=== PATIENT | male | born 1950 | race Caucasian/White ===

== ENCOUNTER 2018-05-01 14:30 | Outpatient (RCR) | payer OTHER, MEDICARE, SELFPAY | END 2018-05-22 23:59 | disposition home or self-care (01) | LOC: PRC 14:30 | PROVIDERS: Visit Provider Family Medicine | DX: J44.9 Chronic obstructive pulmonary disease, unspecified (principal); Z51.89 Encounter for other specified aftercare | CPT/HCPCS: G0424 ==

== ENCOUNTER 2018-05-03 15:55 | Observation (INO) | payer OTHER, MEDICARE, SELFPAY ==
[2018-05-03] VITALS (50 sets, daily range): BP systolic 82–133; BP diastolic 46–78; PULSE 77–97; RESP 14–18; TEMP 36.7–37.4; O2SAT 89–97
--- NOTE | 2018-05-03 16:08 | ED.GENADUL_ITS ---
Discharge Plan Disposition Patient Disposition: [facility] INPATIENT Condition: Fair Discharge Details Chief Complaint: Dizzy/Sync Clinical Impression: Hypotension, Hypoxia, Elevated d-dimer Primary Care Provider: Beena Lovett ED Provider: Morenita Rankin Home Meds and New Rx's Prescriptions: No Action atorvastatin 10 mg Tablet 10 mg PO HS RF: 0 carboxymethylcellulose sodium 0.5 % Dropperette 1 drp ophthalmic (eye) DIRECTED PRNRF: 0 tiotropium-olodaterol [Stiolto Respimat] 2.5-2.5 mcg/actuation Mist 1 puff Inhalation BID RF: 0 ergocalciferol (vitamin D2) 50,000 unit Capsule 1 cap PO DIRECTED RF: 0 hydrochlorothiazide 25 mg Tablet 25 mg PO QAM RF: 0 lisinopril 10 mg Tablet 10 mg PO QAM RF: 0 multivitamin with minerals Tablet 1 tab PO QAM RF: 0 Medical Decision Making 68-year-old male with a history of COPD who presents for hypotension and pulmonary rehab. Systolic blood pressure in the 60s at rehab. He admitted to feeling short of breath and dizzy after rehab which is now resolved. Denies chest pain. Has h/o prostate surgery 2 months ago at [facility]. Blood pressure in ED on arrival 84/51. Oxygen saturation 88-90% which pt's states is his baseline. EKG notes a rate of 90, sinus, low voltage, questionable <1mm ST elevation in I , II, V6. No ST depression. No old EKG to compare. Will repeat EKG. Diagnosis includes acs, pneumonia, PE, dissection, UTI, dehydration, electrolyte abnormality, medication causes. Pt states he has been taking his BP meds as prescribed. Will do an infectious and cardiac workup including d dimer, bnp, blood cultures, urinalysis. 1800 --labs reviewed and note white blood cell count of 10.82. BUN 36, creatinine 2.05, lactate 4.2, d-dimer 1380. Chest x-ray no acute findings. Labs concerning for PE, but unable to perform a CT chest due to altered kidney function. Would order a VQ scan here but the test takes hours to complete and pt may go to the [facility] so may d/w physician at [facility] and whether to give anticoagulation here and then possibility of VQ scan at the [facility]. 1820 -- d/w [facility] - pt can stay here based on insurance and he will likely have to pay for ambulance fee to [place]. D/w pt and he would rather stay here. WIll order VQ scan. UA notes 5-10 WBCs, rare bacteria, trace leukocyte esterace, negative nitrite, negative epithelial cells. Urine culture not done at reflex but will order. Patient has 0 out of 4 Sirs criteria. Suspect his elevated lactate may be due to dehydration. He also has no known history of altered kidney function. 1844 -- D/w Dr. Valencia - accepts pt for admission. 1855 --repeat EKG notes a rate of 84, sinus, improvement/near resolution of less than [address] elevation noted in 1, 2, V6. HPI General Mode of arrival: wheelchair . Date/Time Provider Initiated Documentation: 05/03/18 16:03 . Limitations to Documentation: no limitations . Information obtained by: patient . HPI Narrative: Patient is a 68-year-old male with a history of COPD who presents from pulmonary rehab for hypotension. Patient is followed at the [facility] but started pulmonary rehab here at the hospital this week. Plan is for 3 times weekly. Mele from pulmonary rehab states that patient pressure prior to onset of pulmonary rehab was 106/71 and systolic blood pressure after exercise was in the 60s. Patient states he has a history of hypertension but states since taking his lisinopril and hydrochlorothiazide, his blood pressure is generally within the normal range. Can states that patient's blood pressure was mildly low 2 days ago during pulmonary rehab. Patient states after exercise at pulmonary rehab today he felt short of breath and dizzy. He states his symptoms are now resolving. He currently denies any shortness of breath, dizziness or chest pain. He denies recent known fever, cough, abdominal pain, vomiting, diarrhea, urinary symptoms, recent hospital admission or recent antibiotics. Patient states he has been eating normally. Patient states his normal oxygen saturation is between 80 and 90% on room air. He denies being on home oxygen. Past medical history: COPD, hypertension, prostate cancer stage III, colon cancer - no h/o radiation or chemotherapy Surgical history: Prostate surgery 03/06/18 at [facility], colon surgery with polypectomy and for cancer resection Social history: Quit tobacco in 1999, smoked for 40 years, formal alcohol use, drinks 1-2 times monthly, denies drugs Medications: Stiolto inhaler 2 puffs daily, lisinopril, HCTZ Allergies: NKDA [facility] Home Medications Medication Instructions Recorded Confirmed atorvastatin 10 mg PO HS 05/03/18 05/03/18 carboxymethylcellulose sodium 1 drp OPHTHALMIC (EYE) DIRECTED 05/03/18 PRN ergocalciferol (vitamin D2) 1 cap PO DIRECTED 05/03/18 05/03/18 hydrochlorothiazide 25 mg PO QAM 05/03/18 05/03/18 lisinopril 10 mg PO QAM 05/03/18 05/03/18 multivitamin with minerals 1 tab PO QAM 05/03/18 05/03/18 tiotropium-olodaterol [Stiolto 1 puff INHALATION BID 05/03/18 05/03/18 Respimat] Allergies Allergy/AdvReac Type Severity Reaction Status Date / Time No Known Allergies Allergy Unverified 05/03/18 18:20 Review of Systems Review of Systems All systems reviewed & are unremarkable except as noted in HPI and below Constitutional Denies chills, Denies excessive sweating, Denies fatigue, Denies fever(s), Denies weakness and Denies weight loss Eyes Reports system reviewed and no additional complaints, except as docu and Denies blurry vision ENT Denies vertigo, Reports dizziness, Denies otalgia, Denies nasal congestion, Denies sore throat and Denies throat swelling Cardiovascular Denies chest pain, Denies syncope, Denies rapid heart rate and Reports dyspnea Respiratory Denies cough and Reports dyspnea Gastrointestinal Denies abdominal pain, Denies diarrhea and Denies vomiting Genitourinary Denies hematuria, Denies dysuria and Denies flank pain Musculoskeletal Denies back pain and Denies joint swelling Integumentary/Breasts Denies lesions and Denies rash Neurologic Denies behavioral changes, Denies confusion, Denies vertigo, Reports dizziness, Denies syncope and Denies weakness Psychiatric Denies behavioral changes, Denies confusion and Denies depression Endocrine Denies excessive sweating and Denies fatigue Hematologic/Lymphatic Denies easy bruising and Denies lymphadenopathy Allergic/Immunologic Denies throat swelling Exam Const General: cooperative and healthy appearing Orientation: alert and awake HENSC Head: normal to inspection Ears: hearing grossly normal bilaterally and external ears normal General nose exam: external nose normal Face and sinus: normal facial exam Mouth: oral mucosae normal Teeth and gingiva: dentition normal Throat: posterior oropharynx normal Eyes General: appearance normal, both eyes and all related structures Eyelids: eyelids normal EOM: EOM intact bilaterally Neck Neck: normal visual inspection Lymphatic: no lymphadenopathy noted Chest Chest: normal inspection of the chest Resp Effort & Inspection: normal respiratory effort and able to speak in complete sentences Auscultation: clear to auscultation bilaterally, bronchovesicular breath sounds bilaterally, no crackles, no rales, no rhonchi and wheezes right lower (minimal ) Cardio Rate: regular rate Rhythm: regular rhythm GI Inspection: normal to inspection Palpation: soft, not firm, no guarding, no hepatosplenomegaly, no masses and nontender Auscultation: normal bowel sounds Back/Spine/Pelvis Back: no CVA tenderness Skin General skin exam: no rashes or lesions noted Neuro General: alert and awake Cognition: normal cognition Speech: speech normal Gait: normal gait Motor: muscle tone normal throughout Sensory Exam: no sensory deficits noted Extrem General: normal to inspection, full ROM, normal capillary refill and no edema Psych Appearance: grossly normal Mental Status: mental status grossly normal Speech and Movement: speech and movement normal Affect: normal affect Thought Process: normal
[2018-05-03] MEDS: Normal Saline 250 ML IV (16:20)
--- NOTE | 2018-05-03 16:20 | DI.RAD_ITS ---
SYMPTOM/DIAGNOSIS: SOB, DIZZINESS PA AND LATERAL CHEST: The heart is not enlarged. The lungs appear hyperinflated but clear. No pleural effusion is seen. CONCLUSION: No evidence of acute disease.
[2018-05-03 16:21] LABS: Abs Immature Grans 0.03 k/cumm (0.0-0.09); Absolute Basophil Count 0.04 k/cumm (0.0-0.2); Absolute Eosinophil Count 0.12 k/cumm (0.0-0.7); Absolute Monocyte Count 0.91 k/cumm (0.11-0.7); Absolute Neutrophil Count 8.12 k/cumm (1.2-6.7); Basophils % 0.4; Eosinophils % 1.1; HCT 42.4 % (40.0-50.0); HGB 14.3 g/dL (13.5-17.5); Immature Grans % 0.3; Lactate-non-spesis 4.2 mmol/L (0.6-1.4); Lymphocytes % 14.8; Mean Corp. HGB Concentration 33.7 g/dL (32.0-36.0); Mean Corpuscular Hemoglobin 30.6 pg (27.0-33.0); Mean Corpuscular Volume 90.8 fL (80-95); Mean Platelet Volume 10.7 fL (8.0-11.0); Monocytes % 8.4; Platelet Count 279 x1000/uL (130-400); RBC 4.67 m/cumm (4.50-6.00); RBC Distribution Width 13.3 % (11.8-14.1); White Blood Cell Count 10.82 k/cumm (4.4-10.8)
[2018-05-03 16:39] LABS: ALT 39 U/L (12-78); AST 24 U/L (15-37); Albumin 3.8 g/dL (3.4-5.0); Alkaline Phosphatase 74 U/L (46-116); Anion Gap 12.3 mmol/L (3-11); BUN 36 mg/dL (7-18); Bilirubin, Direct 0.12 mg/dL (0.00-0.20); Bilirubin, Total 0.5 mg/dL (0.2-1.0); CO2 25.7 mmol/L (21.0-32.0); CREATININE 2.05 mg/dL (0.70-1.30); Calcium 9.4 mg/dL (8.5-10.1); Chloride 100 mmol/L (98-107); Estimated GFR 32.45 (mL/min/1.73m2); Glucose 129 mg/dL (70-100); Lipase 150 U/L (73-393); Magnesium 1.9 mg/dL (1.8-2.4); Potassium 3.9 mmol/L (3.5-5.1); Sodium 138 mmol/L (136-145); Total Protein 7.5 g/dL (6.4-8.2)
[2018-05-03 16:42] LABS: Troponin I < 0.02 ng/mL (0.00-0.06)
--- NOTE | 2018-05-03 17:06 | DI.VRAD_ITS ---
EXAM: XR Chest, 2 Views EXAM DATE/TIME: 05/03/2018 4:22 PM CLINICAL HISTORY: 68 years old, male; Signs and symptoms; Shortness of breath and other: Dizziness; Patient HX: SOB, dizziness; Additional info: R/O acute disease TECHNIQUE: Frontal and lateral views of the chest. COMPARISON: No relevant prior studies available. FINDINGS: Lungs: No evidence of acute cardiopulmonary disease. Suggesting mild chronic lung disease. No focal pulmonary consolidation. Pleural space: Within normal limits. No pneumothorax. Heart: Within normal limits. No cardiomegaly. Mediastinum: Within normal limits. Bones/joints: Bony structures unremarkable for age. Old right-sided rib fracture. IMPRESSION: No evidence of acute cardiopulmonary disease. Dictated and Authenticated by: Luis Alberto Hendricks MD. Ordering:PARKER BATRES MD
[2018-05-03 17:21] LABS: D-Dimer 1380 ng/mlFEU (<500)
[2018-05-03 17:52] LABS: NT-proBNP 146 pg/mL
[2018-05-03] MEDS: Normal Saline 1,000 ML 1000 ML IV (18:10)
[2018-05-03 18:18] LABS: Bilirubin Negative (Negative); Blood Negative (Negative); Clarity Clear; Glucose Negative (Negative); Ketones Negative (Negative); Leukocyte Esterase Trace (Negative); Nitrite Negative (Negative); Specific Gravity 1.015 (1.005-1.025); Urobilinogen 0.2 EU/dL (Up TO 0.2); pH 6.5 (5-8)
[2018-05-03 18:25] LABS: Bacteria Rare HPF (Negative); Casts Negative LPF (Negative); Crystals Negative HPF (Negative); Epithelial Cells Negative HPF (Negative); Mucus Negative (Negative); Other Cells Negative (Negative); RBC Negative (0-2)
--- NOTE | 2018-05-03 19:12 | W.PM.HP.N ---
Date of service: 05/03/18 Time of Service: 19:13 Assessment and Plan (1) Hypotension: Current visit: No Status: Acute Hypotension, etiology not clear. Some concern for coronary insufficiency given the onset immediately following exercise along with some subtle EKG changes. Will complete rule out protocol and if workup negative would advise a stress test otherwise a positive d-dimer is noted but I think this is like very likely a false positive. Certainly if patient had a pulmonary embolism sufficient to cause this degree of hypotension one would expect corresponding signs and symptoms. It is possible that dehydration has played some role. I do note the elevated lactate. Perhaps some of this was due to the brief period of hypotension but certainly there is no suggestion at all of infection and therefore septic shock. In short, will trend out the troponins, standby for VQ scan (and less troponins positive in which case we will cancel). Will hold patient's blood pressure medicines provisionally in case there is something evolving here. History of Present Illness Chief Complaint: Hypotension Narrative: Patient is a 68-year-old male with history of COPD and hypertension he was in pulmonary rehab today doing perfectly well however, after he had finished with his exercise he is was sitting down and felt weak and lightheaded. Blood pressure of 60 systolic was noted (unknown pulse). He was brought to the emergency room. In the emergency room initial blood pressure of 80 systolic with pulse of 90 was noted. Patient has been given 2 L of IV fluids and blood pressure now approximately 120 systolic. Patient's has had no chest pain or shortness of breath. No calf pain or swelling. He says he feels entirely well at present. Initial workup in the emergency room of note for EKG with some very subtle ST changes, less than 1 mm in scattered lead (no prior tracing available) with a negative troponin and a d-dimer of 1200. Troponin #2 is pending at this time. Due to creatinine elevation he is not a candidate for CT angiogram and a VQ scan has been ordered. Past medical history: COPD, hypertension Review of Systems Review of Systems All systems reviewed & are unremarkable except as noted in HPI and below PFSH Social History Smoking/Tobacco Use Status: Former Tobacco Use Meds Home Medications Medication Instructions Recorded Confirmed Type atorvastatin 10 mg PO HS 05/03/18 05/03/18 History carboxymethylcellulose sodium 1 drp OPHTHALMIC (EYE) DIRECTED 05/03/18 05/03/18 History PRN ergocalciferol (vitamin D2) 1 cap PO DIRECTED 05/03/18 05/03/18 History hydrochlorothiazide 25 mg PO QAM 05/03/18 05/03/18 History lisinopril 10 mg PO QAM 05/03/18 05/03/18 History multivitamin with minerals 1 tab PO QAM 05/03/18 05/03/18 History tiotropium-olodaterol [Stiolto 1 puff INHALATION BID 05/03/18 05/03/18 History Respimat] Allergies Allergy/AdvReac Type Severity Reaction Status Date / Time No Known Allergies Allergy Unverified 05/03/18 18:20 Exam Narrative Exam Narrative: Blood pressure 133/78 pulse 91 temp 37.1, respirations 16 O2 sat 95% on room. HEENT is unremarkable neck is supple lungs somewhat bronchial but clear. Heart PMI is within normal limits and there is no RV heave. Regular rate and rhythm without murmurs rubs or gallops. Abdomen is soft and nontender. and rectal exams are deferred extremities without cyanosis clubbing or edema, pulses are 2+ and equal, there is no calf tenderness and Homans sign is negative bilaterally Results Labs : 05/03/18 16:10 05/03/18 16:10 Laboratory Results - last 24 hr 05/03/18 05/03/18 05/03/18 16:10 16:10 16:10 WBC 10.82 H RBC 4.67 Hgb 14.3 Hct 42.4 MCV 90.8 MCH 30.6 MCHC 33.7 RDW 13.3 Plt Count 279 MPV 10.7 Immature Gran % 0.3 Neutrophils % 75.0 Lymphocytes % 14.8 Monocytes % 8.4 Eosinophils % 1.1 Basophils % 0.4 Absolute Neutrophils 8.12 H Absolute Lymphocytes 1.60 Absolute Monocytes 0.91 H Absolute Eosinophils 0.12 Absolute Basophils 0.04 D-Dimer Sodium 138 Potassium 3.9 Chloride 100 Carbon Dioxide 25.7 Anion Gap 12.3 H BUN 36 H Creatinine 2.05 H Estimated GFR/1.73 m2 32.45 Glucose 129 H Lactate 4.2 H Calcium 9.4 Magnesium 1.9 Total Bilirubin 0.5 Conjugated Bilirubin 0.12 AST 24 ALT 39 Alkaline Phosphatase 74 Troponin I < 0.02 NT-Pro-B Natriuret Pep Total Protein 7.5 Albumin 3.8 Lipase 150 Urine Color Urine Clarity Urine pH Ur Specific Dickens Urine Protein Urine Ketones Urine Blood Urine Nitrite Urine Bilirubin Urine Urobilinogen Ur Leukocyte Esterase Urine RBC Urine WBC Ur Epithelial Cells Urine Crystals Urine Bacteria Urine Casts Urine Mucus Urine Other Ur Culture Indicated? Urine Glucose 05/03/18 05/03/18 05/03/18 16:10 17:20 18:00 WBC RBC Hgb Hct MCV MCH MCHC RDW Plt Count MPV Immature Gran % Neutrophils % Lymphocytes % Monocytes % Eosinophils % Basophils % Absolute Neutrophils Absolute Lymphocytes Absolute Monocytes Absolute Eosinophils Absolute Basophils D-Dimer 1380 H Sodium Potassium Chloride Carbon Dioxide Anion Gap BUN Creatinine Estimated GFR/1.73 m2 Glucose Lactate Calcium Magnesium Total Bilirubin Conjugated Bilirubin AST ALT Alkaline Phosphatase Troponin I NT-Pro-B Natriuret Pep 146 Total Protein Albumin Lipase Urine Color Yellow Urine Clarity Clear Urine pH 6.5 Ur Specific Dickens 1.015 Urine Protein Negative Urine Ketones Negative Urine Blood Negative Urine Nitrite Negative Urine Bilirubin Negative Urine Urobilinogen 0.2 Ur Leukocyte Esterase Trace H Urine RBC Negative Urine WBC 5-10 Ur Epithelial Cells Negative Urine Crystals Negative Urine Bacteria Rare Urine Casts Negative Urine Mucus Negative Urine Other Negative Ur Culture Indicated? No Urine Glucose Negative Last Vital Signs Temp 37.2 C 05/03/18 18:11 Pulse 91 H 05/03/18 19:01 Resp 16 05/03/18 18:41 BP 133/78 05/03/18 19:01 Pulse Ox 95 05/03/18 19:01
[2018-05-03 20:05] LABS: Troponin I < 0.02 ng/mL (0.00-0.06)
[2018-05-03] MEDS: Atorvastatin 10 MG TAB PO (22:19)
[2018-05-04] VITALS (93 sets, daily range): BP systolic 102–153; BP diastolic 65–99; PULSE 66–106; RESP 8–33; TEMP 36.2–36.8; O2SAT 91–95
[2018-05-04 00:33] LABS: C & S Indicated? Yes
[2018-05-04 07:28] LABS: Troponin I < 0.02 ng/mL (0.00-0.06)
--- NOTE | 2018-05-04 07:57 | INITIAL_ITS ---
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 He has three grown children his daughter lives in [place], [place]. He receives all of his services through the [facility] and recently treated for prostate cancer with surgical intervention. He reports independence with ADL's and transportation. His cars are currently not running and he has been using the [facility] bus to and from places. CURRENT FUNCTIONAL STATUS:: Jose is sitting up in bed, his , daughter and grandson are present. His is asking appropiate questions. She states he has been in the hospital several times in the last few months which have been at the [facility]. He states he did not transfer to the [facility] this time because he did not want to take an ambulance ride. He reports a recent prostate surgery to remove the cancer he is not clear on the details. He does state that his oncologist through the [facility] and [facility] will continue to monitor his labs every three months. ADVANCE DIRECTIVES:: Patient states he completed in the ED CM will follow up Has patient been provided with information about the portal?: Yes Did the patient sign up for the portal?: No CODE STATUS:: Full Code INSURANCE COVERAGE / FINANCIAL ISSUES:: Medicare and [employer] CURRENT HOME/COMMUNITY SERVICES/EQUIPMENT:: [facility], and [facility] rehab PRIMARY CARE PHYSICIAN:: Beena Lovett, ANIL POTENTIAL DISCHARGE NEEDS:: Follow up appointment with primary care at the [facility], and continued services through pulmonary rehab PATIENT/FAMILY EDUCATION NEEDS:: Discharge planning, limitations and follow up plan of care. Ask me three discussion and self management. ANTICIPATED BARRIERS TO DISCHARGE:: None identified TRANSPORTATION:: RCT vs Family to transport home PLAN:: Jose will have a VQ scan today, he is being cared for in the ICU. Jose will be discharged home when medically ready per proivder. He will resume services through Pulmonary rehab and follow [facility] with [facility]. CM referred patient and his spouse to [facility] connections they have two cars that are not working and need assistance with transportation. Will also send a referral to [facility] for options to look at services he may qualify for. Jose agrees to referrals. CM provided RCT route scheudled to Jose and his spouse.
[2018-05-04 08:22] LABS: Lactate-non-spesis 0.8 mmol/L (0.6-1.4)
[2018-05-04 09:24] LABS: Anion Gap 9.3 mmol/L (3-11); BUN 29 mg/dL (7-18); CO2 25.7 mmol/L (21.0-32.0); CREATININE 1.24 mg/dL (0.70-1.30); Calcium 9.1 mg/dL (8.5-10.1); Chloride 106 mmol/L (98-107); Estimated GFR 57.97 (mL/min/1.73m2); Glucose 105 mg/dL (70-100); Potassium 3.8 mmol/L (3.5-5.1); Sodium 141 mmol/L (136-145)
--- NOTE | 2018-05-04 13:31 | DI.VRAD_ITS ---
EXAM: NM Lung Perfusion and Ventilation Scan CLINICAL HISTORY: 68 years old, male; Signs and symptoms; Dyspnea; Patient HX: Hypoxia, hypotension TECHNIQUE: Nuclear Medicine ventilation and perfusion images of the lungs were obtained in multiple projections following radiopharmaceutical inhalation followed by injection of Tc99m MAA. COMPARISON: CR XR CHEST 2V PA LATERAL 05/03/2018 4:34 PM FINDINGS: Moderate inhomogeneity to radiotracer activity on the perfusion scan however this appears to match her be less prominent than the ventilation inhomogeneity. This most likely is an indeterminate examination although it is more suggestive of chronic lung disease than of embolic disease. Minimal central activity on ventilation imaging which also is in keeping with chronic lung disease. IMPRESSION: Indeterminate examination. Dictated and Authenticated by: Luis Alberto Hendricks MD. Ordering:PARKER BATRES MD
[2018-05-04] MEDS: LEVOFLOXACIN 500 MG, LEVOFLOXACIN 250 MG 750 MG PO (13:55)
--- NOTE | 2018-05-04 13:56 | PHARADMIT ---
Addendum entered by Cinthya Aranda 05/05/18 12:30: Pharmacy Note Subjective Listed as observation, outpt stress test needed Objective BP 120/91, weight down 1.9kg overnight, lytes good Micro blood and urine: no growth Assessment BP's fluctuate Levaquin dc'd due to Micro urine Lovenox started HCTZ added today, Lisinopril still held intentionally Plan Original Note: Admission Pharmacy Clinical Review HYPOTENSION Code Status Full Code Current Weight 92.4 kg Renally Cleared and Narrow Therapeutic Index Meds CrCl~60ml/min QTc Value / Action Taken BP Control, Fever BP 102/70 Afebrile Electrolytes reviewed within range, but some Potassium and Magnesium given DVT Prophylaxis NONE Opiate Usage / Scheduled Bowel Regimen Ordered Plt/SCr for Heparin / Enoxaparin Plt 279 SCr 1.24 INR for Warfarin H/H stable, WBC/Bands H/H 14.3/42.4 WBC 10.82 Antibiotic appropriateness Levaquin 750mg oral Cultures and Sensitivities Micro urine: no growth x 24h.....treating anyway, maybe for respiratory status Micro blood: pending Surgical ABX d/c within 24 hr DM control / Insulin Dosing BG 105 Heart Failure (Check EF%) (JACKIE's, B-Block, Diuretics) IV to PO Switch Home Meds Reviewed Stiloto respimat (usually 2 puffs daily, per RT patient prefers one puff twice a day, gets better results) Home Meds Not Ordered Lisinopril/HCTZ-held intentionally, Vit D, MVI, Comments troponin negative x 3, one more level pending Lung VQ scan today
[2018-05-04] MEDS: Potassium Chloride 20 MEQ TABCR PO (14:17)
[2018-05-04 14:36] LABS: Troponin I < 0.02 ng/mL (0.00-0.06)
--- NOTE | 2018-05-04 14:36 | PGE_ITS ---
Assessment and Plan (1) Hypotension: Current visit: Yes Status: Acute Onset of post-exertional hypotension in patient undergoing pulmonary rehab. In discussion with patient it appears that he has had prior episodes, attributed to dehydration, and he is on diuretic therapy in the form of HCTZ and JACKIE-I. Current blood pressure appears improved - continue to hold antihypertensives and monitor closely. Due to elevated DDimer patient underwent V/Q scan - interpreted as intermediate , but notable for likely chronic lung disease as opposed to embolic disease. Hypotension was noted post exercise - has ruled out for ACS, but may benefit from stress testing either here or as an outpatient. Also noted to have trace LE and 5-10 WBCs on microscopy - initiate antibiotics for potential UTI and await urine culture results. Orthostatic blood pressures checked and normal. Elevated Lactate in setting of hypotension, along with KAY - both now improved/ resolved. (2) KAY (acute kidney injury): Current visit: Yes Status: Acute Improved with improving blood pressure. Continue to monitor. JACKIE-I on hold. (3) Hypertension: Current visit: Yes Status: Chronic HCTZ, JACKIE-I on hold. (4) COPD (chronic obstructive pulmonary disease): Current visit: Yes Status: Chronic Continue home regimen of long-acting inhaled anticholinergic. Duonebs prn. (5) DVT prophylaxis: Current visit: Yes Status: Acute Initiate SC Lovenox. Subjective Interval history since last seen: 68-year-old male man with a past medical history significant for COPD and hypertension, admitted from [facility] Emergency Department with hypotension of unclear etiology. Mr. Arevalo was in pulmonary rehab on the day of hisadmission, but following completion of his exercises he felt weak and lightheaded. Blood pressure of 60 systolic was noted (unknown pulse). He was brought to the emergency room where his initial systolic blood pressure was 80 systolic with pulse of 90. Patient was hydrated and referred for admission. The patient experienced no chest pain or shortness of breath, and reports feeling well. Initial workup in the emergency room was noteworthy for an EKG with some very subtle ST changes, less than 1 mm in scattered lead (no prior tracing available) , and the patient has since essentially ruled out with serial cardiac biomarkers , with last troponin pending at this time. Due to the elevation in his creatinine a VQ scan was performed which was interpreted as indeterminate, but more likely suggestive of chronic lung disease in patient with known COPD, than of embolic disease. Of note, the patient's creatinine has improved. There was also initial elevation in lactate, now normalized. No overnight events reported. Exam Narrative Exam Narrative: General: Patient appears comfortable, AAOX3, NAD Neck: Supple CV: Regular, nontachycardic, S1S2, No rubs, murmurs, or gallops. Distant Heart Sounds. Pulmonary: Clear to auscultation bilaterally, no crackles, wheezing, or rhonchi. Abdomen: + Bowel Sounds, soft, nontender, nondistended Vascular: No lower extremity edema Psych: Normal mood and affect. Objective Objective Clinical Data: Abnormal lab results 05/03/18 05/03/18 05/03/18 Range/Units 16:10 16:10 16:10 WBC 10.82 H (4.4-10.8) k/cumm Absolute Neutrophils 8.12 H (1.2-6.7) k/cumm Absolute Monocytes 0.91 H (0.11-0.7) k/cumm D-Dimer (<500) ng/mlFEU Anion Gap 12.3 H (3-11) mmol/L BUN 36 H (7-18) mg/dL Creatinine 2.05 H (0.70-1.30) mg/dL Glucose 129 H (70-100) mg/dL Lactate 4.2 H (0.6-1.4) mmol/L Ur Leukocyte Esterase (Negative) 05/03/18 05/03/18 05/04/18 Range/Units 16:10 18:00 08:05 WBC (4.4-10.8) k/cumm Absolute Neutrophils (1.2-6.7) k/cumm Absolute Monocytes (0.11-0.7) k/cumm D-Dimer 1380 H (<500) ng/mlFEU Anion Gap (3-11) mmol/L BUN 29 H (7-18) mg/dL Creatinine (0.70-1.30) mg/dL Glucose 105 H (70-100) mg/dL Lactate (0.6-1.4) mmol/L Ur Leukocyte Esterase Trace H (Negative) Vital Signs Temperature 36.2 C L 05/04/18 03:00 Temperature Source Temporal Artery Scan 05/04/18 03:00 Pulse 70 05/04/18 03:00 Pulse 89 05/03/18 20:20 Respiratory Rate 13 05/04/18 03:00 Respiratory Effort 05/04/18 03:00 Respiratory Depth Normal 05/04/18 03:00 Respiratory Pattern Normal 05/04/18 03:00 Blood Pressure 102/70 05/04/18 03:00 Blood Pressure Mean 80 05/04/18 03:00 Blood Pressure Position Supine 05/04/18 03:00 Pulse Oximetry 95 05/04/18 03:00 Oxygen Delivery Method Room Air 05/04/18 03:00 Oxygen Flow Rate 0 05/04/18 03:00 Pain Level 0 05/04/18 03:00 Comment 05/03/18 16:00 Intake & Output 05/03/18 05/04/18 05/04/18 23:59 11:59 23:59 Intake Total 2300 / 2300 1050 / 1050 Output Total 1400 / 1400 825 / 825 Balance 900 / 900 225 / 225 Weight 92.4 kg 92.4 kg Intake: IV 1999 / 1999 1000 / 1000 Oral 300 / 300 50 / 50 Output: Urine 1400 / 1400 825 / 825 Other: Urine Color Pale Yellow Urine Appearance Clear Clear Urine Odor None Comment Pt voids apx 100 to 250 cc clear yellow urine, just about every hour. He reports this to be normal for him. Pt voids apx 100 to 250 cc clear yellow urine, just about every hour. He reports this to be normal for him. Voiding Methods Urinal Urinal Laboratory Results WBC 10.82 k/cumm (4.4-10.8) H 05/03/18 16:10 RBC 4.67 m/cumm (4.50-6.00) 05/03/18 16:10 Hgb 14.3 g/dL (13.5-17.5) 05/03/18 16:10 Hct 42.4 % (40.0-50.0) 05/03/18 16:10 MCV 90.8 fL (80-95) 05/03/18 16:10 MCH 30.6 pg (27.0-33.0) 05/03/18 16:10 MCHC 33.7 g/dL (32.0-36.0) 05/03/18 16:10 RDW 13.3 % (11.8-14.1) 05/03/18 16:10 Plt Count 279 x1000/uL (130-400) 05/03/18 16:10 MPV 10.7 fL (8.0-11.0) 05/03/18 16:10 Immature Gran % 0.3 05/03/18 16:10 Neutrophils % 75.0 05/03/18 16:10 Lymphocytes % 14.8 05/03/18 16:10 Monocytes % 8.4 05/03/18 16:10 Eosinophils % 1.1 05/03/18 16:10 Basophils % 0.4 05/03/18 16:10 Absolute Neutrophils 8.12 k/cumm (1.2-6.7) H 05/03/18 16:10 Absolute Lymphocytes 1.60 k/cumm (1.2-3.4) 05/03/18 16:10 Absolute Monocytes 0.91 k/cumm (0.11-0.7) H 05/03/18 16:10 Absolute Eosinophils 0.12 k/cumm (0.0-0.7) 05/03/18 16:10 Absolute Basophils 0.04 k/cumm (0.0-0.2) 05/03/18 16:10 D-Dimer 1380 ng/mlFEU (<500) H 05/03/18 16:10 Sodium 141 mmol/L (136-145) 05/04/18 08:05 Potassium 3.8 mmol/L (3.5-5.1) 05/04/18 08:05 Chloride 106 mmol/L (98-107) 05/04/18 08:05 Carbon Dioxide 25.7 mmol/L (21.0-32.0) 05/04/18 08:05 Anion Gap 9.3 mmol/L (3-11) 05/04/18 08:05 BUN 29 mg/dL (7-18) H 05/04/18 08:05 Creatinine 1.24 mg/dL (0.70-1.30) D 05/04/18 08:05 Estimated GFR/1.73 m2 57.97 (mL/min/1.73m2) 05/04/18 08:05 Glucose 105 mg/dL (70-100) H 05/04/18 08:05 Lactate 0.8 mmol/L (0.6-1.4) 05/04/18 08:05 Calcium 9.1 mg/dL (8.5-10.1) 05/04/18 08:05 Magnesium 1.9 mg/dL (1.8-2.4) 05/03/18 16:10 Total Bilirubin 0.5 mg/dL (0.2-1.0) 05/03/18 16:10 Conjugated Bilirubin 0.12 mg/dL (0.00-0.20) 05/03/18 16:10 AST 24 U/L (15-37) 05/03/18 16:10 ALT 39 U/L (12-78) 05/03/18 16:10 Alkaline Phosphatase 74 U/L (46-116) 05/03/18 16:10 Troponin I < 0.02 ng/mL (0.00-0.06) 05/04/18 06:40 NT-Pro-B Natriuret Pep 146 pg/mL (-299) 05/03/18 17:20 Total Protein 7.5 g/dL (6.4-8.2) 05/03/18 16:10 Albumin 3.8 g/dL (3.4-5.0) 05/03/18 16:10 Lipase 150 U/L (73-393) 05/03/18 16:10 Urine Color Yellow (Yellow) 05/03/18 18:00 Urine Clarity Clear 05/03/18 18:00 Urine pH 6.5 (5-8) 05/03/18 18:00 Ur Specific Adel 1.015 (1.005-1.025) 05/03/18 18:00 Urine Protein Negative mg/dL (Negative) 05/03/18 18:00 Urine Ketones Negative mg/dL (Negative) 05/03/18 18:00 Urine Blood Negative (Negative) 05/03/18 18:00 Urine Nitrite Negative (Negative) 05/03/18 18:00 Urine Bilirubin Negative (Negative) 05/03/18 18:00 Urine Urobilinogen 0.2 EU/dL (Up TO 0.2) 05/03/18 18:00 Ur Leukocyte Esterase Trace (Negative) H 05/03/18 18:00 Urine RBC Negative (0-2) 05/03/18 18:00 Urine WBC 5-10 HPF (0-5) 05/03/18 18:00 Ur Epithelial Cells Negative HPF (Negative) 05/03/18 18:00 Urine Crystals Negative HPF (Negative) 05/03/18 18:00 Urine Bacteria Rare HPF (Negative) 05/03/18 18:00 Urine Casts Negative LPF (Negative) 05/03/18 18:00 Urine Mucus Negative (Negative) 05/03/18 18:00 Urine Other Negative (Negative) 05/03/18 18:00 Ur Culture Indicated? Yes 05/03/18 18:00 Urine Glucose Negative mg/dL (Negative) 05/03/18 18:00 Objective Narrative Objective Narrative: Exam(s) EXAM: NM Lung Perfusion and Ventilation Scan CLINICAL HISTORY: 68 years old, male; Signs and symptoms; Dyspnea; Patient HX: Hypoxia, hypotension TECHNIQUE: Nuclear Medicine ventilation and perfusion images of the lungs were obtained in multiple projections following radiopharmaceutical inhalation followed by injection of Tc99m MAA. COMPARISON: CR XR CHEST 2V PA LATERAL 05/03/2018 4:34 PM FINDINGS: Moderate inhomogeneity to radiotracer activity on the perfusion scan however this appears to match her be less prominent than the ventilation inhomogeneity. This most likely is an indeterminate examination although it is more suggestive of chronic lung disease than of embolic disease. Minimal central activity on ventilation imaging which also is in keeping with chronic lung disease. IMPRESSION: Indeterminate examination.
[2018-05-04] MEDS: Magnesium Oxide 400 MG TAB PO (16:58)
--- NOTE | 2018-05-04 18:29 | DI.NM_ITS ---
SYMPTOM/DIAGNOSIS: HYPOXIA, HYPOTENSION, DYSPNEA, ? PE VENTILATION PERFUSION LUNG SCAN: Ventilation perfusion lung scan was performed according to the usual protocol with intravenous infusion of 5.2 millicuries of Technetium 99 labeled Macro aggregated albumin. Ventilation scanning was performed with inhalation of 31.5 millicuries of Technetium 99 labeled DTPA. Thee is heterogeneity of uptake on both ventilation and perfusion images which is widespread. The ventilation perfusion scans appear fairly well matched and no gross lobar mismatch is seen. CONCLUSION: Indeterminate study. Findings likely due to severe COPD. Pulmonary embolic disease not excluded on the basis of this examination.
[2018-05-04] MEDS: Atorvastatin 10 MG TAB PO (20:52)
[2018-05-05] VITALS (13 sets, daily range): BP systolic 120–146; BP diastolic 91–96; PULSE 66–102; RESP 12–23; TEMP 36.2–36.6; O2SAT 91–96
[2018-05-05 08:26] LABS: Anion Gap 8.2 mmol/L (3-11); BUN 25 mg/dL (7-18); CO2 27.8 mmol/L (21.0-32.0); CREATININE 1.16 mg/dL (0.70-1.30); Calcium 9.2 mg/dL (8.5-10.1); Chloride 103 mmol/L (98-107); Glucose 108 mg/dL (70-100); Potassium 4.3 mmol/L (3.5-5.1); Sodium 139 mmol/L (136-145)
[2018-05-05] MEDS: Enoxaparin 40 MG/0.4 ML SYR SC (09:04)
[2018-05-05] MEDS: Hydrochlorothiazide 25 MG TAB PO (09:04)
--- NOTE | 2018-05-05 12:16 | DSE_ITS ---
Date of service: 05/05/18 Time of Service: 12:03 DS: Diagnosis Discharge Diagnosis (1) Hypotension: Status: Acute (2) KAY (acute kidney injury): Status: Acute Discharge Plan Disposition Patient Disposition: HOME Condition: Improving Discharge Details Reason For Visit: HYPOTENSION Admit Date/Time: 05/03/18 20:52 Admit Provider: Beka Valencia Attending Provider: Beka Valencia Primary Care Provider: Beena Lovett Hospital Course Hospital Course: CC: Hypotension HPI: 68-year-old male man with a past medical history significant for COPD and hypertension, admitted from [facility] Emergency Department with hypotension of unclear etiology. Mr. Arevalo was in pulmonary rehab on the day of hisadmission, but following completion of his exercises he felt weak and lightheaded. He reportedly had worked out vigorously, and following his workout became symptomatic and dizzy. Blood pressure of 60 systolic was noted (unknown pulse) by staff at Pulmonary rehab and he was referred to the emergency room where his initial systolic blood pressure was 80 systolic with pulse of 90. He was hydrated and referred for admission. The patient experienced no chest pain or shortness of breathl. Initial workup in the emergency room was noteworthy for an EKG with some very subtle and minimal ST changes, less than 1 mm in scattered lead (no prior tracing available), and the patient has since ruled out with serial cardiac biomarkers. Due to the elevation in his creatinine a VQ scan was performed which was interpreted as indeterminate, but more likely suggestive of chronic lung disease in patient with known COPD, than of embolic disease. Of note, the patient's creatinine also improved. There was also initial elevation in lactate , normalized the morning following admission. Blood pressure improved over the initial day after admission with both thiazide and home JACKIE-I held, and the patient eventually became normotensive and then hypertensive, with a systolic range of 130-150's since yesterday afternoon. No overnight events reported. Hospital Course: 1) Hypotension: Onset of post-exertional hypotension in patient undergoing virgorous exercise in pulmonary rehab. In discussion with patient it appears that he has had prior episodes, attributed to dehydration, and he is on diuretic therapy in the form of HCTZ and JACKIE-I. Current blood pressure appears improved and now slightly hypertensive. Due to elevated DDimer patient underwent V/Q scan - interpreted as intermediate , but notable for likely chronic lung disease as opposed to embolic disease. Hypotension was noted post exercise - has ruled out for ACS, but may benefit from stress testing either here or as an outpatient. Options were offered but patient refusing to stay until tomorrow when stress testing is available, and opting to undergo outpatient testing. Will ensure rapid testing with ETT with ECHO, and recommend that patient refrain from strenuous activity until then. Also noted to have trace LE and 5-10 WBCs on microscopy, but with urine culture showing no growth X48 hours. Orthostatic blood pressures checked and normal. Mr. Arevalo is being discharged with recommendations for reinitiation of his thiazide, but with continued holding of his JACKIE-I. Repeat BMP also ordered given recent KAY. Elevated Lactate in setting of hypotension, along with KAY - both now improved/ resolved. (2) KAY (acute kidney injury): Improved with improving blood pressure. Unsure of baseline, but original creatinine of 2.05 now normalized at 1.16. Will continue to hold JACKIE-I for now, especially given episode of hypotension, and recheck BMP in 2-3 days. (3) Hypertension: HCTZ restarted, JACKIE-I on hold as above. (4) COPD (chronic obstructive pulmonary disease): Appears Quiescent. Continue home regimen of long-acting inhaled anticholinergic. (5) Disposition Discharge today with recommendations for follow-up with PCP in one week, repeat labs in 3 days, and exercise treadmill stress ECHO soon. Home Meds and New Rx's Prescriptions: Continue atorvastatin 10 mg Tablet 10 mg PO HS RF: 0 carboxymethylcellulose sodium 0.5 % Dropperette 1 drp ophthalmic (eye) DIRECTED PRNRF: 0 tiotropium-olodaterol [Stiolto Respimat] 2.5-2.5 mcg/actuation Mist 1 puff Inhalation BID RF: 0 ergocalciferol (vitamin D2) 50,000 unit Capsule 1 cap PO DIRECTED RF: 0 hydrochlorothiazide 25 mg Tablet 25 mg PO QAM RF: 0 multivitamin with minerals Tablet 1 tab PO QAM RF: 0 Discontinued lisinopril 10 mg Tablet 10 mg PO QAM RF: 0 Discharge Instructions Instructions: Acute Kidney Injury (GEN), Hypotension (GEN) Additional Instructions: Please see your primary care doctor within one week. Repeat blood work in 3 days. Activity:: No Strenuous Activity Equipment/Supplies:: No Equipment Needed Diet:: Heart Healthy Discharge Orders Discharge Orders: Discharge Order (Routine); Ordered 05/05/18 Ordered By: Phi Terry Other Ambulatory Orders: ETT Stress Test (Outpt) (ONCE) (1) Location: Determined by Patient Ordered By: Phi Terry Basic Metabolic Panel (Routine) Timeframe: 3 Days Location: Determined by Patient Ordered By: Phi Terry US echocardiogram (Routine) Location: Determined by Patient Ordered By: Phi Terry Exam Narrative Exam Narrative: General: Patient appears comfortable, AAOX3, NAD Neck: Supple CV: Regular, nontachycardic, S1S2, No rubs, murmurs, or gallops. Distant Heart Sounds. Pulmonary: Clear to auscultation bilaterally, no crackles, wheezing, or rhonchi. Abdomen: + Bowel Sounds, soft, nontender, nondistended Vascular: No lower extremity edema Psych: Normal mood and affect. DS: Data Vitals/I&O Vitals and I&O: Vital Signs Vital Signs Temp Pulse Pulse Resp BP BP BP 05/05/18 08:48 96 H 23 120/91 H 05/05/18 08:40 36.4 C L 93 H 16 120/91 H 05/05/18 08:00 18 05/05/18 04:59 36.3 C L 18 146/96 H 05/05/18 04:00 18 05/05/18 02:00 19 05/05/18 01:50 20 05/05/18 00:42 36.6 C Pulse Ox 05/05/18 08:48 05/05/18 08:40 92 L 05/05/18 08:00 05/05/18 04:59 91 L 05/05/18 04:00 05/05/18 02:00 05/05/18 01:50 05/05/18 00:42 Temperature 36.4 C L 05/05/18 08:40 Temperature Source Temporal Artery Scan 05/05/18 08:40 Pulse 96 H 05/05/18 08:48 Pulse 96 H 05/05/18 08:48 Respiratory Rate 23 05/05/18 08:48 Respiratory Effort 05/05/18 08:40 Respiratory Depth Normal 05/05/18 08:40 Respiratory Pattern Normal 05/05/18 04:59 Blood Pressure 120/91 H 05/05/18 08:48 Blood Pressure Mean 98 05/05/18 08:48 Blood Pressure Position Sitting 05/05/18 08:40 Pulse Oximetry 92 L 05/05/18 08:40 Oxygen Delivery Method Room Air 05/05/18 08:40 Oxygen Flow Rate 0 05/05/18 08:40 Pain Level 0 05/05/18 08:40 Comment 05/03/18 16:00 Intake & Output 05/04/18 05/05/18 05/05/18 23:59 11:59 23:59 Intake Total 480 / 480 865 / 865 Output Total 1600 / 1600 1175 / 1175 Balance -1120 / -1120 -310 / -310 Weight 90.5 kg Intake: Oral 480 / 480 865 / 865 Output: Urine 1600 / 1600 1175 / 1175 Other: Urine Color Yellow Light Caitlyn Urine Appearance Clear Clear Urine Odor Normal Strong Comment unknown amount spilled on floor using urinal at bedside, urine dip unremarkable. Voiding Methods Urinal Urinal Completed studies during hospitalization [Text1]: EXAM: XR Chest, 2 Views EXAM DATE/TIME: 05/03/2018 4:22 PM CLINICAL HISTORY: 68 years old, male; Signs and symptoms; Shortness of breath and other: Dizziness; Patient HX: SOB, dizziness; Additional info: R/O acute disease TECHNIQUE: Frontal and lateral views of the chest. COMPARISON: No relevant prior studies available. FINDINGS: Lungs: No evidence of acute cardiopulmonary disease. Suggesting mild chronic lung disease. No focal pulmonary consolidation. Pleural space: Within normal limits. No pneumothorax. Heart: Within normal limits. No cardiomegaly. Mediastinum: Within normal limits. Bones/joints: Bony structures unremarkable for age. Old right-sided rib fracture. IMPRESSION: No evidence of acute cardiopulmonary disease. EXAM: NM Lung Perfusion and Ventilation Scan CLINICAL HISTORY: 68 years old, male; Signs and symptoms; Dyspnea; Patient HX: Hypoxia, hypotension TECHNIQUE: Nuclear Medicine ventilation and perfusion images of the lungs were obtained in multiple projections following radiopharmaceutical inhalation followed by injection of Tc99m MAA. COMPARISON: CR XR CHEST 2V PA LATERAL 05/03/2018 4:34 PM FINDINGS: Moderate inhomogeneity to radiotracer activity on the perfusion scan however this appears to match her be less prominent than the ventilation inhomogeneity. This most likely is an indeterminate examination although it is more suggestive of chronic lung disease than of embolic disease. Minimal central activity on ventilation imaging which also is in keeping with chronic lung disease. IMPRESSION: Indeterminate examination. Labs on day of discharge: Labs from last 24 hours 05/05/18 05/04/18 08:10 14:00 Sodium 139 Potassium 4.3 Chloride 103 Carbon Dioxide 27.8 Anion Gap 8.2 BUN 25 H Creatinine 1.16 Estimated GFR/1.73 m2 >= 60.00 Glucose 108 H Calcium 9.2 Troponin I < 0.02 Preliminary micro results at discharge 05/03/18 17:20 Blood Culture - Preliminary Blood NO GROWTH 24 HOURS 05/03/18 17:10 Blood Culture - Preliminary Blood NO GROWTH 24 HOURS
--- NOTE | 2018-05-06 10:47 | PDOC.CMDIS ---
- If Service Date Differs Date of service: 05/06/18 Time of Service: 10:48 LACE Index Scoring Tool - Questions: Length of Stay (in days): 3 Acuity (Admit via E.D.?): Yes Comorbidities: Chronic Pulmonary Disease E.D. Visits: 1 - Answers: Total Score: 9 Risk of Readmission: Low Risk Care Management Discharge Reason for Hospitalization: Hypotension post pulmonary rehab Discharge Plan: Jose will be discharged home today with a referral to [facility]. Transporation concerns and mulitple follow up appointments at [place]. Jose was provided the contact information for [facility] and the shuttle schedule. He will discharge home with no addtional services at this time and follow up with the stress lab for outpatient services. He understands he will need to follow up with his [facility] pro[facility] as directed. Patient spouse is present at the time of discharge and states she understands the instruction. Patient/Family Education Needs: Discharge education, limitaitons and follow up plan of care including ask me three discussion and self management.
--- NOTE | 2018-05-06 11:13 | CMDISCH_ITS ---
- If Service Date Differs Date of service: 05/06/18 Time of Service: 10:48 LACE Index Scoring Tool - Questions: Length of Stay (in days): 3 Acuity (Admit via E.D.?): Yes Comorbidities: Chronic Pulmonary Disease E.D. Visits: 1 - Answers: Total Score: 9 Risk of Readmission: Low Risk Care Management Discharge Reason for Hospitalization: Hypotension post pulmonary rehab Discharge Plan: Jose will be discharged home today with a referral to [facility]. Transporation concerns and mulitple follow up appointments at [place]. Jose was provided the contact information for [facility] and the shuttle schedule. He will discharge home with no addtional services at this time and follow up with the stress lab for outpatient services. He understands he will need to follow up with his [facility] pro[facility]der as directed. Patient spouse is present at the time of discharge and states she understands the instruction. Patient/Family Education Needs: Discharge education, limitaitons and follow up plan of care including ask me three discussion and self management.
== END 2018-05-05 13:35 | disposition home or self-care (01) ==
LOC: ER 19:44 → ICU 21:11
PROVIDERS: Admitting Provider General Practice; Emergency Provider Physician Assistant; Visit Provider Internal Medicine
DX: I95.9 Hypotension, unspecified (principal); N17.9 Acute kidney failure, unspecified; J44.9 Chronic obstructive pulmonary disease, unspecified; I10 Essential (primary) hypertension; R79.1 Abnormal coagulation profile; Z87.891 Personal history of nicotine dependence; Z23 Encounter for immunization
CPT/HCPCS: 36410; 36415; 78582; 80048; 80053; 80076; 83690; 87040; 93005; 94640; 96360; 96361; 99222; 99233; 99239; 99285; J1650; 71046; 81003; 81015; 83605; 83735; 83880; 84484; 85025; 85379; 87086; 93010; 99217; G0378

== ENCOUNTER 2018-05-06 01:24 | Outpatient (CLI) | payer OTHER, MEDICARE, SELFPAY ==
[2018-05-06 09:33] LABS: BUN 28 mg/dL (7-18); CREATININE 1.43 mg/dL (0.70-1.30); Calcium 9.2 mg/dL (8.5-10.1); Chloride 103 mmol/L (98-107); Estimated GFR 49.18 (mL/min/1.73m2); Glucose 113 mg/dL (70-100); Potassium 3.9 mmol/L (3.5-5.1); Sodium 139 mmol/L (136-145)
--- NOTE | 2018-05-06 10:30 | MERGE_ITS ---
*[facility]* *[facility]* [address] [place] [address] Date of study: 05/06/2018 Transthoracic Echocardiography M-mode, complete 2D, complete spectral Doppler, and color Doppler *STUDY CONCLUSIONS* Summary: 1. Left ventricle: Wall thickness was at the upper limits of normal. Systolic function was normal. The estimated ejection fraction was 55-60%. Diastolic parameters were normal for age. There was no evidence of elevated ventricular filling pressure by Doppler parameters. 2. Right ventricle: The cavity size was normal. Wall thickness was normal. Systolic function was normal. 3. Atrial septum: No defect or patent foramen ovale was identified. 4. Pulmonary arteries: Pulmonary systolic pressure was in the range of 35mm Hg to 45mm Hg. 5. Inferior vena cava: The vessel was patent and normal in size. The respirophasic diameter changes were in the normal range (greater than or equal to 50%), consistent with normal central venous pressure. *PATIENT PRESENTATION* Height: 180.3cm ((71in) ) S/D Pressure: 143 / 90 Weight: 92.5kg ((203.6lb) ) BSA: 2.17m^2 Test start time: 10:40 AM. Test stop time: 11:30 AM. PERFORMING Unknown ORDERING Phi Terry REFERRING Phi Terry PERFORMING [facility] CHAINMAN RT Sukhi (R)(CT), [facility] REFERRING Beena Lovett *PROCEDURE DATA* Procedure information: The patient was identified by two identifiers. This study was interpreted by [facility]. Pertinent images and digital data are archived for permanent storage and are available for subsequent review. No prior study was available for comparison. Study status: Routine. Transthoracic echocardiography. M-mode, complete 2D, complete spectral Doppler, and color Doppler. A Transthoracic Echocardiogram was performed. Scanning was performed from the parasternal, apical, subcostal, and suprasternal notch acoustic windows. Images were obtained using an [id number] cardiac ultrasound machine. Image quality was adequate. Study completion: The patient tolerated the procedure well. History: PMH: Hypotension. Essential HTN, weakness, lightheaded, dizziness. *CARDIAC ANATOMY* Left ventricle: Wall thickness was at the upper limits of normal. Systolic function was normal. The estimated ejection fraction was 55-60%. Diastolic parameters were normal for age. There was no evidence of elevated ventricular filling pressure by Doppler parameters. Aortic valve: Doppler: VTI ratio of LVOT to aortic valve: 0.72. Valve area (VTI): 2.5cm^2. Indexed valve area (VTI): 1.1cm^2/m^2. Peak velocity ratio of LVOT to aortic valve: 0.73. Valve area (Vmax): 2.5cm^2. Indexed valve area (Vmax): 1.2cm^2/m^2. Mean velocity ratio of LVOT to aortic valve: 0.75. Valve area (Vmean): 2.6cm^2. Indexed valve area (Vmean): 1.2cm^2/m^2. Mean gradient (S): 2.8mm Hg. Peak gradient (S): 4.8mm Hg. Mitral valve: Doppler: There was no evidence for stenosis. There was no significant regurgitation. Valve area by pressure half-time: 2.2cm^2. Indexed valve area by pressure half-time: 1cm^2/m^2. Left atrium: The atrium was normal in size. Atrial septum: No defect or patent foramen ovale was identified. Right ventricle: The cavity size was normal. Wall thickness was normal. Systolic function was normal. Pulmonic valve: Doppler: There was no evidence for stenosis. There was no significant regurgitation. Tricuspid valve: Doppler: There was mild regurgitation. Pulmonary artery: Poorly visualized. Pulmonary systolic pressure was in the range of 35mm Hg to 45mm Hg. Right atrium: The atrium was normal in size. Pericardium: There was no pericardial effusion. Systemic veins: Inferior vena cava: Well visualized. The vessel was patent and normal in size. The respirophasic diameter changes were in the normal range (greater than or equal to 50%), consistent with normal central venous pressure. Baseline ECG: Normal sinus rhythm. Measurements Left ventricle Value Reference LV ID, ED, PLAX 4.2 cm 3.5 - 6.0 LV ID, ES, PLAX 3.0 cm 2.1 - 4.0 LV PW thickness, ED, PLAX 1.0 cm LV end-diastolic volume, 1-p A2C 43 ml LV ejection fraction, 1-p A2C 58 % LV end-diastolic volume, 1-p A4C 44 ml LV ejection fraction, 1-p A4C 54 % LV e', lateral 0.076 m/sec LV E/e', lateral 5 LV e', medial 0.077 m/sec LV E/e', medial 5 LV e', average 0.076 m/sec LV E/e', average 5 Ventricular septum Value Reference IVS thickness, ED, PLAX 1.1 cm LVOT Value Reference LVOT ID, A-P 2.1 cm LVOT area 3.5 cm^2 LVOT peak velocity, S 0.8 m/sec LVOT mean velocity, S 0.6 m/sec LVOT VTI, S 15.2 cm LVOT peak gradient, S 2.6 mm Hg LVOT mean gradient, S 1.6 mm Hg Stroke volume (SV), LVOT DP 52 ml Stroke index (SV/bsa), LVOT DP 24 ml/m^2 Aortic valve Value Reference Aortic valve peak velocity, S 1.1 m/sec Aortic valve mean velocity, S 0.8 m/sec Aortic valve VTI, S 21.0 cm Aortic mean gradient, S 2.8 mm Hg Aortic peak gradient, S 4.8 mm Hg VTI ratio, LVOT/AV 0.72 Aortic valve area, VTI 2.5 cm^2 Velocity ratio, peak, LVOT/AV 0.73 Aortic valve area, peak velocity 2.5 cm^2 Velocity ratio, mean, LVOT/AV 0.75 Aortic valve area, mean velocity 2.6 cm^2 Aortic valve area/bsa, mean velocity 1.2 cm^2/m^2 Aorta Value Reference Aortic root ID, ED 3.5 cm Ascending aorta ID, A-P, S 3.5 cm RVOT Value Reference RVOT VTI, S 9.8 cm Left atrium Value Reference LA ID, A-P, ES 3.5 cm LA ID/bsa, A-P 1.6 cm/m^2 <=2.2 LA area, ES, A4C 12.4 cm^2 8.8 - 23.4 LA area, ES, A2C 10 cm^2 LA volume/bsa, ES, 1-p A4C 13 ml/m^2 LA volume, ES, 2-p 25 ml LA volume/bsa, ES, 2-p 12 ml/m^2 LA/aortic root ratio 1 Mitral valve Value Reference Mitral E-wave peak velocity 0.36 m/sec Mitral A-wave peak velocity 0.67 m/sec Mitral deceleration time (H) 341 ms 150 - 230 Mitral pressure half-time 99 ms Mitral E/A ratio, peak 0.54 Mitral valve area, PHT, DP 2.2 cm^2 Tricuspid valve Value Reference Tricuspid regurg peak velocity 3 m/sec Tricuspid peak RV-RA gradient 36.4 mm Hg Right atrium Value Reference RA area, ES, A4C 10.5 cm^2 8.3 - 19.5 Legend: (L) and (H) jasmeet values outside specified reference range. I have personally reviewed the images and have reviewed and edited the reported findings. Electronically signed by Tha Chen MD 05/06/2018 15:17
== END 2018-05-06 01:44 ==
PROVIDERS: Visit Provider Internal Medicine
DX: N17.9 Acute kidney failure, unspecified (principal); I10 Essential (primary) hypertension; R42 Dizziness and giddiness; R29.898 Other symptoms and signs involving the musculoskeletal system
CPT/HCPCS: 36415; 80048; 93306

== ENCOUNTER 2018-05-09 00:28 | Outpatient (CLI) | payer OTHER, MEDICARE, SELFPAY ==
--- NOTE | 2018-05-09 14:00 | ETT_ITS ---
*[facility]* *[facility]* [address] [place] [address] Stress Electrocardiography Rashel protocol Date of study: 05/09/2018 *PATIENT PRESENTATION* Height: 180.3cm (71in) Blood Pressure: Weight: 92.7kg (204lb) BSA: 2.17m^2 Ordering physician: Phi Terry Impressions: Abnormal study , ST depressions without angina. Summary: 1. Stress: The target heart rate was achieved. Recommendations: If high clinical suspicion for CAD suggest exercise perfusion study for further risk stratification. Indication: R94.32. History: Patient's presenting symptoms: asymptomatic. REASON FOR VISIT: PATIENT ADMITTED TO HOSPITAL 05/03/18 AFTER SYMPTOMATIC HYPOTENSIVE RESPONSE TO EXERCISE DURING PULMONARY REHABILITATION. BLOOD PRESSURE RESPONDED TO 2L FLUID BOLUS, NEGATIVE TROPONINS, AND SUBTLE ST CHANGES IN SCATTERED LEADS ON EKG. OUTPATIENT STRESS TEST ORDERED BY HOSPITALIST. 05/04/18 VENTILATION PERFUSION LUNG SCAN: INDETERMINATE STUDY. FINDINGS LIKELY DUE TO SEVERE COPD. 05/06/18 ECHOCARDIOGRAM: EJECTION FRACTION 55-60%. NORMAL STUDY. PAST MEDICAL HISTORY: COPD. HTN. HX PROSTATE AND COLON CANCER. FAMILY HISTORY: NONE. SMOKING STATUS: 40 YEAR SMOKING HISTORY, 1 07/24 PPD. QUIT IN 1999. EXERCISE ROUTINE: PULMONARY REHABILITATION 3X/WEEK. PMH: COPD. Risk factors: Current tobacco use. Hypertension. ALLERGIES: NO KNOWN ALLERGIES. MEDICATIONS: ATORVASTATIN 10MG, BEDTIME. ERGOCALCIFEROL 1 CAP, WEEKLY. HYDROCHLOROTHIAZIDE 25MG, DAILY. MULTIVITAMIN W/ MINERALS 1 TAB, DAILY. TIOTROPIUM-OLODATEROL 1 PUFF, BID. Protocol: Rashel protocol. Baseline ECG: SINUS RHYTHM. HEART RATE 69 BPM. Stress protocol: + +---+ + !Stage !HR !BP (mmHg) ! + +---+ + !Baseline supine !69 !146/82 (103)! + +---+ + !Baseline standing !77 !144/90 (108)! + +---+ + !Stage I; 1.7mph, 10degrees; 3 min !109!122/70 (87) ! + +---+ + !Stage II; 2.5mph, 12degrees; 3 min!120!128/70 (89) ! + +---+ + !Recovery; 1 min !121!110/58 (75) ! + +---+ + !Recovery; 3 min !102!132/82 (99) ! + +---+ + !Recovery; 6 min !98 !140/74 (96) ! + +---+ + !Recovery; 9 min !97 !128/76 (93) ! + +---+ + * Stress results: Maximal heart rate during stress was 133bpm (88% of maximal predicted heart rate). The maximal predicted heart rate was 152bpm. The target heart rate was achieved. The rate-pressure product for the peak heart rate and blood pressure was 03655gh Hg/min. Stress ECG: TREADMILL PORTION OF EXERCISE STRESS TEST ENDED IN 7MIN 27SEC DUE TO PATIENT FATIGUE AND DYSPNEA. APPROPRIATE HEART RATE RESPONSE TO EXERCISE. HYPOTENSIVE RESPONSE TO EXERCISE, ASYMPTOMATIC. MAX HEART RATE 133 BPM, 87% OF TARGET. APPROXIMATE METS ACHIEVED 9.26. NO ANGINA REPORTED. NO ECTOPY NOTED. UPWARD SLOPING ST SEGMENT DEPRESSION NOTED IN LEADS V3 AND V4 DURING STAGE [address] OF RASHEL [address]OL. HORIZONTAL [address] SEGMENT DEPRESSION NOTED IN LEADS V3, V4, AND V5 DURING IMMEDIATE RECOVERY PERIOD. CONTINUED HORIZONTAL ST SEGMENT DEPRESSION OF LEADS V3 AND V4 NOTED THROUGHOUT RECOVERY, RETURNING TO BASELINE IN MINUTE 9 OF RECOVERY PERIOD. AVERAGE FUNCTIONAL CAPCITY. Study data: Marta Rodriguez MD supervised and was readily available during the procedure. This study was interpreted by [facility]. Study status: Routine. Consent: The risks, benefits, and alternatives to the procedure were explained to the patient and informed consent was obtained. Procedure: Initial setup. A baseline ECG was recorded. Surface ECG leads and manual cuff blood pressure measurements were monitored. Heart sounds: Normal. Lung sounds: Normal. Supplemental oxygen. Oxygen, at an FIO2 of 92% was administered throughout the procedure. Treadmill exercise testing was performed using the Rashel protocol. Study completion: The patient tolerated the procedure well and was discharged from the lab. Discharge: The patient left the laboratory in stable condition. Birthdate: Patient birthdate: 1950. Sex: Gender: male. Study date: Study date: 05/09/2018. Study time: 02:00 PM. Signature Documentation: The Stress ECG portion of this study was interpreted by Marta Rodriguez MD. Electronically signed by Marta Rodriguez 05/09/2018 15:53
== END 2018-05-09 00:48 ==
PROVIDERS: Visit Provider Internal Medicine
DX: I95.89 Other hypotension (principal); R94.30 Abnormal result of cardiovascular function study, unspecified; R42 Dizziness and giddiness; I10 Essential (primary) hypertension; J44.9 Chronic obstructive pulmonary disease, unspecified; Z87.891 Personal history of nicotine dependence
CPT/HCPCS: 93017

== ENCOUNTER 2018-06-10 15:48 | Outpatient (RCR) | payer OTHER, MEDICARE, SELFPAY | END 2018-06-10 15:49 | disposition other institution (70) | LOC: PRC 15:48 | PROVIDERS: Visit Provider Family Medicine | DX: J44.9 Chronic obstructive pulmonary disease, unspecified (principal); Z51.89 Encounter for other specified aftercare | CPT/HCPCS: G0424 ==

== ENCOUNTER 2018-06-19 02:02 | Outpatient (RCR) | payer OTHER, MEDICARE, SELFPAY | END 2018-06-21 23:59 | disposition home or self-care (01) | LOC: PRC 02:02 | DX: J44.9 Chronic obstructive pulmonary disease, unspecified (principal); Z51.89 Encounter for other specified aftercare | CPT/HCPCS: G0424 ==

== ENCOUNTER 2018-06-22 04:30 | Outpatient (RCR) | payer OTHER, MEDICARE, SELFPAY | END 2018-07-22 23:59 | disposition home or self-care (01) | LOC: PRC 04:30 | DX: J44.9 Chronic obstructive pulmonary disease, unspecified (principal); Z51.89 Encounter for other specified aftercare | CPT/HCPCS: G0424 ==

== ENCOUNTER 2018-07-23 10:37 | Outpatient (RCR) | payer MEDICARE, OTHER, SELFPAY ==
--- NOTE | 2018-08-13 10:05 | PR3E_ITS ---
68 year old male who graduated Pulmonary Rehabilitation Phase 2 for COPD on 08/09/18 and decided to transition to the maintenance phase, 2 days per week. PMH: COPD, emphysema, colon cancer, migraines First day of exercise: 08/13/18: BP at rest 124/81, HR rest 76 bpm, O2 room air 90%. Patient completed 48 minutes of exercise: NuStep 12 minutes, UBE 12 minutes, treadmill 12 minutes, bike 12 minutes and free weights UBWT/LBWT 3lbs ea, 20 reps. O2 w/ exercise ranged 89-93%, HR w/ exercise ranged 103-121 bpm. ISMAEL RPB/RPE scores 11-12. BP with exercise ranged 136/78-139/78. Post exercise BP 131/80, O2 89%. Tolerated exercise regimen without any adverse signs or symptoms. No concerns at this time, will continue to progress as tolerated.
== END 2018-08-13 15:17 ==
LOC: PRC 10:37
DX: J44.9 Chronic obstructive pulmonary disease, unspecified (principal); Z51.89 Encounter for other specified aftercare
CPT/HCPCS: G0424

== ENCOUNTER 2018-08-22 09:00 | Outpatient (RCR) | payer SELFPAY | END 2018-08-22 23:59 | disposition home or self-care (01) | LOC: CR 09:00 | PROVIDERS: Visit Provider Family Medicine | DX: Z51.89 Encounter for other specified aftercare (principal) ==

== ENCOUNTER 2018-09-19 12:53 | Outpatient (RCR) | payer SELFPAY | END 2018-09-19 23:59 | disposition home or self-care (01) | LOC: CR 12:53 | PROVIDERS: Visit Provider Family Medicine | DX: Z51.89 Encounter for other specified aftercare (principal) ==

== ENCOUNTER 2018-10-17 09:00 | Outpatient (RCR) | payer SELFPAY | END 2018-10-20 23:59 | disposition home or self-care (01) | LOC: CR 09:00 | PROVIDERS: Visit Provider Family Medicine | DX: Z51.89 Encounter for other specified aftercare (principal) ==

== ENCOUNTER 2018-11-19 09:00 | Outpatient (RCR) | payer SELFPAY | END 2018-11-19 23:59 | disposition home or self-care (01) | LOC: CR 09:00 | PROVIDERS: Visit Provider Family Medicine | DX: Z51.89 Encounter for other specified aftercare (principal) ==

== ENCOUNTER 2018-12-19 13:36 | Outpatient (RCR) | payer SELFPAY | END 2018-12-20 23:59 | disposition home or self-care (01) | LOC: CR 13:36 | PROVIDERS: Visit Provider Family Medicine | DX: Z51.89 Encounter for other specified aftercare (principal) ==

== ENCOUNTER 2019-01-16 11:27 | Outpatient (RCR) | payer SELFPAY | END 2019-01-19 23:59 | disposition home or self-care (01) | LOC: CR 11:27 | PROVIDERS: Visit Provider Family Medicine | DX: Z51.89 Encounter for other specified aftercare (principal) ==

== ENCOUNTER 2019-02-18 13:29 | Outpatient (RCR) | payer SELFPAY | END 2019-02-19 23:59 | disposition home or self-care (01) | LOC: CR 13:29 | PROVIDERS: Visit Provider Family Medicine | DX: Z51.89 Encounter for other specified aftercare (principal) ==

== ENCOUNTER 2019-03-20 09:00 | Outpatient (RCR) | payer SELFPAY | END 2019-03-22 23:59 | disposition home or self-care (01) | LOC: CR 09:00 | PROVIDERS: Visit Provider Family Medicine | DX: Z51.89 Encounter for other specified aftercare (principal) ==

== ENCOUNTER 2019-04-03 09:00 | Outpatient (RCR) | payer SELFPAY | END 2019-04-21 23:59 | disposition home or self-care (01) | LOC: CR 09:00 | PROVIDERS: Visit Provider Family Medicine | DX: Z51.89 Encounter for other specified aftercare (principal) ==

== ENCOUNTER 2019-05-22 12:02 | Outpatient (RCR) | payer SELFPAY | END 2019-05-22 23:59 | disposition home or self-care (01) | LOC: CR 12:02 | PROVIDERS: Visit Provider Family Medicine | DX: Z51.89 Encounter for other specified aftercare (principal) ==

== ENCOUNTER 2019-06-17 15:16 | Outpatient (RCR) | payer SELFPAY | END 2019-06-21 23:59 | disposition home or self-care (01) | LOC: CR 15:16 | PROVIDERS: Visit Provider Family Medicine | DX: Z51.89 Encounter for other specified aftercare (principal) ==

== ENCOUNTER 2019-07-17 09:00 | Outpatient (RCR) | payer SELFPAY | END 2019-07-22 23:59 | disposition home or self-care (01) | LOC: CR 09:00 | PROVIDERS: Visit Provider Family Medicine | DX: Z51.89 Encounter for other specified aftercare (principal) ==

== ENCOUNTER 2019-08-14 09:00 | Outpatient (RCR) | payer SELFPAY | END 2019-08-22 23:59 | disposition home or self-care (01) | LOC: CR 09:00 | PROVIDERS: Visit Provider Family Medicine | DX: Z51.89 Encounter for other specified aftercare (principal) ==

== ENCOUNTER 2019-09-18 08:00 | Outpatient (RCR) | payer SELFPAY | END 2019-09-20 23:59 | disposition home or self-care (01) | LOC: CR 08:00 | PROVIDERS: Visit Provider Family Medicine | DX: Z51.89 Encounter for other specified aftercare (principal) ==

== ENCOUNTER 2019-09-30 08:00 | Outpatient (RCR) | payer SELFPAY | END 2019-10-21 23:59 | disposition home or self-care (01) | LOC: CR 08:00 | PROVIDERS: Visit Provider Family Medicine | DX: Z51.89 Encounter for other specified aftercare (principal) ==

== ENCOUNTER 2021-01-18 10:00 | Outpatient (RCR) | payer SELFPAY ==
[2020-12-21 11:02] VITALS: BP 168/74; PULSE 72
[2020-12-23 09:46] VITALS: BP 146/85; PULSE 75; O2SAT 92
[2020-12-28 09:45] VITALS: BP 146/89; PULSE 82
[2020-12-30 09:54] VITALS: BP 150/91; PULSE 74
[2021-01-04 09:44] VITALS: BP 127/79; PULSE 79
[2021-01-06 09:34] VITALS: BP 155/89; PULSE 69
[2021-01-11 09:35] VITALS: BP 165/64; PULSE 77
[2021-01-13 09:42] VITALS: BP 162/84; PULSE 72
[2021-01-18 09:57] VITALS: BP 151/81; PULSE 82
== END 2021-01-19 23:59 | disposition home or self-care (01) ==
LOC: CR 10:00
PROVIDERS: Visit Provider Family Medicine
DX: Z51.89 Encounter for other specified aftercare (principal)

== ENCOUNTER 2021-02-17 10:00 | Outpatient (RCR) | payer SELFPAY ==
[2021-01-20 00:26] VITALS: BP 151/81; PULSE 82
[2021-01-20 10:03] VITALS: BP 150/81; PULSE 75
[2021-01-27 10:12] VITALS: BP 160/89; PULSE 71
[2021-02-01 09:55] VITALS: BP 162/83; PULSE 78
[2021-02-03 10:02] VITALS: BP 153/78; PULSE 77
[2021-02-08 10:01] VITALS: BP 136/82; PULSE 72
[2021-02-10 09:58] VITALS: BP 144/85; PULSE 71
[2021-02-15 10:07] VITALS: BP 155/85; PULSE 70
[2021-02-17 09:55] VITALS: BP 136/79; PULSE 67; O2SAT 91
== END 2021-02-19 23:59 | disposition home or self-care (01) ==
LOC: CR 10:00
PROVIDERS: Visit Provider Family Medicine
DX: Z51.89 Encounter for other specified aftercare (principal)

== ENCOUNTER 2021-03-17 10:00 | Outpatient (RCR) | payer SELFPAY ==
[2021-02-20 00:12] VITALS: BP 136/79; PULSE 67
[2021-02-22 09:56] VITALS: BP 138/78; PULSE 74
[2021-03-01 10:34] VITALS: BP 143/78; PULSE 81
[2021-03-08 10:20] VITALS: BP 143/82; PULSE 68
[2021-03-10 10:07] VITALS: BP 130/79; PULSE 66
[2021-03-15 10:38] VITALS: BP 133/80; PULSE 78
[2021-03-17 10:01] VITALS: BP 120/75; PULSE 73
== END 2021-03-22 23:59 | disposition home or self-care (01) ==
LOC: CR 10:00
PROVIDERS: Visit Provider Family Medicine
DX: Z51.89 Encounter for other specified aftercare (principal); J44.9 Chronic obstructive pulmonary disease, unspecified

== ENCOUNTER 2021-04-21 10:00 | Outpatient (RCR) | payer SELFPAY ==
[2021-03-23 00:19] VITALS: BP 120/75; PULSE 73
[2021-03-24 10:21] VITALS: BP 138/79; PULSE 71
[2021-03-29 13:33] VITALS: BP 125/76; PULSE 69
[2021-03-31 09:40] VITALS: BP 131/78; PULSE 73
[2021-04-05 09:49] VITALS: BP 142/84; PULSE 66
[2021-04-07 10:00] VITALS: BP 137/82; PULSE 60
[2021-04-12 09:47] VITALS: BP 156/85; PULSE 70; O2SAT 90
[2021-04-14 10:49] VITALS: BP 153/78; PULSE 70
[2021-04-19 09:57] VITALS: BP 147/80; PULSE 64
[2021-04-21 09:44] VITALS: BP 145/77; PULSE 72; O2SAT 93
[2021-04-26 09:38] VITALS: BP 151/73; PULSE 72
== END 2021-04-21 23:59 | disposition home or self-care (01) ==
LOC: CR 10:00
PROVIDERS: Visit Provider Family Medicine
DX: Z51.89 Encounter for other specified aftercare (principal)

== ENCOUNTER 2021-05-19 10:00 | Outpatient (RCR) | payer SELFPAY ==
[2021-04-22 00:25] VITALS: BP 145/77; PULSE 72
[2021-04-28 09:47] VITALS: BP 143/80; PULSE 73
[2021-05-03 09:49] VITALS: BP 151/89; PULSE 67; O2SAT 90
[2021-05-05 10:42] VITALS: BP 166/82; PULSE 68
[2021-05-10 09:47] VITALS: BP 151/84; PULSE 66; O2SAT 92
[2021-05-12 09:43] VITALS: BP 138/78; PULSE 68; O2SAT 90
[2021-05-17 10:16] VITALS: BP 151/84; PULSE 73; O2SAT 90
[2021-05-19 09:46] VITALS: BP 131/82; PULSE 77
== END 2021-05-22 23:59 | disposition home or self-care (01) ==
LOC: CR 10:00
PROVIDERS: Visit Provider Family Medicine
DX: Z51.89 Encounter for other specified aftercare (principal); R69 Illness, unspecified

== ENCOUNTER 2021-06-21 10:00 | Outpatient (RCR) | payer SELFPAY ==
[2021-05-23 00:12] VITALS: BP 131/82; PULSE 77
[2021-05-24 10:02] VITALS: BP 144/86; PULSE 71; O2SAT 92
[2021-05-26 09:45] VITALS: BP 174/90; PULSE 79; O2SAT 90
[2021-06-02 11:09] VITALS: BP 163/94; PULSE 78; O2SAT 93
[2021-06-09 09:44] VITALS: BP 146/84; PULSE 76
[2021-06-21 09:37] VITALS: BP 152/83; PULSE 80
== END 2021-06-21 23:59 | disposition home or self-care (01) ==
LOC: CR 10:00
PROVIDERS: Visit Provider Family Medicine
DX: Z51.89 Encounter for other specified aftercare (principal); R69 Illness, unspecified

== ENCOUNTER 2021-07-19 10:00 | Outpatient (RCR) | payer SELFPAY ==
[2021-06-22 00:17] VITALS: BP 152/83; PULSE 80
[2021-06-23 10:16] VITALS: BP 144/87; PULSE 78; O2SAT 94
[2021-06-28 10:34] VITALS: BP 167/83; PULSE 75
[2021-06-30 09:39] VITALS: BP 136/81; PULSE 72; O2SAT 91
[2021-07-05 11:40] VITALS: BP 143/77; PULSE 72
[2021-07-12 09:44] VITALS: BP 129/81; PULSE 81; O2SAT 91
[2021-07-14 09:42] VITALS: BP 131/85; PULSE 79
[2021-07-19 10:43] VITALS: BP 144/80; PULSE 80
== END 2021-07-22 23:59 | disposition home or self-care (01) ==
LOC: CR 10:00
PROVIDERS: Visit Provider Family Medicine
DX: Z51.89 Encounter for other specified aftercare (principal); R69 Illness, unspecified

== ENCOUNTER 2021-07-25 15:13 | Outpatient (RCR) | payer SELFPAY ==
[2021-07-23 00:07] VITALS: BP 144/80; PULSE 80
[2021-07-26 09:46] VITALS: BP 142/86; PULSE 74; O2SAT 94
== END 2021-08-22 23:59 | disposition home or self-care (01) ==
LOC: CR 15:13
PROVIDERS: Visit Provider Family Medicine
DX: R69 Illness, unspecified (principal)

== ENCOUNTER 2021-10-13 10:00 | Outpatient (RCR) | payer SELFPAY ==
[2021-09-20 09:47] VITALS: BP 157/85; PULSE 84; O2SAT 91
[2021-09-22 09:47] VITALS: BP 139/78; PULSE 92; O2SAT 91
[2021-09-27 09:41] VITALS: BP 156/80; PULSE 79; O2SAT 90
[2021-09-29 10:06] VITALS: BP 145/85; PULSE 97
[2021-10-04 09:45] VITALS: BP 129/75; PULSE 93; O2SAT 91
[2021-10-06 09:48] VITALS: BP 125/81; PULSE 91; O2SAT 91
[2021-10-11 09:45] VITALS: BP 144/91; PULSE 84; O2SAT 92
[2021-10-13 10:06] VITALS: BP 132/78; PULSE 94; O2SAT 90
[2021-10-20 10:00] VITALS: BP 144/84; PULSE 90
== END 2021-10-20 23:59 | disposition home or self-care (01) ==
LOC: CR 10:00
PROVIDERS: Visit Provider Family Medicine
DX: R69 Illness, unspecified (principal)

== ENCOUNTER 2021-11-11 11:45 | Emergency (ER) | payer OTHER, SELFPAY ==
[2021-11-11] VITALS (13 sets, daily range): BP systolic 105–162; BP diastolic 58–89; PULSE 71–86; RESP 4–18; TEMP 36.4–36.8; O2SAT 95–99
--- NOTE | 2021-11-11 12:00 | DI.RAD_ITS ---
Exam(s) XR PORTABLE CHEST AP EXAM: XR PORTABLE CHEST AP CLINICAL HISTORY: shortness of breath, wheezing TECHNIQUE: 2D digital imaging was performed. COMPARISON: [facility] lung scan vent [facility] from 05/04/2018 FINDINGS: LUNGS: Clear. No pleural abnormality seen. HEART: Normal. MEDIASTINUM: Normal. BONES: Old right 5th rib fracture. IMPRESSION: No acute pulmonary findings. DATA REPOSITORY: RADIATION DOSE DELIVERED:
[2021-11-11] MEDS: predniSONE 20 MG TAB 40 MG PO (12:29)
[2021-11-11 12:36] LABS: Source Nasal/Nares
[2021-11-11 12:37] LABS: Abs Immature Grans 0.03 10^3/uL (0.0-0.06); Absolute Basophil Count 0.05 10^3/uL (0.0-0.2); Absolute Eosinophil Count 0.17 10^3/uL (0.0-0.7); Absolute Lymphocyte Count 1.91 10^3/uL (1.2-3.4); Absolute Monocyte Count 0.83 10^3/uL (0.1-0.8); Absolute Neutrophil Count 5.76 10^3/uL (1.2-6.7); Basophils % 0.6; Eosinophils % 1.9; HCT 43.5 % (40.0-50.0); HGB 14.2 g/dL (13.5-17.5); Immature Grans % 0.3; Lymphocytes % 21.8; MCH 30.4 pg (27.0-33.0); MCHC 32.6 % (32.0-36.0); MCV 93.1 fL (80-95); MPV 10.4 fL (8.0-11.0); Monocytes % 9.5; Neutrophils % 65.9; Platelet Count 283 10^3/uL (130-400); RBC 4.67 10^6/uL (4.36-5.78); RDW 13.2 % (11.8-14.1); RDW-SD 44.8 fL; WBC 8.75 10^3/uL (4.4-10.8)
[2021-11-11] MEDS: Albuterol/Ipratropium 3 ML UPD VIAL UPD (12:46)
[2021-11-11 12:57] LABS: ALT 42 U/L (16-63); AST 25 U/L (15-37); Albumin 3.8 g/dL (3.4-5.0); Alkaline Phosphatase 75 U/L (46-116); Anion Gap 6.1 mmol/L (3-11); BUN 30 mg/dL (7-18); Bilirubin, Total 0.5 mg/dL (0.2-1.0); CO2 29.9 mmol/L (21.0-32.0); CREATININE 1.5 mg/dL (0.70-1.30); Calcium 9.1 mg/dL (8.5-10.1); Chloride 102 mmol/L (98-107); Estimated GFR 46.13 (mL/min/1.73m2); Glucose 103 mg/dL (74-106); NT-proBNP 295 pg/mL (<300); Potassium 3.8 mmol/L (3.5-5.1); Sodium 138 mmol/L (136-145); Total Protein 7.3 g/dL (6.4-8.2); Troponin I < 50 ng/L (<or=60)
[2021-11-11 13:07] LABS: D-Dimer 990 ng/mlFEU (<500)
--- NOTE | 2021-11-11 13:20 | ED.GENADUL_ITS ---
Discharge Plan Disposition Patient Disposition: HOME Condition: Stable Discharge Details Clinical Impression: COPD (chronic obstructive pulmonary disease), Jaw pain Primary Care Provider: Beena Lovett ED Provider: Jeri Suarez Home Meds and New Rx's Prescriptions: New prednisone 20 mg tablet 40 mg PO DAILY Qty: 10 0RF prednisone 20 mg tablet 40 mg PO DAILY Qty: 8 0RF Continued atorvastatin 10 mg Tablet 10 mg PO HS 0RF Stiolto Respimat 2.5-2.5 mcg/actuation Mist 1 puff Inhalation BID 0RF ergocalciferol (vitamin D2) 50,000 unit Capsule 1 cap PO DIRECTED 0RF Rx Instructions: weekly multivitamin with minerals Tablet 1 tab PO QAM 0RF lisinopril 10 mg Tablet 10 mg PO DAILY 0RF albuterol sulfate 90 mcg/actuation Aerosol Powdr Breath Activated 2 inh INHALATION Q4H PRN0RF hydrochlorothiazide 25 mg Tablet 25 mg PO DAILY 0RF Discharge Instructions Instructions: COPD (Chronic Obstructive Pulmonary Disease) (ED) Additional Instructions: Take prednisone as prescribed Take albuterol 2 puffs every 4-6 hours Tylenol 500 mg every 4-6 hours as needed for pain Please follow-up with your PCP in 24 to 48 hours for reassessment and return earlier should you have new or worsening complaints soft foods And regular liquids while your jaw pain persist follow-up regarding your nodules seen on CT imaging with pcp next week Discharge Data Discharge Date/Time-TO BE ENTERED AT DEPARTURE: 11/11/21 14:44 Medical Decision Making I suspect patient has jaw pain from the endoscopy procedure, there is no evidence of intraoral trauma or abscess He is instructed to take Tylenol as needed for discomfort He is placed on prednisone and albuterol for likely COPD exacerbation, CTA does not show evidence of pulmonary embolism per radiology interpretation in my review No hypoxia, oxygen 96% on room air, hemodynamically stable He will need to follow-up regarding his pulmonary nodules with his primary care physician, this relates to patient He has a negative troponin with 4 days of constant symptoms and remainder of his labs are negative for acute abnormality Is discharged home in stable condition with stable vital feeling symptomatically improved after DuoNeb administration, declines any additional intervention at this time Recheck in 24 to 48 hours recommended Medical Records Medical records reviewed: Yes I reviewed the patient's medical records. Lab Data Lab results reviewed: Yes I reviewed the patient's lab results. HPI General Date/Time Provider Initiated Documentation: 11/11/21 12:01 . HPI Narrative: This 71-year-old gentleman with history of KAY, hypertension, COPD presents with shortness of breath and wheezing with left jaw pain after endoscopy which was performed at the [place] on 09 November. He denies any chest pain or abdominal pain. Denies any fever or chills. States he has a history of COPD but definitely. He states he is slightly dyspneic with exertion. He denies any hemoptysis. He is COVID vaccinated. He denies fever or chills. He states he has been coughing. He denies any known exacerbating or alleviating factors. He denies any calf pain or swelling or prior history of PE or DVT in the past. Related Data Home Medications Medication Instructions Recorded Confirmed atorvastatin 10 mg tablet 10 mg PO HS 05/03/18 11/11/21 ergocalciferol (vitamin D2) 1,250 1 cap PO DIRECTED 05/03/18 11/11/21 mcg (50,000 unit) capsule multivitamin with minerals 1 tab PO QAM 05/03/18 11/11/21 tiotropium 2.5 mcg-olodaterol 2.5 1 puff INHALATION BID 05/03/18 11/11/21 mcg/actuation mist for inhalation (Stiolto Respimat) albuterol sulfate 90 mcg/actuation 2 inh INHALATION Q4H PRN 12/30/20 11/11/21 breath activated powder inhaler lisinopril 10 mg tablet 10 mg PO DAILY 12/30/20 11/11/21 hydrochlorothiazide 25 mg tablet 25 mg PO DAILY 06/09/21 11/11/21 prednisone 20 mg tablet 40 mg PO DAILY #10 tab 11/11/21 prednisone 20 mg tablet 40 mg PO DAILY #8 tab 11/13/21 Previous Rx's Medication Instructions Recorded prednisone 20 mg tablet 40 mg PO DAILY #10 tab 11/11/21 prednisone 20 mg tablet 40 mg PO DAILY #8 tab 11/13/21 Allergies Allergy/AdvReac Type Severity Reaction Status Date / Time No Known Allergies Allergy Unverified 11/11/21 12:03 General Stated Complaint: [facility]Medical STEFFEN: 3 Review of Systems All systems reviewed & are unremarkable except as noted in HPI and below PFSH All Active Problems (Updated 11/11/21 @ 14:30 by RICK Stewart) Jaw pain (Acute) KAY (acute kidney injury) (Acute) DVT prophylaxis (Acute) Hypertension (Chronic) COPD (chronic obstructive pulmonary disease) (Chronic) Hypotension (Acute) Social History Smoking/Tobacco Use Status: Former Tobacco Use Smoking risk assessment performed?: Yes Alcohol Intake: never Drug use: Never Substance use type: does not use Do you feel safe in your relationship?: Yes Exam Const General: cooperative, comfortable and no acute distress [facility] Head images: 1. 2. Tenderness to palpation, no TMJ tenderness, no evidence of abscess Eyes Pupils: PERRL Neck Other: no lymphadenopathy, no carotid bruit Resp Other: Wheezing noted, no respiratory distress Cardio Rate: regular rate Rhythm: regular rhythm Other: No murmur GI Inspection: normal to inspection Other: Nontender abdominal exam Skin General skin exam: no rashes or lesions noted Neuro General: patient alert and patient oriented x3 Extrem Other: Distal pulses intact, no calf swelling or tenderness Course Vital Signs Vital signs: Vital Signs Temperature 36.4 C L 11/11/21 11:52 Pulse 86 11/11/21 11:52 Respiratory Rate 18 11/11/21 11:52 Blood Pressure 162/89 H 11/11/21 11:52 Pulse Oximetry 95 11/11/21 11:52 Temperature 36.4 C L 11/11/21 11:52 Temperature Source Temporal Artery Scan 11/11/21 11:52 Pulse 86 11/11/21 11:52 Respiratory Rate 18 11/11/21 11:56 Respiratory Effort Non-Labored 11/11/21 11:56 Respiratory Depth Normal 11/11/21 11:56 Respiratory Pattern Normal 11/11/21 11:56 Blood Pressure 162/89 H 11/11/21 11:52 Blood Pressure Position Sitting 11/11/21 11:52 Pulse Oximetry 95 11/11/21 11:52 Oxygen Delivery Method Room Air 11/11/21 11:52 Oxygen Flow Rate 0 11/11/21 11:52 Pain Level 0 11/11/21 11:52 Lab/Test Results Lab/Test Results: Laboratory Tests Range/Units 11/11/21 11/11/21 11/11/21 12:26 12:26 12:26 WBC (4.4-10.8) 10^3/uL 8.75 RBC (4.36-5.78) 10^6/uL 4.67 Hgb (13.5-17.5) g/dL 14.2 Hct (40.0-50.0) % 43.5 MCV (80-95) fL 93.1 MCH (27.0-33.0) pg 30.4 MCHC (32.0-36.0) % 32.6 RDW (11.8-14.1) % 13.2 Plt Count (130-400) 10^3/uL 283 MPV (8.0-11.0) fL 10.4 Immature Gran % 0.3 Neutrophils % 65.9 Lymphocytes % 21.8 Monocytes % 9.5 Eosinophils % 1.9 Basophils % 0.6 Nucleated RBC % (0.0-0.3) % 0.0 Absolute Neutrophils (1.2-6.7) 10^3/uL 5.76 Absolute Lymphocytes (1.2-3.4) 10^3/uL 1.91 Absolute Monocytes (0.1-0.8) 10^3/uL 0.83 H Absolute Eosinophils (0.0-0.7) 10^3/uL 0.17 Absolute Basophils (0.0-0.2) 10^3/uL 0.05 D-Dimer (<500) ng/mlFEU 990 H Sodium (136-145) mmol/L 138 Potassium (3.5-5.1) mmol/L 3.8 Chloride (98-107) mmol/L 102 Carbon Dioxide (21.0-32.0) mmol/L 29.9 Anion Gap (3-11) mmol/L 6.1 BUN (7-18) mg/dL 30 H Creatinine (0.70-1.30) mg/dL 1.5 H Estimated GFR/1.73 m2 (mL/min/1.73m2) 46.13 Glucose (74-106) mg/dL 103 Calcium (8.5-10.1) mg/dL 9.1 Total Bilirubin (0.2-1.0) mg/dL 0.5 AST (15-37) U/L 25 ALT (16-63) U/L 42 Alkaline Phosphatase (46-116) U/L 75 Troponin I (<or=60) ng/L < 50 NT-Pro-B Natriuret Pep (<300) pg/mL 295 Total Protein (6.4-8.2) g/dL 7.3 Albumin (3.4-5.0) g/dL 3.8 COVID-19 Source Range/Units 11/11/21 12:28 WBC (4.4-10.8) 10^3/uL RBC (4.36-5.78) 10^6/uL Hgb (13.5-17.5) g/dL Hct (40.0-50.0) % MCV (80-95) fL MCH (27.0-33.0) pg MCHC (32.0-36.0) % RDW (11.8-14.1) % Plt Count (130-400) 10^3/uL MPV (8.0-11.0) fL Immature Gran % Neutrophils % Lymphocytes % Monocytes % Eosinophils % Basophils % Nucleated RBC % (0.0-0.3) % Absolute Neutrophils (1.2-6.7) 10^3/uL Absolute Lymphocytes (1.2-3.4) 10^3/uL Absolute Monocytes (0.1-0.8) 10^3/uL Absolute Eosinophils (0.0-0.7) 10^3/uL Absolute Basophils (0.0-0.2) 10^3/uL D-Dimer (<500) ng/mlFEU Sodium (136-145) mmol/L Potassium (3.5-5.1) mmol/L Chloride (98-107) mmol/L Carbon Dioxide (21.0-32.0) mmol/L Anion Gap (3-11) mmol/L BUN (7-18) mg/dL Creatinine (0.70-1.30) mg/dL Estimated GFR/1.73 m2 (mL/min/1.73m2) Glucose (74-106) mg/dL Calcium (8.5-10.1) mg/dL Total Bilirubin (0.2-1.0) mg/dL AST (15-37) U/L ALT (16-63) U/L Alkaline Phosphatase (46-116) U/L Troponin I (<or=60) ng/L NT-Pro-B Natriuret Pep (<300) pg/mL Total Protein (6.4-8.2) g/dL Albumin (3.4-5.0) g/dL COVID-19 Source Nasal/Nares
[2021-11-11 13:49] LABS: COVID-19 PCR Negative (Negative)
[2021-11-11] MEDS: Omnipaque 350 MG/ML 100 ML BTL IJ (13:56)
--- NOTE | 2021-11-11 13:57 | DI.CT_ITS ---
Exam(s) CT CHEST PE CTA EXAM: CT CHEST PE CTA CLINICAL HISTORY: s/p endoscopy, shortness of breath, elevated dimer. TECHNIQUE: Imaging Protocol: Axial CT angiography was performed with multi-slice acquisition and mu lti-planar reconstructions as well as axial, coronal and sagittal MIP reconstructions. CONTRAST MATERIAL: Intravenous: Omnipaque 350 Contrast volume:100 ml COMPARISON: CR XR CHEST 2V PA LATERAL from 05/03/2018 NM NM lung scan vent perf grp from 05/04/2018 CR XR PORTABLE CHEST AP from 11/11/2021 FINDINGS: Pulmonary Arteries: No evidence of filling defect to suggest pulmonary emboli. Tracheobronchial tree: Patent where visualized. Mediastinum and Felicitas: No dominant adenopathy or fluid collection. Pulmonary parenchyma: No consolidation. Emphysematous changes, moderate to severe in the upper lobes . Moderate in the lower lobes. Circumscribed 8 millimeter nodule posterior left lower lobe, subpleu ral. 5 millimeter nodule right lower lobe. Few other tiny nodules are seen. Pleura: No effusion or pneumothorax. Heart: The heart is not dilated. coronary artery calcifications are seen. Aorta: Thoracic aorta non-dilated. No aneurysm. No dissection. Mild atherosclerotic changes. Upper abdomen: Liver cysts. Cyst upper pole right kidney. Bones: Old bilateral rib fractures. Mild compression fractures of T2 and T3 mild compression superio r endplate of T12. Degenerative changes greater in the lower thoracic spine. IMPRESSION: No evidence of pulmonary embolism. 8 millimeter left lower lobe nodule. For a high risk patient, stable follow-up CT is recommended in 3 months. For low risk patient, 6 months. RADIATION DOSE DELIVERED: 426.49mGy.cm Total DLP DATA REPOSITORY: All CT scans at this facility are submitted to the National Radiology Data Registry (NRDR) Dose Index Registry (DIR) with the [employer] (ACR). RADIATION OPTIMIZATION: All CT scans at this facility use at least one of these dose optimization te chniques: automated exposure control; mA and/or kV adjustment per patient size (includes targeted exa ms where dose is matched to clinical indication); or iterative reconstruction.
[2021-11-11] MEDS: Inhaler, Assist Device 1 EACH MC (14:26)
[2021-11-11] MEDS: Albuterol HFA 8 GM 60 PUFF INH IH (14:26)
== END 2021-11-11 14:44 | disposition home or self-care (01) ==
PROVIDERS: Emergency Provider Physician Assistant
DX: J44.9 Chronic obstructive pulmonary disease, unspecified (principal); R68.84 Jaw pain; R06.02 Shortness of breath; R06.2 Wheezing
CPT/HCPCS: 36415; 71275; 80053; 87635; 94640; 99284; 99285; 71045; 83880; 84484; 85025; 85379; J3490; J7512; J7620

== ENCOUNTER 2021-11-17 10:00 | Outpatient (RCR) | payer SELFPAY ==
[2021-10-21 00:07] VITALS: BP 144/84; PULSE 90
[2021-10-27 09:48] VITALS: BP 134/80; PULSE 86
[2021-10-27 09:52] VITALS: BP 134/80; PULSE 86; O2SAT 94
[2021-11-01 11:10] VITALS: BP 136/78; PULSE 72
[2021-11-03 10:28] VITALS: BP 141/88; PULSE 87; O2SAT 91
[2021-11-08 10:06] VITALS: BP 114/73; PULSE 93; O2SAT 94
[2021-11-10 10:16] VITALS: BP 135/80; PULSE 90; O2SAT 93
[2021-11-15 10:05] VITALS: BP 136/86; PULSE 86; O2SAT 93
[2021-11-17 09:54] VITALS: BP 135/83; PULSE 82; O2SAT 93
== END 2021-11-19 23:59 | disposition home or self-care (01) ==
LOC: CR 10:00
PROVIDERS: Visit Provider Internal Medicine Cardiovascular Disease
DX: R69 Illness, unspecified (principal)

== ENCOUNTER 2021-12-20 09:45 | Outpatient (RCR) | payer SELFPAY ==
[2021-11-20 00:04] VITALS: BP 135/83; PULSE 82
[2021-11-22 10:05] VITALS: BP 148/83; PULSE 83
[2021-11-24 09:55] VITALS: BP 146/83; PULSE 94; O2SAT 91
[2021-12-01 11:26] VITALS: BP 120/73; PULSE 79; O2SAT 91
[2021-12-06 10:15] VITALS: BP 136/85; PULSE 81; O2SAT 94
[2021-12-13 10:21] VITALS: BP 133/84; PULSE 82
[2021-12-15 09:39] VITALS: BP 140/80; PULSE 82
[2021-12-20 09:44] VITALS: BP 146/73; PULSE 75; O2SAT 89
== END 2021-12-20 23:59 | disposition home or self-care (01) ==
LOC: CR 09:45
PROVIDERS: Visit Provider Internal Medicine Cardiovascular Disease
DX: R69 Illness, unspecified (principal)

== ENCOUNTER 2022-01-19 10:00 | Outpatient (RCR) | payer SELFPAY ==
[2021-12-21 00:03] VITALS: BP 146/73; PULSE 75
[2021-12-22 10:17] VITALS: BP 138/80; PULSE 81; O2SAT 90
[2021-12-27 10:22] VITALS: BP 136/69; PULSE 85; O2SAT 91
[2021-12-29 10:04] VITALS: BP 133/81; PULSE 83
[2022-01-03 10:20] VITALS: BP 108/67; PULSE 86; O2SAT 90
[2022-01-05 10:10] VITALS: BP 111/73; PULSE 80
[2022-01-10 10:41] VITALS: BP 139/74; PULSE 80; O2SAT 94
[2022-01-12 09:43] VITALS: BP 124/72; PULSE 81
[2022-01-17 09:50] VITALS: BP 107/72; PULSE 98; O2SAT 90
[2022-01-19 09:58] VITALS: BP 136/74; PULSE 89; O2SAT 91
== END 2022-01-19 23:59 | disposition home or self-care (01) ==
LOC: CR 10:00
PROVIDERS: Visit Provider Internal Medicine Cardiovascular Disease
DX: R69 Illness, unspecified (principal)

== ENCOUNTER 2022-01-31 09:12 | Outpatient (RCR) | payer SELFPAY ==
[2022-01-24 10:04] VITALS: BP 132/80; PULSE 75; O2SAT 92
[2022-01-26 10:56] VITALS: BP 121/72; PULSE 85; O2SAT 89
== END 2022-02-19 23:59 | disposition home or self-care (01) ==
LOC: CR 09:12
PROVIDERS: Visit Provider Internal Medicine Cardiovascular Disease
DX: R69 Illness, unspecified (principal)

== ENCOUNTER → 2022-03-08 01:08 | Outpatient (CLI) | payer OTHER, SELFPAY ==
--- NOTE | 2022-03-08 09:05 | DI.MRI_ITS ---
Exam(s) MR UPPER JOINT LT WO EXAM: MR UPPER JOINT LT WO CLINICAL HISTORY: GA AUTH# [id number] PAIN LT SHOULDER [id number]. TECHNIQUE: Multiplanar multisequence MRI was performed. COMPARISON: DX Shoulder L from 02/13/2022 FINDINGS: MR examination of the shoulder was performed according to the usual protocol. There is a small shoulder joint effusion. There is marked articular cartilage thinning of the glenoi d and humeral head and there are marginal osteophytes of the glenoid. The glenoid labrum is markedly effaced with no discrete tear. The humeral head abuts the inferior surface of the acromion. There are moderate hypertrophic degenerative changes at the AC joint. Biceps tendon and anchor: Biceps tendon is mildly displaced medially from the bicipital groove. Crissy ps anchor is poorly visualized and I am uncertain whether the long head of the biceps is attached to the biceps anchor. There is abnormal signal in the proximal portion of the long head of the biceps c onsistent with tendinosis. Rotator cuff: Subscapularis muscle appears small consistent with atrophy greater than 50 percent. No gross subscapularis tendon tear. Supraspinatus muscle shows greater than 50 percent atrophy. Supraspinatus tendon is displaced anteri geraldo and appears torn, probably full-thickness tear with retraction, no significant supraspinatus ten don visible over the superior convexity of the humeral head. Infra spinatus muscle is greater than 50 percent atrophied, infraspinatus is displaced inferiorly and presumably torn and retracted, the distal end of the tendon is not well visualized. Teres minor lalito ws greater than 50 percent muscle atrophy as well. IMPRESSION: Severe degenerative change and massive rotator cuff tear with humeral head abutting inferior surface of the acromion. Greater than 50 percent muscle atrophy of the rotator cuff musculature, Goutallier classification gra de 4. DATA REPOSITORY:
== END ==
PROVIDERS: Visit Provider Specialist/Technologist Athletic Trainer
DX: M25.512 Pain in left shoulder (principal); M25.412 Effusion, left shoulder; M75.22 Bicipital tendinitis, left shoulder; M75.102 Unspecified rotator cuff tear or rupture of left shoulder, not specified as traumatic; M19.012 Primary osteoarthritis, left shoulder; M62.512 Muscle wasting and atrophy, not elsewhere classified, left shoulder
CPT/HCPCS: 73221

== ENCOUNTER 2022-05-11 10:19 | Emergency (ER) | payer OTHER, SELFPAY ==
[2022-05-11] VITALS (12 sets, daily range): BP systolic 97–113; BP diastolic 56–70; PULSE 81–103; RESP 17–29; TEMP 36.9; O2SAT 89–93
--- NOTE | 2022-05-11 10:15 | RT.EKG_ITS ---
APPROVED REPORT Exam: Resting ECG Reason for Exam: sob, hypotension Patient Location: E HR:99 bpm ECG Measurements Heart Rate 99 AXIS VA 153 P 72 QRSd 99 QRS 9 QT 338 T 75 QTc 435 Conclusion Sinus rhythm...normal P axis, V-rate 60- 99 Lateral infarct, old...Q>40mS, flat T, V5 V6 I aVL
[2022-05-11] MEDS: Normal Saline 1,000 ML 1000 ML IV (10:42)
[2022-05-11 10:43] LABS: Source Nasal/Nares
--- NOTE | 2022-05-11 10:49 | ED.GENADUL_ITS ---
Discharge Plan Disposition Patient Disposition: HOME Condition: Improving Discharge Details Clinical Impression: Hypotension Primary Care Provider: Beena Lovett ED Provider: Jimbo Adam Home Meds and New Rx's Prescriptions: Continued atorvastatin 10 mg Tablet 10 mg PO HS Stiolto Respimat 2.5-2.5 mcg/actuation Mist 1 puff Inhalation BID ergocalciferol (vitamin D2) 50,000 unit Capsule 1 cap PO DIRECTED Rx Instructions: weekly multivitamin with minerals Tablet 1 tab PO QAM lisinopril 10 mg Tablet 10 mg PO DAILY albuterol sulfate 90 mcg/actuation Aerosol Powdr Breath Activated 2 inh INHALATION Q4H PRN hydrochlorothiazide 25 mg Tablet 25 mg PO DAILY prednisone 20 mg tablet 40 mg PO DAILY Qty: 10 0RF prednisone 20 mg tablet 40 mg PO DAILY Qty: 8 0RF Discharge Instructions Additional Instructions: Work-up in the ER does not reveal any obvious emergent process. You report feeling at baseline and have responded well to IV fluid. Please watch for new or worsening symptoms and return to the ER for any concerns. Please contact your primary care provider to discuss your ER visit need for outpatient reevaluation. If your blood pressure remains low further evaluation and/or change of medication may be indicated. I have also placed you on the pulmonary list to help expedite outpatient primary care follow-up for further work-up of your CT imaging. Medical Decision Making This is a 72-year-old gentleman with a past medical history of hypertension, COPD, KAY, presenting to the ER having been at rehab and felt as though he may briefly passed out, blood pressure was noted to be low, O2 sats were in the high 80s. Patient arrives to the ER and feels at baseline. Clinically he appears well, nontoxic, mentating without difficulty. Minimally hypotensive. Plan is to initiate cardiac work-up provide IV fluids and observe. Laboratory values reveal minimal nonspecific leukocytosis of 11.41. D-dimer is elevated at 1130, will pursue CT imaging. Electrolytes unremarkable. BUN 42 with a creatinine of 1.7, GFR of 42.30 which is slightly below his baseline. He is receiving 1 L IV fluid. Magnesium 1.8 troponin less than 50 BNP 87 urinalysis unremarkable, COVID-negative. Chest x-ray unremarkable Awaiting CTA. Patient remains asymptomatic. Blood pressure has responded well to IV hydration. O2 sat 92% on room air. When reviewing historical vital signs he appears to be at or near his baseline. Patient was ambulatory without difficulty. He is agreeable to awaiting a delta troponin CTA reveals no evidence of PE. Slight interval increase in pulmonary interstitial markings. Inferior hilum with question of bronchial wall thickening versus developing mass. Patient placed on the pulmonary list to help expedite outpatient follow-up. Delta troponin remains less than 50. Patient was made aware of his work-up. He has no additional questions or concerns and is comfortable discharge. Reports feeling at his baseline. No evidence of obvious infectious process. Denies any chest pain whatsoever. Standard discharge and return precautions were provided. Patient understands, is agreeable to this plan, and has no additional questions or concerns upon discharge. This documentation was generated using [employer] system, please disregard any oddities of phrase or misspellings. Medical Records Medical records reviewed: Yes I reviewed the patient's medical records. Imaging Data Radiologic Study: Attestation: I personally reviewed and interpreted this imaging study as follows: Imaging: X-Ray Radiologist's impression: Exam(s) XR PORTABLE CHEST AP EXAM: XR PORTABLE CHEST AP CLINICAL HISTORY: SOB TECHNIQUE: COMPARISON: CT LDCT LUNG CANCER SCREENING 1,3 OR 6 MONTH FOLLOW UP from 10/18/2021 CR XR PORTABLE CHEST AP from 11/11/2021 FINDINGS: Heart is not enlarged. There are changes of COPD and mild changes of pulmonary scarring. No focal consolidation. No pleural effusion on this frontal film. IMPRESSION: No evidence of acute process. Radiologic Study #2: Attestation: I personally reviewed and interpreted this imaging study as follows: Imaging: CT Scan Radiologist's impression: Exam(s) CT CHEST PE CTA EXAM: CT CHEST PE CTA CLINICAL HISTORY: sob,elevated dimer. TECHNIQUE: Imaging Protocol: Axial CT angiography was performed with multi- slice acquisition and multi-planar and/or 3D reconstructions. CONTRAST MATERIAL: Intravenous: Omnipaque 350 Contrast volume:structured data in ml COMPARISON: CT CT CHEST PE CTA from 11/11/2021 a Jimbo sherwood duct abdomen: Comes FINDINGS: CT angiography of the chest was performed with intravenous infusion of 100 cc of Omnipaque 350. There are severe pulmonary emphysematous changes.. No pleural effusion. There is mildly increased prominence of pulmonary interstitial markings in comparison with prior examination of November 11. This is a subtle finding but could represent viral or other diffuse infectious process. No focal consolidation amer[place] ntified. A 10-11 millimeter in diameter left lower lobe peripheral pulmonary nodule is again seen, this may have increased minimally since prior examination of November 11, this was reported previously at 8 millimeters mean diameter but measurement of the nodule on the prior examination performed today suggests mean diameter about 10 millimeters. 5 millimeter right lower lobe nodule is unchanged from prior study. Note is made of narrowing of left lower lobe bronchi at the inferior left hilum with normal caliber bronchi more distally, this finding could reflect inflammation with bronchial wall thickening or secretions, however possibility of neoplastic disease is not excluded and this finding was not present on prior CT of November 11 . No evidence of pulmonary embolic disease. Thoracic aorta is of normal diameter, no thoracic aortic aneurysm or dissection, major branch vessels appear intact. No mediastinal or hilar adenopathy. Images obtained through the upper abdomen show hepatic and right renal cysts as noted on prior examinations, otherwise unremarkable appearance of the visualized portions of the liver, spleen, pancreas, adrenals, and kidneys. IMPRESSION: Slight interval increase in pulmonary interstitial markings, consider diffuse infectious process. Interval change in appearance of inferior left hilum with question bronchial wall thickening versus developing mass. Appropriate follow-up studies requested. No evidence of pulmonary embolic disease. Lab Data Lab results reviewed: Yes I reviewed the patient's lab results. Labs: Laboratory Tests Range/Units 05/11/22 05/11/22 05/11/22 10:30 10:30 10:30 WBC (4.4-10.8) 10^3/uL RBC (4.36-5.78) 10^6/uL Hgb (13.5-17.5) g/dL Hct (40.0-50.0) % MCV (80-95) fL MCH (27.0-33.0) pg MCHC (32.0-36.0) % RDW (11.8-14.1) % Plt Count (130-400) 10^3/uL MPV (8.0-11.0) fL Immature Gran % Neutrophils % Lymphocytes % Monocytes % Eosinophils % Basophils % Nucleated RBC % (0.0-0.3) % Absolute Neutrophils (1.2-6.7) 10^3/uL Absolute Lymphocytes (1.2-3.4) 10^3/uL Absolute Monocytes (0.1-0.8) 10^3/uL Absolute Eosinophils (0.0-0.7) 10^3/uL Absolute Basophils (0.0-0.2) 10^3/uL PT (9.3-11.0) sec 9.5 INR (0.9-1.1) 0.9 APTT (21.0-27.5) sec 21.2 D-Dimer (<500) ng/mlFEU 1130 H Sodium (136-145) mmol/L 141 Potassium (3.5-5.1) mmol/L 4.0 Chloride (98-107) mmol/L 103 Carbon Dioxide (21.0-32.0) mmol/L 29.2 Anion Gap (3-11) mmol/L 8.8 BUN (7-18) mg/dL 42 H Creatinine (0.70-1.30) mg/dL 1.7 H Est GFR (CKD-EPI 2020) (mL/min/1.73m2) 42.30 Glucose (74-106) mg/dL 124 H Calcium (8.5-10.1) mg/dL 9.5 Magnesium (1.8-2.4) mg/dL 1.8 Total Bilirubin (0.2-1.0) mg/dL 0.4 AST (15-37) U/L 23 ALT (16-63) U/L 40 Alkaline Phosphatase (46-116) U/L 88 Troponin I (<or=60) ng/L < 50 NT-Pro-B Natriuret Pep Cancelled 87 Total Protein (6.4-8.2) g/dL 8.0 Albumin (3.4-5.0) g/dL 3.9 Urine Color (Yellow) Urine Clarity (Clear) Urine pH (5-8) Ur Specific [place] (1.005-1.025) Urine Protein (Negative) mg/dL Urine Ketones (Negative) mg/dL Urine Blood (Negative) Urine Nitrite (Negative) Urine Bilirubin (Negative) Urine Urobilinogen (Up TO 0.2) EU/dL Ur Leukocyte Esterase (Negative) Urine Glucose (Negative) mg/dL COVID-19 Source SARS-CoV-2 (PCR) (Negative) Range/Units 05/11/22 05/11/22 05/11/22 10:30 10:38 11:15 WBC (4.4-10.8) 10^3/uL 11.41 H RBC (4.36-5.78) 10^6/uL 4.87 Hgb (13.5-17.5) g/dL 14.7 Hct (40.0-50.0) % 45.4 MCV (80-95) fL 93 MCH (27.0-33.0) pg 30.2 MCHC (32.0-36.0) % 32.4 RDW (11.8-14.1) % 13.2 Plt Count (130-400) 10^3/uL 330 MPV (8.0-11.0) fL 10.4 Immature Gran % 0.4 Neutrophils % 75.3 Lymphocytes % 13.0 Monocytes % 8.6 Eosinophils % 2.1 Basophils % 0.6 Nucleated RBC % (0.0-0.3) % 0.0 Absolute Neutrophils (1.2-6.7) 10^3/uL 8.59 H Absolute Lymphocytes (1.2-3.4) 10^3/uL 1.48 Absolute Monocytes (0.1-0.8) 10^3/uL 0.98 H Absolute Eosinophils (0.0-0.7) 10^3/uL 0.24 Absolute Basophils (0.0-0.2) 10^3/uL 0.07 PT (9.3-11.0) sec INR (0.9-1.1) APTT (21.0-27.5) sec D-Dimer (<500) ng/mlFEU Sodium (136-145) mmol/L Potassium (3.5-5.1) mmol/L Chloride (98-107) mmol/L Carbon Dioxide (21.0-32.0) mmol/L Anion Gap (3-11) mmol/L BUN (7-18) mg/dL Creatinine (0.70-1.30) mg/dL Est GFR (CKD-EPI 2020) (mL/min/1.73m2) Glucose (74-106) mg/dL Calcium (8.5-10.1) mg/dL Magnesium (1.8-2.4) mg/dL Total Bilirubin (0.2-1.0) mg/dL AST (15-37) U/L ALT (16-63) U/L Alkaline Phosphatase (46-116) U/L Troponin I (<or=60) ng/L NT-Pro-B Natriuret Pep Total Protein (6.4-8.2) g/dL Albumin (3.4-5.0) g/dL Urine Color (Yellow) Yellow Urine Clarity (Clear) Clear Urine pH (5-8) 6.5 Ur Specific [place] (1.005-1.025) 1.025 Urine Protein (Negative) mg/dL Negative Urine Ketones (Negative) mg/dL Negative Urine Blood (Negative) Negative Urine Nitrite (Negative) Negative Urine Bilirubin (Negative) Negative Urine Urobilinogen (Up TO 0.2) EU/dL 0.2 Ur Leukocyte Esterase (Negative) Negative Urine Glucose (Negative) mg/dL Negative COVID-19 Source Nasal/Nares SARS-CoV-2 (PCR) (Negative) Negative Range/Units 05/11/22 13:30 WBC (4.4-10.8) 10^3/uL RBC (4.36-5.78) 10^6/uL Hgb (13.5-17.5) g/dL Hct (40.0-50.0) % MCV (80-95) fL MCH (27.0-33.0) pg MCHC (32.0-36.0) % RDW (11.8-14.1) % Plt Count (130-400) 10^3/uL MPV (8.0-11.0) fL Immature Gran % Neutrophils % Lymphocytes % Monocytes % Eosinophils % Basophils % Nucleated RBC % (0.0-0.3) % Absolute Neutrophils (1.2-6.7) 10^3/uL Absolute Lymphocytes (1.2-3.4) 10^3/uL Absolute Monocytes (0.1-0.8) 10^3/uL Absolute Eosinophils (0.0-0.7) 10^3/uL Absolute Basophils (0.0-0.2) 10^3/uL PT (9.3-11.0) sec INR (0.9-1.1) APTT (21.0-27.5) sec D-Dimer (<500) ng/mlFEU Sodium (136-145) mmol/L Potassium (3.5-5.1) mmol/L Chloride (98-107) mmol/L Carbon Dioxide (21.0-32.0) mmol/L Anion Gap (3-11) mmol/L BUN (7-18) mg/dL Creatinine (0.70-1.30) mg/dL Est GFR (CKD-EPI 2020) (mL/min/1.73m2) Glucose (74-106) mg/dL Calcium (8.5-10.1) mg/dL Magnesium (1.8-2.4) mg/dL Total Bilirubin (0.2-1.0) mg/dL AST (15-37) U/L ALT (16-63) U/L Alkaline Phosphatase (46-116) U/L Troponin I (<or=60) ng/L < 50 NT-Pro-B Natriuret Pep Total Protein (6.4-8.2) g/dL Albumin (3.4-5.0) g/dL Urine Color (Yellow) Urine Clarity (Clear) Urine pH (5-8) Ur Specific [place] (1.005-1.025) Urine Protein (Negative) mg/dL Urine Ketones (Negative) mg/dL Urine Blood (Negative) Urine Nitrite (Negative) Urine Bilirubin (Negative) Urine Urobilinogen (Up TO 0.2) EU/dL Ur Leukocyte Esterase (Negative) Urine Glucose (Negative) mg/dL COVID-19 Source SARS-CoV-2 (PCR) (Negative) ECG Data Attestation: I personally reviewed and interpreted this ECG (s) as follows: Interpretation: Sinus rhythm, ventricular rate of 99. Nonspecific T wave abnormalities. No STEMI HPI General Mode of arrival: wheelchair . Date/Time Provider Initiated Documentation: 05/11/22 10:19 . Limitations to Documentation: no limitations . Information obtained by: patient . HPI Narrative: This is a 72-year-old male, past medical history of COPD, hypertension, presenting to the ER after partaking in rehab for generalized weakness, blood pressure noted to be low, O2 sat was in the high 80s on room air, noted that he felt like he could potentially pass out. Patient reports that he is already feeling improvement, back to baseline, denies any shortness of breath or li ghtheadedness. Patient states that he had breakfast this morning and had his medications as he normally would but did not drink his typical cup of coffee. He denies recent illness or trauma. Denies headache, visual changes, neck pain, chest pain, active shortness of breath, abdominal pain, nausea, vomiting, focal weakness, change in bowel or bladder function. Patient wonders if he could be dehydrated, reports decreased oral intake, felt this way previously when dehydrated. Related Data Home Medications Medication Instructions Recorded Confirmed atorvastatin 10 mg tablet 10 mg PO HS 05/03/18 05/11/22 ergocalciferol (vitamin D2) 1,250 1 cap PO DIRECTED 05/03/18 05/11/22 mcg (50,000 unit) capsule multivitamin with minerals 1 tab PO QAM 05/03/18 05/11/22 tiotropium 2.5 mcg-olodaterol 2.5 1 puff inhalation BID 05/03/18 05/11/22 mcg/actuation mist for inhalation (Stiolto Respimat) albuterol sulfate 90 mcg/actuation 2 inh inhalation Q4H PRN 12/30/20 05/11/22 breath activated powder inhaler lisinopril 10 mg tablet 10 mg PO DAILY 12/30/20 05/11/22 hydrochlorothiazide 25 mg tablet 25 mg PO DAILY 06/09/21 05/11/22 prednisone 20 mg tablet 40 mg PO DAILY #10 tabs 11/11/21 prednisone 20 mg tablet 40 mg PO DAILY #8 tabs 11/13/21 Previous Rx's Medication Instructions Recorded prednisone 20 mg tablet 40 mg PO DAILY #10 tabs 11/11/21 prednisone 20 mg tablet 40 mg PO DAILY #8 tabs 11/13/21 Allergies Allergy/AdvReac Type Severity Reaction Status Date / Time No Known Allergies Allergy Unverified 05/11/22 10:34 General Stated Complaint: SOB STEFFEN: 2 Review of Systems Constitutional Constitutional: Denies fatigue, Denies fever(s), Denies headache(s) and Reports weakness (Generalized) Eyes Eyes: Denies change in vision ENT Ears, Nose, Mouth, and Throat: Denies headache(s) and Denies neck pain Cardiovascular Cardiovascular: Denies chest pain and Reports dyspnea (Resolved) Respiratory Respiratory: Denies cough and Reports dyspnea (Resolved) Gastrointestinal Gastrointestinal: Denies abdominal pain, Denies nausea and Denies vomiting Musculoskeletal Musculoskeletal: Denies back pain and Denies neck pain Integumentary/Breasts Skin/Breast: Denies rash Neurologic Neurologic: Denies headache(s) and Reports weakness (Generalized) Endocrine Endocrine: Denies fatigue Hematologic/Lymphatic Hematologic/Lymphatic: Denies easy bleeding and Denies easy bruising PFSH All Active Problems (Updated 05/11/22 @ 14:32 by RICK Harding) KAY (acute kidney injury) (Acute) DVT prophylaxis (Acute) Hypertension (Chronic) COPD (chronic obstructive pulmonary disease) (Chronic) Hypotension (Acute) Social History Smoking/Tobacco Use Status: Former Tobacco Use Smoking risk assessment performed?: Yes Alcohol Intake: never Drug use: Never Substance use type: does not use Do you feel safe at home: Yes Do you feel safe in your relationship?: Yes Exam Const General: cooperative, healthy appearing, comfortable and no acute distress Orientation: alert, awake and oriented x3 HENMT Head: normal to inspection, normocephalic and atraumatic Face and sinus: normal facial exam Mouth: moist mucous membranes Eyes General: appearance normal, both eyes and all related structures Conjunctivae: conjunctivae normal Neck Neck: normal visual inspection, full ROM, no meningeal signs, trachea midline and supple Resp Effort & Inspection: normal respiratory effort and able to speak in complete sentences Auscultation: diminished lung sounds bilaterally in the lower lung hardin and wheezes (rare scattered throughout) Cardio Rate: regular rate Rhythm: regular rhythm GI Palpation: soft, not firm, no guarding and nontender Back/Spine/Pelvis Back: No back tenderness Skin General skin exam: no rashes or lesions noted Neuro General: patient alert, patient awake, moves all extremities and no focal motor deficits Cognition: normal cognition Speech: speech normal Gait: normal gait Motor: muscle tone normal throughout Sensory Exam: no sensory deficits noted Extrem General: normal to inspection, full ROM, capillary refill normal, no pedal edema and no calf tenderness Psych Appearance: grossly normal Mental Status: mental status grossly normal Course Vital Signs Vital signs: Vital Signs Temperature 36.9 C 05/11/22 10:24 Pulse 100 H 05/11/22 10:24 Respiratory Rate 20 05/11/22 10:24 Blood Pressure 97/56 L 05/11/22 10:24 Pulse Oximetry 92 05/11/22 10:24 Temperature 36.9 C 05/11/22 10:24 Temperature Source Temporal Artery Scan 05/11/22 10:24 Pulse 100 H 05/11/22 10:24 Respiratory Rate 20 05/11/22 10:24 Respiratory Effort Short of Breath 05/11/22 10:31 Respiratory Depth Normal 05/11/22 10:31 Respiratory Pattern Normal 05/11/22 10:31 Blood Pressure 97/56 L 05/11/22 10:24 Blood Pressure Position Sitting 05/11/22 10:24 Pulse Oximetry 92 05/11/22 10:24 Oxygen Delivery Method Room Air 05/11/22 10:24 Oxygen Flow Rate 0 05/11/22 10:24 Pain Level 0 05/11/22 10:24 Lab/Test Results Lab/Test Results: Laboratory Tests Range/Units 05/11/22 05/11/22 10:30 10:38 NT-Pro-B Natriuret Pep Cancelled COVID-19 Source Nasal/Nares
[2022-05-11 10:52] LABS: Abs Immature Grans 0.04 10^3/uL (0.0-0.06); Absolute Basophil Count 0.07 10^3/uL (0.0-0.2); Absolute Eosinophil Count 0.24 10^3/uL (0.0-0.7); Absolute Lymphocyte Count 1.48 10^3/uL (1.2-3.4); Absolute Monocyte Count 0.98 10^3/uL (0.1-0.8); Basophils % 0.6; Eosinophils % 2.1; HCT 45.4 % (40.0-50.0); HGB 14.7 g/dL (13.5-17.5); Immature Grans % 0.4; MCH 30.2 pg (27.0-33.0); MCHC 32.4 % (32.0-36.0); MCV 93 fL (80-95); MPV 10.4 fL (8.0-11.0); Monocytes % 8.6; Neutrophils % 75.3; Platelet Count 330 10^3/uL (130-400); RBC 4.87 10^6/uL (4.36-5.78); RDW 13.2 % (11.8-14.1); RDW-SD 44.2 fL; WBC 11.41 10^3/uL (4.4-10.8)
[2022-05-11 11:01] LABS: Absolute Neutrophil Count 8.59 10^3/uL (1.2-6.7)
[2022-05-11 11:10] LABS: INR 0.9 (0.9-1.1); PTT Activated 21.2 sec (21.0-27.5); Prothrombin Time 9.5 sec (9.3-11.0)
--- NOTE | 2022-05-11 11:15 | DI.RAD_ITS ---
Exam(s) XR PORTABLE CHEST AP EXAM: XR PORTABLE CHEST AP CLINICAL HISTORY: SOB TECHNIQUE: COMPARISON: CT LDCT LUNG CANCER SCREENING 1,3 OR 6 MONTH FOLLOW UP from 10/18/2021 CR XR PORTABLE CHEST AP from 11/11/2021 FINDINGS: Heart is not enlarged. There are changes of COPD and mild changes of pulmonary scarring. No focal c onsolidation. No pleural effusion on this frontal film. IMPRESSION: No evidence of acute process. RADIATION DOSE DELIVERED: Total DLP
[2022-05-11 11:18] LABS: ALT 40 U/L (16-63); AST 23 U/L (15-37); Albumin 3.9 g/dL (3.4-5.0); Alkaline Phosphatase 88 U/L (46-116); Anion Gap 8.8 mmol/L (3-11); BUN 42 mg/dL (7-18); Bilirubin, Total 0.4 mg/dL (0.2-1.0); CO2 29.2 mmol/L (21.0-32.0); CREATININE 1.7 mg/dL (0.70-1.30); Calcium 9.5 mg/dL (8.5-10.1); Chloride 103 mmol/L (98-107); Glucose 124 mg/dL (74-106); Magnesium 1.8 mg/dL (1.8-2.4); NT-proBNP 87 pg/mL (<300); Sodium 141 mmol/L (136-145); Troponin I < 50 ng/L (<or=60)
[2022-05-11 11:26] LABS: Bilirubin Negative (Negative); Blood Negative (Negative); Clarity Clear (Clear); Glucose Negative (Negative); Ketones Negative (Negative); Leukocyte Esterase Negative (Negative); Nitrite Negative (Negative); Specific Gravity 1.025 (1.005-1.025); Urobilinogen 0.2 EU/dL (Up TO 0.2); pH 6.5 (5-8)
[2022-05-11 11:26] LABS: COVID-19 PCR Negative (Negative)
[2022-05-11 11:30] LABS: D-Dimer 1130 ng/mlFEU (<500)
--- NOTE | 2022-05-11 11:30 | DI.CT_ITS ---
Exam(s) CT CHEST PE CTA EXAM: CT CHEST PE CTA CLINICAL HISTORY: sob,elevated dimer. TECHNIQUE: Imaging Protocol: Axial CT angiography was performed with multi-slice acquisition and mu lti-planar and/or 3D reconstructions. CONTRAST MATERIAL: Intravenous: Omnipaque 350 Contrast volume:structured data in ml COMPARISON: CT CT CHEST PE CTA from 11/11/2021 a Jimbo there duct abdomen: Comes FINDINGS: CT angiography of the chest was performed with intravenous infusion of 100 cc of Omnipaque 350. There are severe pulmonary emphysematous changes.. No pleural effusion. There is mildly increased p rominence of pulmonary interstitial markings in comparison with prior examination of November 11. Thi s is a subtle finding but could represent viral or other diffuse infectious process. No focal consol idation identified. A 10-11 millimeter in diameter left lower lobe peripheral pulmonary nodule is again seen, this may nicole ve increased minimally since prior examination of November 11, this was reported previously at 8 katya meters mean diameter but measurement of the nodule on the prior examination performed today suggests mean diameter about 10 millimeters. 5 millimeter right lower lobe nodule is unchanged from prior study. Note is made of narrowing of left lower lobe bronchi at the inferior left hilum with normal caliber b ronchi more distally, this finding could reflect inflammation with bronchial wall thickening or secre tions, however possibility of neoplastic disease is not excluded and this finding was not present on prior CT of November 11 . No evidence of pulmonary embolic disease. Thoracic aorta is of normal diameter, no thoracic aortic an eurysm or dissection, major branch vessels appear intact. No mediastinal or hilar adenopathy. Images obtained through the upper abdomen show hepatic and right renal cysts as noted on prior examin ations, otherwise unremarkable appearance of the visualized portions of the liver, spleen, pancreas, adrenals, and kidneys. IMPRESSION: Slight interval increase in pulmonary interstitial markings, consider diffuse infectious process. Interval change in appearance of inferior left hilum with question bronchial wall thickening versus d eveloping mass. Appropriate follow-up studies requested. No evidence of pulmonary embolic disease. RADIATION DOSE DELIVERED: 485.58mGy.cm Total DLP 485.58mGy.cm Total DLP !Error CTDIvol DATA REPOSITORY: All CT scans at this facility are submitted to the National Radiology Data Registry (NRDR) Dose Index Registry (DIR) with the [employer] (ACR). RADIATION OPTIMIZATION: All CT scans at this facility use at least one of these dose optimization te chniques: automated exposure control; mA and/or kV adjustment per patient size (includes targeted exa ms where dose is matched to clinical indication); or iterative reconstruction.
[2022-05-11] MEDS: Omnipaque 350 MG/ML 500 ML BTL-Imaging package IJ (11:59)
--- NOTE | 2022-05-11 12:43 | NUR.NOTE ---
Nursing Note: Referral faxed to [facility] Pulmonology for nodule vs early mass, for first available appt.
--- NOTE | 2022-05-11 13:13 | NUR.NOTE ---
Nursing Note: pt returned from DI. has finished NS and has improved BP. pt states they are feeling much better
[2022-05-11 14:00] LABS: Troponin I < 50 ng/L (<or=60)
== END 2022-05-11 15:14 | disposition home or self-care (01) ==
PROVIDERS: Emergency Provider Physician Assistant
DX: I95.9 Hypotension, unspecified (principal); D72.829 Elevated white blood cell count, unspecified; I10 Essential (primary) hypertension; J44.9 Chronic obstructive pulmonary disease, unspecified; Z79.52 Long term (current) use of systemic steroids; Z87.891 Personal history of nicotine dependence; Z20.822 Contact with and (suspected) exposure to COVID-19
CPT/HCPCS: 36415; 71275; 80053; 87635; 93005; 96360; 99285; 71045; 81003; 83735; 83880; 84484; 85025; 85379; 85610; 85730; 93010; 99284

== ENCOUNTER 2022-05-18 09:53 | Outpatient (RCR) | payer OTHER, SELFPAY ==
[2022-04-22 00:15] VITALS: BP 123/70; PULSE 86
[2022-04-25 09:55] VITALS: BP 104/69; PULSE 100; O2SAT 89
[2022-04-27 09:55] VITALS: BP 106/71; PULSE 87; O2SAT 89
[2022-05-02 09:56] VITALS: BP 121/69; PULSE 81; O2SAT 89
[2022-05-09 09:55] VITALS: BP 103/68; PULSE 100; O2SAT 92
[2022-05-11 10:00] VITALS: BP 94/64; PULSE 102; O2SAT 91
[2022-05-11 10:15] VITALS: BP 84/52; PULSE 111; O2SAT 89
--- NOTE | 2022-05-11 10:28 | NUR.NOTE ---
Nursing Note: Ed comes to phase 3 CR this morning reporting more difficulty breathing today when compared to his baseline. SpO2 91% RA, HR 102, BP 94/64 manually. Permitted to continue with exercise at a lower intensity with plan to recheck vital signs. After one exercise Ed reports that his eyes feel funny and that he feels weak today (now reporting that he woke up this morning feeling more weak than his baseline). VS recheck is SpO2 89%, HR 111, BP 84/52 auto BP. Given patients symptoms, the ER was called, report given, and patient brought down to ER 6 for further assessment. Ed was in agreement with this plan.
[2022-05-16 09:52] VITALS: BP 130/74; PULSE 84; O2SAT 88
[2022-05-18 09:54] VITALS: BP 137/71; PULSE 85
== END 2022-05-22 23:59 | disposition home or self-care (01) ==
LOC: CR 09:53
PROVIDERS: Visit Provider Internal Medicine Cardiovascular Disease
DX: R69 Illness, unspecified (principal)
CPT/HCPCS: S9472

== ENCOUNTER 2022-06-13 09:52 | Outpatient (RCR) | payer SELFPAY ==
[2022-05-23 00:06] VITALS: BP 137/71; PULSE 85
[2022-05-23 11:32] VITALS: BP 130/76; PULSE 88; O2SAT 92
[2022-05-25 09:49] VITALS: BP 135/72; PULSE 74; O2SAT 88
[2022-05-30 09:51] VITALS: BP 143/80; PULSE 84; O2SAT 94
[2022-06-01 09:53] VITALS: BP 124/80; PULSE 86; O2SAT 94
[2022-06-06 09:49] VITALS: BP 136/75; PULSE 77; O2SAT 87
[2022-06-08 09:56] VITALS: BP 138/73; PULSE 74; O2SAT 93
[2022-06-13 09:50] VITALS: BP 138/79; PULSE 81
== END 2022-06-21 23:59 | disposition home or self-care (01) ==
LOC: CR 09:52
PROVIDERS: Visit Provider Internal Medicine Cardiovascular Disease
DX: R69 Illness, unspecified (principal)

== ENCOUNTER 2022-07-12 00:53 | Outpatient (CLI) | payer OTHER, SELFPAY ==
--- NOTE | 2022-07-12 | DI.CT_ITS ---
Exam(s) CT CHEST W EXAM: CT CHEST W CLINICAL HISTORY: LLL LUNG CA, C34.32,S/P SBRT,EVAL FOR RECURRENCE, RESPONSE. TECHNIQUE: Multi planar reconstructions were performed. CONTRAST MATERIAL: Omnipaque 350; 75 cc COMPARISON: CT CT CHEST PE CTA from 11/11/[address] CHEST PE CTA from 05/11/2022 FINDINGS: CHEST: LUNGS: Findings are centrally unchanged from 05/11/2022. Previously described narrowing of left lowe r lobe bronchus again noted. The mainstem bronchus is patent. Subpleural nodule in left lower lobe measures 6 millimeters on today's study, slightly smaller than previous study of 05/11/2022. Also sl ightly smaller than 11/11/2021. There are no new additional left lung nodules. No pleural effusions . In the opposite-right lung a small pleural-based 3 millimeter nodule over the lateral aspect of the r ight upper lobe is unchanged. A small nodule in the right lower lobe measuring 3-4 millimeter is als o unchanged. There are no new right lung nodules. No pleural effusions on either side. MEDIASTINUM: There is no obvious new hilar adenopathy. No subcarinal adenopathy. No adenopathy in t he anterior mediastinal fat. Visualized thyroid unremarkable. CARDIAC: Heart size is normal. There is no pericardial effusion.Caliber of the thoracic aorta is wit hin upper normal limits. No evidence of dissection VISUALIZED UPPER ABDOMEN:There are no significant adrenal masses. Benign cysts again noted in the pa rtially visualized kidneys. No splenomegaly. Also benign-appearing cysts in the liver again evident . OSSEOUS: Healed bilateral rib fractures again noted. No acute fractures. No lytic osseous lesions i dentified. No new compression fractures. IMPRESSION: 1. The subpleural left lower lobe nodule appears to have decreased 2 millimeters from the prior study , presently measuring 6 millimeters. 2. Left lower lobe bronchus findings are unchanged. No prominent adenopathy evident. 3. Solitary small right lower lobe nodules unchanged. There are no pleural effusions. RADIATION DOSE DELIVERED: 619.87mGy.cm Total DLP DATA REPOSITORY: All CT scans at this facility are submitted to the National Radiology Data Registry (NRDR) Dose Index Registry (DIR) with the [employer] (A[employer]). RADIATION OPTIMIZATION: All CT scans at this facility use at least one of these dose optimization te chniques: automated exposure control; mA and/or kV adjustment per patient size (includes targeted exa ms where dose is matched to clinical indication); or iterative reconstruction.
[2022-07-12 10:25] LABS: CREATININE 1.4 mg/dL (0.70-1.30)
[2022-07-12] MEDS: Normal Saline - Diluent 50 ML VIAL IJ (11:22)
[2022-07-12] MEDS: Normal Saline Flush 10 ML SYR IVP (11:22)
[2022-07-12] MEDS: Omnipaque 350 MG/ML 100 ML BTL 70 ML IJ (11:23)
== END 2022-07-12 01:13 ==
LOC: DI 00:54
PROVIDERS: Visit Provider Preventive Medicine Undersea and Hyperbaric Medicine
DX: C34.32 Malignant neoplasm of lower lobe, left bronchus or lung (principal); R91.8 Other nonspecific abnormal finding of lung field
CPT/HCPCS: 71260; 82565; J3490

== ENCOUNTER 2022-07-20 09:49 | Outpatient (RCR) | payer SELFPAY ==
[2022-06-22 00:05] VITALS: BP 138/79; PULSE 81
[2022-06-22 09:57] VITALS: BP 130/80; PULSE 96
[2022-06-27 10:11] VITALS: BP 116/74; PULSE 101; O2SAT 92
[2022-06-29 10:00] VITALS: BP 117/75; PULSE 86; O2SAT 90
[2022-07-11 09:58] VITALS: BP 122/71; PULSE 86; O2SAT 95
[2022-07-13 10:40] VITALS: BP 126/74; PULSE 81
[2022-07-18 09:57] VITALS: BP 103/66; PULSE 89; O2SAT 92
[2022-07-20 09:48] VITALS: BP 134/78; O2SAT 94
== END 2022-07-22 23:59 | disposition home or self-care (01) ==
LOC: CR 09:49
PROVIDERS: Visit Provider Internal Medicine Cardiovascular Disease
DX: R69 Illness, unspecified (principal)

== ENCOUNTER 2022-08-22 09:52 | Outpatient (RCR) | payer SELFPAY ==
[2022-07-23 00:03] VITALS: BP 134/78; PULSE 89
[2022-07-25 10:02] VITALS: BP 120/74; PULSE 82; O2SAT 95
[2022-07-27 09:49] VITALS: BP 131/79; PULSE 73; O2SAT 95
[2022-08-01 09:51] VITALS: BP 130/76; PULSE 83; O2SAT 94
[2022-08-03 10:52] VITALS: BP 134/78; PULSE 85; O2SAT 93
[2022-08-08 10:00] VITALS: BP 123/76; PULSE 85; O2SAT 91
[2022-08-10 09:52] VITALS: BP 133/76; PULSE 87; O2SAT 92
[2022-08-15 11:07] VITALS: BP 115/68; PULSE 84
[2022-08-17 10:05] VITALS: BP 129/74; PULSE 73
[2022-08-22 10:18] VITALS: BP 121/74; PULSE 90; O2SAT 92
== END 2022-08-22 23:59 | disposition home or self-care (01) ==
LOC: CR 09:52
PROVIDERS: Visit Provider Internal Medicine Cardiovascular Disease
DX: R69 Illness, unspecified (principal)

== ENCOUNTER 2022-10-19 10:13 | Outpatient (RCR) | payer SELFPAY ==
[2022-09-20 00:17] VITALS: BP 128/75; PULSE 79
[2022-09-21 09:50] VITALS: BP 129/73; PULSE 85; O2SAT 92
[2022-09-26 09:53] VITALS: BP 122/73; PULSE 93
[2022-09-28 09:51] VITALS: BP 125/71; PULSE 84; O2SAT 94
[2022-10-03 10:06] VITALS: BP 134/76; PULSE 84; O2SAT 92
[2022-10-05 10:14] VITALS: BP 129/74; PULSE 85; O2SAT 92
[2022-10-10 10:20] VITALS: BP 128/76; PULSE 83; O2SAT 92
[2022-10-12 10:16] VITALS: BP 126/66; PULSE 87
[2022-10-17 09:51] VITALS: BP 125/75; PULSE 91
[2022-10-19 10:15] VITALS: BP 118/76; PULSE 87; O2SAT 92
[2022-10-24 10:10] VITALS: BP 103/67; PULSE 88
== END 2022-10-20 23:59 | disposition home or self-care (01) ==
LOC: CR 10:13
PROVIDERS: Visit Provider Internal Medicine Cardiovascular Disease

== ENCOUNTER 2022-11-08 00:57 | Outpatient (CLI) | payer OTHER, SELFPAY ==
[2022-11-08 13:12] LABS: CREATININE 1.3 mg/dL (0.70-1.30); Estimated GFR 58.37 (mL/min/1.73m2)
[2022-11-08] MEDS: Omnipaque 350 MG/ML 500 ML BTL-Imaging package 70 ML IJ (13:35)
[2022-11-08] MEDS: Normal Saline - Diluent 50 ML VIAL IJ (13:37)
--- NOTE | 2022-11-08 13:45 | DI.CT_ITS ---
Exam(s) CT CHEST W EXAM: CT CHEST W CLINICAL HISTORY: NSCLC, LT LOWER LOBE, C34.32 TECHNIQUE: Imaging Protocol: Axial computed tomography images with coronal and sagittal reformatted images were created and reviewed CONTRAST MATERIAL: Intravenous: Omnipaque 350Contrast volume:70 mL. COMPARISON: CT CT CHEST W from 07/12/2022 FINDINGS: Tracheobronchial tree: There is again seen narrowing of the left lower lobe bronchus. There is now c omplete collapse of the left lower lobe. This was not present on the prior examination. Pulmonary parenchyma: There is a stable subpleural nodule in the lateral aspect of the right upper lo be. There is a stable small nodule associated within the right middle lobe. There is a stable nodul e in the right lower lobe. There now linear infiltrates associated with the left lingula. This was not present on the prior examination. Marked emphysematous changes are present in the lungs. Mediastinum and Felicitas: No dominant adenopathy or fluid collection. The esophagus is unremarkable. Thyroid gland: Unremarkable. Pleura: No effusion or pneumothorax. Heart: The heart is not dilated. Coronary artery calcification and/or stents are present. No pericar dial effusion. Aorta: Thoracic aorta non-dilated. Atherosclerosis is present. Pulmonary arteries: Due to the timing of the bolus, there is suboptimal enhancement of the pulmonary arteries for evaluation of pulmonary emboli. Upper abdomen: There again seen multiple hepatic and renal cysts. Lymph nodes: Within normal limits. Bones: Within normal limits for the patient's age. There are old healed bilateral rib fractures. Ol d compression deformities are seen at T2, T3 and T12. Soft tissues: Unremarkable. IMPRESSION: 1. Interval development of complete collapse of the left lower lobe. Findings are suspicious for obs tructing endobronchial lesion. 2. New linear infiltrates associated with the left lingula. Atelectasis, scarring, pneumonia or meta static disease should be considered. 3. Stable pulmonary nodules. RADIATION DOSE DELIVERED: 690.68mGy.cm Total DLP DATA REPOSITORY: All CT scans at this facility are submitted to the National Radiology Data Registry (NRDR) Dose Index Registry (DIR) with the [employer] (ACR). RADIATION OPTIMIZATION: All CT scans at this facility use at least one of these dose optimization te chniques: automated exposure control; mA and/or kV adjustment per patient size (includes targeted exa ms where dose is matched to clinical indication); or iterative reconstruction.
== END 2022-11-08 01:17 ==
PROVIDERS: Visit Provider Preventive Medicine Undersea and Hyperbaric Medicine
DX: C34.32 Malignant neoplasm of lower lobe, left bronchus or lung (principal); Z87.891 Personal history of nicotine dependence
CPT/HCPCS: 71260; 82565

== ENCOUNTER 2022-11-16 09:47 | Outpatient (RCR) | payer SELFPAY ==
[2022-10-21 00:21] VITALS: BP 118/76; PULSE 87
[2022-10-26 10:13] VITALS: BP 117/73; PULSE 76; O2SAT 91
[2022-10-31 10:19] VITALS: BP 141/78; PULSE 80
[2022-11-07 10:07] VITALS: BP 125/78; PULSE 93; O2SAT 92
[2022-11-09 09:59] VITALS: BP 126/70; PULSE 82; O2SAT 90
[2022-11-14 10:13] VITALS: BP 129/72; PULSE 75; O2SAT 94
[2022-11-16 09:52] VITALS: BP 132/77; PULSE 74; O2SAT 90
== END 2022-11-19 23:59 | disposition home or self-care (01) ==
LOC: CR 09:47
PROVIDERS: Visit Provider Internal Medicine Cardiovascular Disease
DX: R69 Illness, unspecified (principal)

== ENCOUNTER 2022-12-19 10:21 | Outpatient (RCR) | payer SELFPAY ==
[2022-11-20 00:09] VITALS: BP 132/77; PULSE 74
[2022-11-21 10:28] VITALS: BP 118/73; PULSE 81; O2SAT 90
[2022-11-23 09:57] VITALS: BP 140/70; PULSE 78; O2SAT 92
[2022-11-28 10:07] VITALS: BP 135/70; PULSE 72
[2022-12-05 10:05] VITALS: BP 139/83; PULSE 90; O2SAT 92
[2022-12-07 10:24] VITALS: BP 126/70; PULSE 84
[2022-12-12 09:49] VITALS: BP 138/70; PULSE 76
[2022-12-19 10:30] VITALS: BP 145/80; PULSE 83; O2SAT 90
== END 2022-12-20 23:59 | disposition home or self-care (01) ==
LOC: CR 10:21
PROVIDERS: Visit Provider Internal Medicine Cardiovascular Disease

== ENCOUNTER 2023-01-18 10:09 | Outpatient (RCR) | payer SELFPAY ==
[2022-12-21 00:05] VITALS: BP 145/80; PULSE 83
[2022-12-21 10:21] VITALS: BP 126/81; PULSE 86; O2SAT 90
[2022-12-26 09:46] VITALS: BP 136/83; PULSE 73; O2SAT 89
[2023-01-02 10:30] VITALS: BP 140/73; PULSE 89; O2SAT 92
[2023-01-04 09:50] VITALS: BP 137/86; PULSE 75
[2023-01-09 09:52] VITALS: BP 115/74; PULSE 82; O2SAT 91
[2023-01-11 09:57] VITALS: BP 136/78; PULSE 85; O2SAT 92
[2023-01-16 09:45] VITALS: BP 102/72; PULSE 87; O2SAT 92
[2023-01-18 10:26] VITALS: BP 143/58; PULSE 66
== END 2023-01-19 23:59 | disposition home or self-care (01) ==
LOC: CR 10:09
PROVIDERS: Visit Provider Internal Medicine Cardiovascular Disease
DX: R69 Illness, unspecified (principal)

== ENCOUNTER 2023-02-15 09:59 | Outpatient (RCR) | payer SELFPAY ==
[2023-01-20 00:03] VITALS: BP 143/58; PULSE 66
[2023-01-25 10:18] VITALS: BP 137/81; PULSE 84; O2SAT 91
[2023-01-30 10:14] VITALS: BP 114/73; PULSE 80
[2023-02-01 10:24] VITALS: BP 129/75; PULSE 75; O2SAT 91
[2023-02-06 10:10] VITALS: BP 136/78; PULSE 72; O2SAT 93
[2023-02-08 09:47] VITALS: BP 125/75; PULSE 66; O2SAT 92
[2023-02-13 09:56] VITALS: BP 110/73; PULSE 77; O2SAT 87
[2023-02-15 10:05] VITALS: BP 123/79; PULSE 72; O2SAT 91
== END 2023-02-19 23:59 | disposition home or self-care (01) ==
LOC: CR 09:59
PROVIDERS: Visit Provider Internal Medicine Cardiovascular Disease
DX: R69 Illness, unspecified (principal)

== ENCOUNTER 2023-03-22 09:58 | Outpatient (RCR) | payer SELFPAY ==
[2023-02-20 00:11] VITALS: BP 123/79; PULSE 72
[2023-02-20 10:10] VITALS: BP 116/70; PULSE 71; O2SAT 90
[2023-02-22 09:46] VITALS: BP 119/70; PULSE 75; RESP 90
[2023-02-27 09:47] VITALS: BP 111/70; PULSE 79; O2SAT 93
[2023-03-01 09:58] VITALS: BP 128/68; PULSE 68; O2SAT 89
[2023-03-06 10:34] VITALS: BP 123/72; PULSE 75; O2SAT 92
[2023-03-08 09:53] VITALS: BP 117/75; PULSE 81; O2SAT 93
[2023-03-13 09:50] VITALS: BP 124/80; PULSE 77; O2SAT 91
[2023-03-15 10:15] VITALS: BP 119/60; PULSE 45
[2023-03-22 10:10] VITALS: BP 119/74; PULSE 73; O2SAT 93
== END 2023-03-22 23:59 | disposition home or self-care (01) ==
LOC: CR 09:58
PROVIDERS: Visit Provider Internal Medicine Cardiovascular Disease
DX: R69 Illness, unspecified (principal)

== ENCOUNTER → 2023-03-29 02:48 | Outpatient (CLI) | payer OTHER, SELFPAY ==
--- NOTE | 2023-03-29 | DI.CT_ITS ---
Exam(s) CT CHEST W EXAM: CT CHEST W CLINICAL HISTORY: [id number],LT LUNG CA,C34.32,ASSESS TREATMENT RESPONSE. TECHNIQUE: Multi planar reconstructions were performed. 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 Again noted is collapse of the left lowe r lobe consistent with probable endobronchial neoplastic lesion. Vasculature within the collapsed lo be is patent. There are no pulmonary emboli evident. Some atelectasis in the left upper lobe sub is also again noted. This has not increased. There is no pleural effusion. The opposite-right lung i s clear with no infiltrates nor ominous pulmonary nodules nor pleural fluid on the right side. MEDIASTINUM: No obvious hilar nor mediastinal adenopathy. No axillary adenopathy visualized thyroid unremarkable. CARDIAC: Heart size is normal. There is no pericardial effusion.Thoracic aorta unremarkable. No wade dence of dissection. Incidentally noted is independent origin of the left vertebral artery off of th e aortic arch. VISUALIZED UPPER ABDOMEN:Multiple cysts in both kidneys noted. Left adrenal gland unremarkable. Sli ght nodular thickening of the right adrenal gland. Benign cysts again noted in the liver. No ascite s. No splenomegaly. OSSEOUS: Healed posterior left rib fractures. May not be related to prior surgery. Mild compression fracture of T12 again noted. No new fractures. No lytic osseous lesions.. IMPRESSION: 1. Minimal if any significant change when compared to prior CT scan of 11/08/2022. Left lower lobe c ollapse again noted highly suspicious for obstructing endobronchial lesion. Atelectasis in the left upper lobe and lingular segment again noted. No new additional lung nodules. No pleural effusions. No prominent intrathoracic adenopathy. 2. Other findings as above. RADIATION DOSE DELIVERED: 653.2mGy.cm Total DLP DATA REPOSITORY: All CT scans at this facility are submitted to the National Radiology Data Registry (NRDR) Dose Index Registry (DIR) with the [employer] (ACR). RADIATION OPTIMIZATION: All CT scans at this facility use at least one of these dose optimization te chniques: automated exposure control; mA and/or kV adjustment per patient size (includes targeted exa ms where dose is matched to clinical indication); or iterative reconstruction.
[2023-03-29 12:26] LABS: CREATININE 1.4 mg/dL (0.70-1.30); Estimated GFR 53.07 (mL/min/1.73m2)
[2023-03-29] MEDS: Omnipaque 350 MG/ML 100 ML BTL IJ (12:53)
[2023-03-29] MEDS: Normal Saline - Diluent 50 ML VIAL IJ (12:54)
[2023-03-29] MEDS: Normal Saline Flush 10 ML SYR IVP (12:55)
== END ==
PROVIDERS: Visit Provider Preventive Medicine Undersea and Hyperbaric Medicine
DX: C34.32 Malignant neoplasm of lower lobe, left bronchus or lung (principal); J98.11 Atelectasis
CPT/HCPCS: 71260; 82565; J3490

== ENCOUNTER 2023-04-19 09:59 | Outpatient (RCR) | payer SELFPAY ==
[2023-03-23 00:06] VITALS: BP 119/74; PULSE 73; RESP 90
[2023-03-27 11:16] VITALS: BP 112/60; PULSE 76; O2SAT 90
[2023-03-29 10:06] VITALS: BP 132/71; PULSE 71; O2SAT 90
[2023-04-03 10:06] VITALS: BP 132/69; PULSE 72; O2SAT 92
[2023-04-05 10:10] VITALS: BP 119/75; PULSE 67; O2SAT 92
[2023-04-10 10:08] VITALS: BP 124/73; PULSE 85; O2SAT 96
[2023-04-12 10:35] VITALS: BP 119/69; PULSE 73; O2SAT 93
[2023-04-17 10:04] VITALS: BP 128/73; PULSE 75; O2SAT 92
[2023-04-19 10:11] VITALS: BP 147/94; PULSE 77
[2023-04-26 10:04] VITALS: BP 126/81; PULSE 84; O2SAT 90
== END 2023-04-21 23:59 | disposition home or self-care (01) ==
LOC: CR 09:59
PROVIDERS: Visit Provider Internal Medicine Cardiovascular Disease
DX: R69 Illness, unspecified (principal)

== ENCOUNTER 2023-05-22 09:54 | Outpatient (RCR) | payer SELFPAY ==
[2023-04-22 00:12] VITALS: BP 147/94; PULSE 77; RESP 90
[2023-04-24 10:25] VITALS: BP 106/65; PULSE 85
[2023-05-03 09:52] VITALS: BP 120/76; PULSE 78
[2023-05-08 10:13] VITALS: BP 117/75; PULSE 87; O2SAT 93
[2023-05-10 10:21] VITALS: BP 123/71; PULSE 84; O2SAT 93
[2023-05-15 10:43] VITALS: BP 123/72; PULSE 78; O2SAT 92
[2023-05-17 10:40] VITALS: BP 113/71; PULSE 69
[2023-05-22 10:46] VITALS: BP 127/77; PULSE 80; O2SAT 90
== END 2023-05-22 23:59 | disposition home or self-care (01) ==
LOC: CR 09:54
PROVIDERS: Visit Provider Internal Medicine Cardiovascular Disease
DX: R69 Illness, unspecified (principal)

== ENCOUNTER 2023-06-21 09:54 | Outpatient (RCR) | payer SELFPAY ==
[2023-05-23 00:08] VITALS: BP 147/94; PULSE 77; RESP 90
[2023-05-24 10:31] VITALS: BP 128/78; PULSE 75
[2023-05-29 10:09] VITALS: BP 114/74; PULSE 75; O2SAT 94
[2023-06-05 10:21] VITALS: BP 132/84; PULSE 86; O2SAT 91
[2023-06-07 10:45] VITALS: BP 106/71; O2SAT 90
[2023-06-19 09:53] VITALS: BP 131/78; PULSE 86; O2SAT 94
[2023-06-21 10:14] VITALS: BP 124/77; PULSE 78; O2SAT 93
== END 2023-06-21 23:59 | disposition home or self-care (01) ==
LOC: CR 09:54
PROVIDERS: Visit Provider Internal Medicine Cardiovascular Disease
DX: R69 Illness, unspecified (principal)

== ENCOUNTER 2023-07-19 10:00 | Outpatient (RCR) | payer SELFPAY ==
[2023-06-22 00:06] VITALS: BP 147/94; PULSE 77; RESP 90
[2023-06-26 10:00] VITALS: BP 114/68; PULSE 79; O2SAT 95
[2023-06-28 10:12] VITALS: BP 112/70; PULSE 82; O2SAT 94
[2023-07-17 14:54] VITALS: BP 120/71; PULSE 72; O2SAT 91
[2023-07-19 10:03] VITALS: BP 124/74; PULSE 84
== END 2023-07-22 23:59 | disposition home or self-care (01) ==
LOC: CR 10:00
PROVIDERS: Visit Provider Internal Medicine Cardiovascular Disease
DX: R69 Illness, unspecified (principal)

== ENCOUNTER → 2023-07-26 01:24 | Outpatient (CLI) | payer OTHER, SELFPAY ==
[2023-05-31 09:58] VITALS: BP 121/81; PULSE 77; O2SAT 93
[2023-07-03 10:16] VITALS: BP 127/75; PULSE 71
[2023-07-05 11:26] VITALS: BP 128/78; PULSE 72; O2SAT 91
[2023-07-10 09:58] VITALS: BP 132/80; PULSE 75
[2023-07-12 10:09] VITALS: BP 134/72; PULSE 91
--- NOTE | 2023-07-26 | DI.CT_ITS ---
Exam(s) CT CHEST W EXAM: CT CHEST W CLINICAL HISTORY: F/U LUNG CA,C34.32,S/P TREATMENT,ASSESS RESPONSE,ASSESS FOR RECURRENCE TECHNIQUE: Imaging Protocol: Axial computed tomography images with coronal and sagittal reformatted images were created and reviewed CONTRAST MATERIAL: Intravenous: Omnipaque 350Contrast volume:100 mL. COMPARISON: CT CT CHEST W from 11/08/[address] CHEST W from 03/29/2023 FINDINGS: Tracheobronchial tree: Patent where visualized. Pulmonary parenchyma: Marked centrilobular emphysematous changes are present. There has been no luna ge in the collapse of the left lower lobe. There is again seen an abrupt cut off of the left lower l obe bronchus. The findings are suggestive of an endobronchial lesion. There is a stable 4 mm periph eral right upper lobe pulmonary nodule. (Series 3, image 132). There is a stable 4 mm nodule in the periphery of the right middle lobe. (Series 3, image 364). There is stable scarring seen in the le ft lung. No new focal consolidating infiltrates or nodules are seen. There is a stable 4 mm nodule in the periphery of the right lower lobe. (Series 3, image 410). Mediastinum and Felicitas: No dominant adenopathy or fluid collection. The esophagus is unremarkable. Thyroid gland: Unremarkable. Pleura: No effusion or pneumothorax. Heart: The heart is not dilated. Coronary artery calcification and/or stents are present. No pericar dial effusion. Aorta: Thoracic aorta non-dilated. Atherosclerosis. No evidence of dissection. Pulmonary arteries: The bolus timing was not suited for opacification of the pulmonary arteries. No large central pulmonary embolus is seen. Upper abdomen: Unremarkable. Lymph nodes: Within normal limits. Bones: Within normal limits for the patient's age. Old healed rib fractures. Soft tissues: Unremarkable. IMPRESSION: 1. Stable appearance of the left lower lobe with marked atelectasis. 2. Stable pulmonary nodules. No new pulmonary nodules. 3. No acute pulmonary process. RADIATION DOSE DELIVERED: Total DLP DATA REPOSITORY: All CT scans at this facility are submitted to the National Radiology Data Registry (NRDR) Dose Index Registry (DIR) with the [employer] ([employer]). RADIATION OPTIMIZATION: All CT scans at this facility use at least one of these dose optimization te chniques: automated exposure control; mA and/or kV adjustment per patient size (includes targeted exa ms where dose is matched to clinical indication); or iterative reconstruction.
[2023-07-26 09:17] LABS: CREATININE 1.5 mg/dL (0.70-1.30); Estimated GFR 48.85 (mL/min/1.73m2)
[2023-07-26] MEDS: Normal Saline - Diluent 50 ML VIAL IJ (09:59)
[2023-07-26] MEDS: Omnipaque 350 MG/ML 500 ML BTL-Imaging package 100 ML IJ (10:01)
== END ==
PROVIDERS: Visit Provider Preventive Medicine Undersea and Hyperbaric Medicine
DX: C34.32 Malignant neoplasm of lower lobe, left bronchus or lung (principal)
CPT/HCPCS: 71260; 82565

== ENCOUNTER 2023-08-21 09:45 | Outpatient (RCR) | payer SELFPAY ==
[2023-07-23 00:16] VITALS: BP 147/94; PULSE 77; RESP 90
[2023-07-24 10:04] VITALS: BP 124/79; PULSE 85; O2SAT 91
[2023-07-31 10:04] VITALS: BP 115/71; PULSE 81
[2023-08-02 11:23] VITALS: BP 90/60; PULSE 90; O2SAT 90
[2023-08-07 09:52] VITALS: BP 110/74; PULSE 79; O2SAT 96
[2023-08-09 10:05] VITALS: BP 130/70; PULSE 88; O2SAT 91
[2023-08-14 09:52] VITALS: BP 96/60; PULSE 82; O2SAT 88
[2023-08-21 09:46] VITALS: BP 113/74; PULSE 86; O2SAT 93
== END 2023-08-22 23:59 | disposition home or self-care (01) ==
LOC: CR 09:45
PROVIDERS: Visit Provider Internal Medicine Interventional Cardiology
DX: R69 Illness, unspecified (principal)

== ENCOUNTER 2023-09-20 09:31 | Outpatient (RCR) | payer SELFPAY ==
[2023-08-23 00:22] VITALS: BP 147/94; PULSE 77; RESP 90
[2023-08-23 09:47] VITALS: BP 116/75; PULSE 84; O2SAT 93
[2023-08-28 11:10] VITALS: BP 119/77; PULSE 70; O2SAT 94
[2023-09-04 10:07] VITALS: BP 127/81; PULSE 74; O2SAT 93
[2023-09-06 10:00] VITALS: BP 128/82; PULSE 78; O2SAT 91
[2023-09-11 13:15] VITALS: BP 138/72; PULSE 70; O2SAT 91
[2023-09-13 10:30] VITALS: BP 116/67; PULSE 94; O2SAT 94
[2023-09-18 10:15] VITALS: BP 114/73; PULSE 79; O2SAT 91
[2023-09-20 09:33] VITALS: BP 151/68; PULSE 77; O2SAT 90
== END 2023-09-20 23:59 | disposition home or self-care (01) ==
LOC: CR 09:31
PROVIDERS: Visit Provider Internal Medicine Cardiovascular Disease
DX: R69 Illness, unspecified (principal)

== ENCOUNTER 2023-10-18 09:52 | Outpatient (RCR) | payer SELFPAY ==
[2023-09-21 00:08] VITALS: BP 147/94; PULSE 77; RESP 90
[2023-09-25 10:01] VITALS: BP 117/76; PULSE 81; O2SAT 95
[2023-09-27 10:15] VITALS: BP 135/80; PULSE 87; O2SAT 92
[2023-10-02 10:02] VITALS: BP 120/84; PULSE 77; O2SAT 88
[2023-10-04 10:03] VITALS: BP 136/81; PULSE 70
[2023-10-16 10:05] VITALS: BP 124/75; PULSE 78; O2SAT 91
[2023-10-18 10:20] VITALS: BP 122/77; PULSE 70; O2SAT 91
== END 2023-10-21 23:59 | disposition home or self-care (01) ==
LOC: CR 09:52
PROVIDERS: Visit Provider Internal Medicine Cardiovascular Disease
DX: R69 Illness, unspecified (principal)

== ENCOUNTER 2023-11-20 10:23 | Outpatient (RCR) | payer SELFPAY ==
[2023-10-23 10:51] VITALS: BP 133/76; PULSE 69; O2SAT 89
[2023-10-25 09:42] VITALS: BP 141/75; PULSE 70; O2SAT 94
[2023-10-30 10:13] VITALS: BP 107/72; PULSE 82; O2SAT 92
[2023-11-01 09:47] VITALS: BP 113/73; PULSE 68; O2SAT 89
[2023-11-06 10:05] VITALS: BP 135/79; PULSE 84; O2SAT 85
[2023-11-08 09:49] VITALS: BP 121/86; PULSE 82; O2SAT 89
[2023-11-13 10:02] VITALS: BP 132/74; PULSE 75
[2023-11-15 10:39] VITALS: BP 123/74; PULSE 76; O2SAT 94
[2023-11-20 10:25] VITALS: BP 111/75; PULSE 82; O2SAT 96
== END 2023-11-20 23:59 | disposition home or self-care (01) ==
LOC: CR 10:23
PROVIDERS: Visit Provider Internal Medicine Cardiovascular Disease
DX: R69 Illness, unspecified (principal)

== ENCOUNTER 2023-12-11 09:58 | Outpatient (RCR) | payer SELFPAY ==
[2023-11-21 00:13] VITALS: BP 111/75; PULSE 82
[2023-11-22 09:56] VITALS: BP 124/74; PULSE 78; O2SAT 89
[2023-11-29 10:59] VITALS: BP 124/74; PULSE 77; O2SAT 90
[2023-12-04 10:16] VITALS: BP 128/83; PULSE 81; O2SAT 96
[2023-12-06 10:33] VITALS: BP 116/75; PULSE 74; O2SAT 90
[2023-12-11 10:17] VITALS: BP 121/79; PULSE 80; O2SAT 94
== END 2023-12-21 23:59 | disposition home or self-care (01) ==
LOC: CR 09:58
PROVIDERS: Visit Provider Internal Medicine Cardiovascular Disease
DX: R69 Illness, unspecified (principal)

== ENCOUNTER 2024-01-20 18:00 | Emergency (ER) | payer OTHER, SELFPAY ==
[2024-01-20 18:06] VITALS: BP 116/67; PULSE 97; RESP 16; TEMP 36.6; O2SAT 92
--- NOTE | 2024-01-20 20:00 | DI.CT_ITS ---
Exam(s) CT ABD AORTA CTA W RUNOFF EXAM: CT ABD AORTA CTA W RUNOFF CLINICAL HISTORY: severe heel pain; arterial plaque seen on US. TECHNIQUE: Imaging Protocol: Axial computed tomography images with coronal and sagittal reformatted images were created and reviewed CONTRAST MATERIAL: Intravenous: Omnipaque 350 Contrast volume:100 ml Oral: None COMPARISON: CT CT CHEST PE CTA from 05/11/2022 FINDINGS: Uppermost images reveal significant volume loss in basal segment of the left lower lobe which was not present on the April [address]22 CT scan. Will require chest CT scan to rule out malignancy. There are no pleural effusions. This findings superimposed upon COPD findings. ABDOMEN: ABDOMINAL AORTA: No significant narrowing at the origin of the celiac artery. Circumferential calcif ied plaque is noted at the origin superior mesenteric artery with mild stenosis at this level. Infer ior mesenteric artery is a thin vessel coming off of the area of aneurysmal dilatation described belo w. AORTOILIAC:There is an infrarenal abdominal aortic aneurysm with maximum external diameter of 3.6 cm. No dissection. There is also arterial megaly of the common iliac arteries which both exhibit incre ased diameters 1.5 cm on the right and 1.8 cm on the left. There is no critical stenosis in these ve ssels nor at the junctions with the external iliac arteries. The external iliac arteries exhibit mil d atherosclerotic involvement. Internal iliac arteries are patent. 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 This is 2 cm distal to its origin. There are no aneurysms of the common femoral arteries. There is mild atherosclerotic disease of the bilateral SFA arteries wi thout evidence of occlusion. Also mild atherosclerotic involvement of the bilateral popliteal arteri es. No evidence of popliteal artery aneurysms. The tibioperoneal trunks are patent. There appears to be satisfactory runoff in the upper calves. Timing is suboptimal for image acquisition in the low er calves and feet. There is no ascites. LIVER: There is a benign-appearing cyst in the medial aspect of the right hepatic lobe which measures 3 by 2.9 cm. Does not require further investigation. GALLBLADDER/BILIARY: Tiny densities in the gallbladder dependent wall are either tiny calculi or poly ps. There is no gallbladder wall edema. CBD is not dilated. PANCREAS: No evidence of pancreatic mass nor dilatation of the pancreatic duct. SPLEEN: Spleen is not enlarged. There are no intrasplenic lesions. Splenic and portal veins are valentine nt. ADRENALS: There are no significant adrenal masses. KIDNEYS: There are multiple bilateral kidney cysts. The largest cyst in the right kidney measures 4. 2 cm and the largest cyst in the left kidney measures 3.9 cm. These do not require further workup. There are no solid renal masses. No calculi. No hydronephrosis nor hydroureter.. ABDOMINAL AORTA: See above LYMPH NODES: There is no retroperitoneal nor para-aortic adenopathy. No obvious mesenteric masses. ABDOMINAL WALL: No evidence of significant anterior abdominal wall hernia. There is a fluid reservoi r in the right rectus abdominus muscle which is related to penile implant device. GI: There is evidence of partial sigmoid resection. No abnormal findings at this level. Also no bow el obstruction evident at this level nor more proximally. There are no ischemic appearing bowel loop s. PELVIS: LYMPH NODES: There is no intrapelvic nor inguinal adenopathy. GI: No evidence of appendicitis.No evidence of sigmoid diverticulitis. URINARY BLADDER: Bladder unremarkable. Prostate smaller surgically absent. REPRODUCTIVE: Penile implant device. OSSEOUS: Nonacute appearing T12 superior endplate compression fracture. No acute fractures. No sign ificant osseous lesions. IMPRESSION: 1. There is an infrarenal abdominal aortic aneurysm with maximum external diameter of 3.6 cm. There is also arterial megaly of the common iliac arteries bilaterally. 2. No evidence of critical stenosis in the iliac and femoral arteries nor within the popliteal arteri es and there is no evidence of popliteal artery aneurysm. 3. Poor flow noted in the distal calves but this may be related to bolus timing/image acquisition medical education coordinator rdination. 4. Collapsed lung noted in the left lower lobe. This was not evident on prior CT scan of April 2. Recommend chest CT scan to rule out malignancy. Other significant findings as above. RADIATION DOSE DELIVERED: 1,641.1mGy.cm Total DLP DATA REPOSITORY: All CT scans at this facility are submitted to the National Radiology Data Registry (NRDR) Dose Index Registry (DIR) with the [employer] ([employer]). RADIATION OPTIMIZATION: All CT scans at this facility use at least one of these dose optimization te chniques: automated exposure control; mA and/or kV adjustment per patient size (includes targeted exa ms where dose is matched to clinical indication); or iterative reconstruction.
--- NOTE | 2024-01-20 20:14 | ED.GENADUL_ITS ---
Discharge Plan Disposition Patient Disposition: Home Condition: Improving Discharge Details Clinical Impression: Claudication, Peripheral vascular disease Primary Care Provider: Beena Lovett ED Provider: Jorge Arizmendi Home Meds and New Rx's Prescriptions: New aspirin 81 mg capsule 81 mg PO DAILY 30 Days Qty: 30 0RF No Action atorvastatin 10 mg Tablet 10 mg PO HS Stiolto Respimat 2.5-2.5 mcg/actuation Mist 1 puff Inhalation BID ergocalciferol (vitamin D2) 50,000 unit Capsule 1 cap PO DIRECTED Rx Instructions: weekly multivitamin with minerals Tablet 1 tab PO QAM lisinopril 10 mg Tablet 10 mg PO DAILY albuterol sulfate 90 mcg/actuation Aerosol Powdr Breath Activated 2 inh INHALATION Q4H PRN hydrochlorothiazide 25 mg Tablet 25 mg PO DAILY Discharge Instructions Instructions: Peripheral artery disease and claudication Additional Instructions: Please follow-up with your primary care physician as well as vascular surgical team whether that be at [facility] or [facility]. Please return to the emerged part for any worsening symptoms. I have started you on daily aspirin. HPI General Date/Time Provider Initiated Documentation: 01/20/24 19:37 . HPI Narrative: 73-year-old male presents with painful left foot over the last couple of days, able to walk however very uncomfortable to bear weight on his left heel, denies history of thromboembolic disease vascular disease or arrhythmias Related Data Home Medications Medication Instructions Recorded Confirmed atorvastatin 10 mg tablet 10 mg PO HS 05/03/18 01/20/24 ergocalciferol (vitamin D2) 1,250 1 cap PO DIRECTED 05/03/18 01/20/24 mcg (50,000 unit) capsule multivitamin with minerals 1 tab PO QAM 05/03/18 01/20/24 tiotropium 2.5 mcg-olodaterol 2.5 1 puff inhalation BID 05/03/18 01/20/24 mcg/actuation mist for inhalation (Stiolto Respimat) albuterol sulfate 90 mcg/actuation 2 inh inhalation Q4H PRN 12/30/20 01/20/24 breath activated powder inhaler lisinopril 10 mg tablet 10 mg PO DAILY 12/30/20 01/20/24 hydrochlorothiazide 25 mg tablet 25 mg PO DAILY 06/09/21 01/20/24 aspirin 81 mg capsule 81 mg PO DAILY 30 days #30 caps 01/21/24 Previous Rx's Medication Instructions Recorded aspirin 81 mg capsule 81 mg PO DAILY 30 days #30 caps 01/21/24 Allergies Allergy/AdvReac Type Severity Reaction Status Date / Time No Known Allergies Allergy Unverified 01/20/24 18:09 General Stated Complaint: Orthopedic STEFFEN: 3 Review of Systems Narrative: Review of Systems Constitutional: negative Eyes: negative ENT: negative Cardiovascular: negative Respiratory: negative Gastrointestinal: negative : negative Musculoskeletal: Left heel pain Skin: negative Neurologic: negative Psych: negative Exam Narrative Exam Narrative: Physical Examination General: alert, awake, cooperative, resting comfortably, no acute distress HEENT: normocephalic, atraumatic; PERRL, EOM intact, conjunctiva normal; no nasal discharge; moist mucous membranes, oral and pharyngeal mucosa normal, tolerating secretions Neck: supple, trachea midline; full ROM Chest: normal to inspection Skin: no lesions, rashes or trauma appreciated Neuro: AAOx3, normal speech, moving all extremities Extremities: Warm well-perfused left lower extremity, soft compartments DP pulse intact, tenderness over calcaneus, no tenderness over Achilles tendon, dorsiflexion and extension of ankle and foot intact, patient endorses is slight decrease sensation to light touch pretibial soft tissue Psych: Appropriate mood and affect Course Vital Signs Vital signs: Vital Signs Temperature 36.6 C 01/20/24 18:06 Pulse 97 H 01/20/24 18:06 Respiratory Rate 16 01/20/24 18:06 Blood Pressure 116/67 01/20/24 18:06 Pulse Oximetry 92 01/20/24 18:06 Temperature 36.6 C 01/20/24 18:06 Pulse 97 H 01/20/24 18:06 Respiratory Rate 16 01/20/24 18:06 Blood Pressure 116/67 01/20/24 18:06 Pulse Oximetry 92 01/20/24 18:06 Oxygen Delivery Method Room Air 01/20/24 18:06 Oxygen Flow Rate 0 01/20/24 18:06 Pain Level 8 01/20/24 18:06 Medical Decision Making 73-year-old male presents with atraumatic left heel pain over the last day, severe pain affecting full weightbearing, no ankle discomfort no Achilles discomfort, no evidence of trauma, dorsiflexion and plantarflexion of foot intac t, DP pulse intact warm well-perfused slight decrease sensation to light touch pretibial soft tissue, bedside ultrasound negative for DVT of left lower extremity however patient does have what appears to be extensive plaque in the arterial femoral system on bedside ultrasound, consider claudication given pain out of proportion to examination versus arterial occlusion in distal left lower extremity lower suspicion for arterial dissection muscles consider developing neuropathy versus gout versus heel spur versus plantar fasciitis low suspicion for Achilles rupture given history and physical will obtain CTA left lower extremity will provide analgesia will obtain basic labs disposition pending reassessment 12: 32 patient resting comfortably no acute distress warm well-perfused extremity DP pulse intact, evidence of peripheral vascular disease left lower extremity with areas of decreased flow followed by reconstitution, counseled patient extensively regarding likely episodes of claudication. Patient will follow-up closely with [facility] vascular team otherwise I have placed a referral for [facility] vascular evaluation, will start patient on aspirin patient is already on atorvastatin. Will also follow close with primary care physician. Home care instructions and strict return precautions given for any change in clinical status. Patient had incidental pulmonary findings on CT, no respiratory symptoms at this time patient follows closely with pulmonary rehab. Quality:SDOH Health Related Social Needs: No Data to Display PFSH All Active Problems (Updated 01/21/24 @ 00:34 by Jorge Arizmendi MD) Peripheral vascular disease (Chronic) Claudication (Acute) Personal history of nicotine dependence (Acute) Narrowing of airway (Acute) 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 (Acute) KAY (acute kidney injury) (Acute) DVT prophylaxis (Acute) Hypertension (Chronic) COPD (chronic obstructive pulmonary disease) (Chronic) Hypotension (Acute) Medical History (Updated 01/21/24 @ 00:34 by Jorge Arizmendi MD) Pulmonary nodule Social History Smoking/Tobacco Use Status: Former Tobacco Use Smoking risk assessment performed?: Yes Alcohol Intake: never Drug use: Never Substance use type: does not use Do you feel safe at home: Yes Do you feel safe in your relationship?: Yes
[2024-01-20] MEDS: ACETAMINOPHEN 1,000 MG/100 ML BTL 400 MG IVPB (20:31)
[2024-01-20] MEDS: HYDROmorphone 2 MG/ML SYR 0.5 MG IVP (20:32)
[2024-01-20 20:38] LABS: Abs Immature Grans 0.04 10^3/uL (0.0-0.06); Absolute Basophil Count 0.05 10^3/uL (0.0-0.2); Absolute Eosinophil Count 0.21 10^3/uL (0.0-0.7); Absolute Lymphocyte Count 1.11 10^3/uL (1.2-3.4); Absolute Monocyte Count 1.12 10^3/uL (0.1-0.8); Absolute Neutrophil Count 7.08 10^3/uL (1.2-6.7); Basophils % 0.5 %; Eosinophils % 2.2 %; HCT 40.2 % (40.0-50.0); HGB 12.7 g/dL (13.5-17.5); Immature Grans % 0.4 %; Lymphocytes % 11.6 %; MCH 28.9 pg (27.0-33.0); MCHC 31.6 % (32.0-36.0); MCV 91 fL (80-95); Monocytes % 11.7 %; Neutrophils % 73.6 %; Platelet Count 355 10^3/uL (130-400); RDW 13.5 % (11.8-14.1); WBC 9.61 10^3/uL (4.4-10.8)
[2024-01-20] MEDS: Normal Saline 1,000 ML 1000 ML IV (20:47)
[2024-01-20 20:49] LABS: PTT Activated 22.7 sec (23.6-32.8)
[2024-01-20 20:51] LABS: INR 1.1 (0.9-1.1); Prothrombin Time 10.7 sec (9.1-11.1)
[2024-01-20 21:16] LABS: ALT 33 U/L (16-63); AST 26 U/L (15-37); Albumin 3.3 g/dL (3.4-5.0); Alkaline Phosphatase 80 U/L (46-116); Anion Gap 8.6 mmol/L (3-11); BUN 9 mg/dL (7-18); Bilirubin, Total 0.41 mg/dL (0.2-1.0); CO2 27.4 mmol/L (21.0-32.0); CREATININE 1.2 mg/dL (0.70-1.30); Calcium 9.1 mg/dL (8.5-10.1); Chloride 105 mmol/L (98-107); Estimated GFR 63.85 (mL/min/1.73m2); Glucose 87 mg/dL (74-106); Potassium 4.5 mmol/L (3.5-5.1); Sodium 141 mmol/L (136-145); Total Protein 7.2 g/dL (6.4-8.2)
[2024-01-20 21:28] LABS: Creatine Kinase 135 U/L (39-308)
[2024-01-20] MEDS: Omnipaque 350 MG/ML 100 ML BTL IJ (21:29)
[2024-01-20] MEDS: Omnipaque 350 MG/ML 50 ML BTL IJ (21:30)
[2024-01-20] MEDS: Normal Saline - Diluent 50 ML VIAL IJ ×2 (21:31→21:33)
[2024-01-20] MEDS: Normal Saline Flush 10 ML SYR IVP (21:32)
--- NOTE | 2024-01-21 00:07 | DI.VRAD_ITS ---
PROCEDURE INFORMATION: Exam: CTA Abdominal Aorta and Bilateral Lower Extremities (Run-off) With Contrast Exam date and time: 01/20/2024 9:36 PM Age: 73 years old Clinical indication: Foot pain; Left; Patient HX: Severe L heel pain, atrial plaque seen on US TECHNIQUE: Imaging protocol: Computed tomographic angiography of the of the abdominal aorta, pelvis and bilateral lower extremities with contrast. 3D rendering (Not supervised by radiologist): MIP and/or 3D reconstructed images were created by the technologist. Radiation optimization: All CT scans at this facility use at least one of these dose optimization techniques: automated exposure control; mA and/or kV adjustment per patient size (includes targeted exams where dose is matched to clinical indication); or iterative reconstruction. Contrast material: OMNIPAQUE 350; Contrast volume: 150 ml; Contrast route: INTRAVENOUS (IV); COMPARISON: PT PET CT STANDARD SCAN SKULL BASE KEVIN THIGH 10/25/2021 11:13 AM FINDINGS: Tubes, catheters and devices: Penile implant in place with reservoir balloon in right anterior pelvic wall. No adjacent inflammatory changes. Aorta: Moderate atherosclerotic disease in the aorta. Mild aneurysmal dilatation of infrarenal aorta measuring 3.5 x 3.4 cm. Great vessels off aortic arch: Atherosclerotic calcification is and left common carotid artery with areas of moderate stenosis. No evidence of occlusion. Celiac trunk and mesenteric arteries: Atherosclerotic calcifications in proximal superior mesenteric artery with focal area of moderate to severe stenosis. No evidence of occlusion. Renal arteries: No occlusion or significant stenosis. Right iliac arteries: No occlusion or significant stenosis. Right femoral/popliteal arteries: No occlusion or significant stenosis. Right infrapopliteal arteries: No occlusion or significant stenosis. Left iliac arteries: No occlusion or significant stenosis. Left femoral/popliteal arteries: Atherosclerotic disease with moderate to severe stenosis in proximal left superficial femoral artery. No evidence of occlusion. Atherosclerotic disease with moderate to severe stenosis in left popliteal artery. No evidence of occlusion. Left infrapopliteal arteries: No occlusion or significant stenosis. Other arteries: Diminished flow is seen in distal anterior tibialis artery with complete lack of flow in the distal segment. Mild reconstitution of flow is seen in the proximal dorsalis pedis with complete absence of flow in the mid segment and reconstitution of flow in the distal segment. Left posterior tibialis and medial plantar artery are patent. Lungs: Moderate size very dense infiltrate in the dependent portion of left lower lobe. Scarring in bilateral lung bases. Liver: Simple appearing cyst in the liver measuring 3.6 cm. This lesion appears benign. No followup imaging is recommended. No mass lesion is seen in the liver. Gallbladder and biliary ducts: Unremarkable. No calcified stones. No ductal dilation. Pancreas: Unremarkable. No mass. No ductal dilation. Spleen: Normal. No splenomegaly. Adrenal glands: Normal. No mass. Kidneys and ureters: Multiple homogeneous attenuation Bosniak type 1 simple cysts are seen in bilateral kidneys. These lesions appear benign. No follow-up is necessary. Largest cyst measures 4.5 cm on the right . Kidneys are otherwise unremarkable. No hydronephrosis or hydroureter or evidence of nephrolithiasis. No mass lesion seen. Stomach and bowel: No areas of wall thickening in the large bowel. No evidence of large bowel obstruction. No pericolonic inflammatory changes to suggest acute diverticulitis. No wall thickening in the small bowel. No evidence of small bowel obstruction. Appendix: No evidence of appendicitis. Urinary bladder: Unremarkable. No mass. Reproductive: Unremarkable as visualized. Intraperitoneal space: No free fluid or fluid collections. No inflammatory changes. No free air. Lymph nodes: No lymphadenopathy. Bones/joints: No acute fracture. No dislocation. Soft tissues: Unremarkable. Other findings: Atherosclerotic disease with areas of moderate to severe stenosis in proximal and mid peroneal artery. No evidence of occlusion. IMPRESSION: 1. Moderate size very dense infiltrate in the dependent portion of left lower lobe. 2. Atherosclerotic calcifications in proximal superior mesenteric artery with focal area of moderate to severe stenosis. No evidence of occlusion. 3. Atherosclerotic calcification is and left common carotid artery with areas of moderate stenosis. No evidence of occlusion. 4. Atherosclerotic disease with moderate to severe stenosis in proximal left superficial femoral artery. No evidence of occlusion. 5. Atherosclerotic disease with moderate to severe stenosis in left popliteal artery. No evidence of occlusion. 6. Diminished flow is seen in distal anterior tibialis artery with complete lack of flow in the distal segment. Mild reconstitution of flow is seen in the proximal dorsalis pedis with complete absence of flow in the mid segment and reconstitution of flow in the distal segment. 7. Atherosclerotic disease with areas of moderate to severe stenosis in proximal and mid peroneal artery. No evidence of occlusion. Dictated and Authenticated by: Madina Abraham MD. Ordering:ARCHIE Patel MD
[2024-01-21] MEDS: Aspirin 81 MG CHEW PO (00:55)
[2024-01-21 01:04] VITALS: BP 131/98; PULSE 88; RESP 22; TEMP 36.4; O2SAT 93
--- NOTE | 2024-01-21 01:51 | NUR.NOTE ---
Addendum entered by Colleen Mix 01/21/24 09:25: Patients called asking about the referral to [facility]. [facility] has the referral, call transferred to them. Original Note: Referral to Care Management to refer patient to [facility] for f/u within a week for LLE Claudication/PVD.Nursing Note:
== END 2024-01-21 01:06 | disposition home or self-care (01) ==
PROVIDERS: Emergency Provider Emergency Medicine
DX: I73.9 Peripheral vascular disease, unspecified (principal)
CPT/HCPCS: 36415; 75635; 80053; 82550; 96361; 96365; 96375; 99285; 83605; 85025; 85610; 85730; J0131; J1170; J3490; Q9967

== ENCOUNTER 2024-02-14 10:00 | Outpatient (RCR) | payer SELFPAY ==
[2024-02-12 11:14] VITALS: BP 133/80; PULSE 77; O2SAT 96
[2024-02-14 10:00] VITALS: BP 133/73; PULSE 81; O2SAT 91
== END 2024-02-20 23:59 | disposition home or self-care (01) ==
LOC: CR 10:00
PROVIDERS: Visit Provider Internal Medicine Cardiovascular Disease
DX: R69 Illness, unspecified (principal)

== ENCOUNTER 2024-03-20 10:04 | Outpatient (RCR) | payer SELFPAY ==
[2024-02-21 00:17] VITALS: BP 133/73; PULSE 81
[2024-02-21 09:48] VITALS: BP 126/74; PULSE 92; O2SAT 92
[2024-02-26 13:48] VITALS: BP 150/89; PULSE 78; O2SAT 90
[2024-02-28 10:33] VITALS: BP 142/95; PULSE 88; O2SAT 91
[2024-03-04 09:52] VITALS: BP 154/81; PULSE 71; O2SAT 90
[2024-03-06 10:20] VITALS: BP 135/81; PULSE 88; O2SAT 90
[2024-03-13 09:57] VITALS: BP 135/77; PULSE 84; O2SAT 90
[2024-03-18 10:00] VITALS: BP 135/83; PULSE 79; O2SAT 92
[2024-03-20 10:16] VITALS: BP 147/84; PULSE 79; O2SAT 96
== END 2024-03-22 23:59 | disposition home or self-care (01) ==
LOC: CR 10:04
PROVIDERS: Visit Provider Internal Medicine Cardiovascular Disease
DX: R69 Illness, unspecified (principal)

== ENCOUNTER 2024-04-15 10:19 | Outpatient (RCR) | payer SELFPAY ==
[2024-03-23 00:08] VITALS: BP 133/73; PULSE 81
[2024-03-25 10:25] VITALS: BP 141/90; PULSE 80; O2SAT 92
[2024-03-27 10:11] VITALS: BP 120/77; PULSE 85; O2SAT 94
[2024-04-01 10:10] VITALS: BP 143/77; PULSE 77; O2SAT 93
[2024-04-03 10:27] VITALS: BP 125/78; PULSE 75; O2SAT 93
[2024-04-15 10:20] VITALS: BP 154/76; PULSE 83
== END 2024-04-21 23:59 | disposition home or self-care (01) ==
LOC: CR 10:19
PROVIDERS: Visit Provider Internal Medicine Cardiovascular Disease
DX: R69 Illness, unspecified (principal)
CPT/HCPCS: S9472

== ENCOUNTER 2024-04-26 19:22 | Inpatient (IN) | payer OTHER, SELFPAY ==
[2024-04-26] VITALS (34 sets, daily range): BP systolic 139–178; BP diastolic 64–91; PULSE 72–85; RESP 16–24; TEMP 36.3; O2SAT 3–97
--- NOTE | 2024-04-26 20:01 | ED.GENADUL_ITS ---
Discharge Plan Disposition Patient Disposition: Admit to [facility] Condition: Fair Discharge Details Chief Complaint: Chest/Rib Clinical Impression: Fracture, ribs, Hypoxia Primary Care Provider: Beena Lovett ED Provider: Gage Merino Home Meds and New Rx's Prescriptions: No Action atorvastatin 10 mg Tablet 10 mg PO HS Stiolto Respimat 2.5-2.5 mcg/actuation Mist 1 puff Inhalation BID ergocalciferol (vitamin D2) 50,000 unit Capsule 1 cap PO DIRECTED Rx Instructions: weekly multivitamin with minerals Tablet 1 tab PO QAM lisinopril 10 mg Tablet 10 mg PO DAILY albuterol sulfate 90 mcg/actuation Aerosol Powdr Breath Activated 2 inh INHALATION Q4H PRN hydrochlorothiazide 25 mg Tablet 25 mg PO DAILY aspirin 81 mg capsule 81 mg PO DAILY HPI General Date/Time Provider Initiated Documentation: 04/26/24 19:31 . Limitations to Documentation: no limitations . Information obtained by: patient . HPI Narrative: 74-year-old gentleman with past medical history of COPD, KAY, oxygen dependent PRN at 2 L presents for evaluation of left-sided rib pain after a fall. Reports just prior to arrival he had fallen over some equipment landing onto the left side of his chest. He reports pain in the left posterior ribs. Pain worse with taking deep breaths. Has not tried any medication prior to arrival. Did not have any other injuries with the fall. Related Data Home Medications ?Medication ?Instructions ?Recorded ?Confirmed atorvastatin 10 mg tablet 10 mg PO HS 05/03/18 04/26/24 ergocalciferol (vitamin D2) 1,250 1 cap PO DIRECTED 05/03/18 04/26/24 mcg (50,000 unit) capsule multivitamin with minerals 1 tab PO QAM 05/03/18 04/26/24 tiotropium 2.5 mcg-olodaterol 2.5 1 puff inhalation BID 05/03/18 04/26/24 mcg/actuation mist for inhalation (Stiolto Respimat) albuterol sulfate 90 mcg/actuation 2 inh inhalation Q4H PRN 12/30/20 04/26/24 breath activated powder inhaler lisinopril 10 mg tablet 10 mg PO DAILY 12/30/20 04/26/24 hydrochlorothiazide 25 mg tablet 25 mg PO DAILY 06/09/21 04/26/24 aspirin 81 mg capsule 81 mg PO DAILY 04/26/24 04/26/24 Allergies Allergy/AdvReac Type Severity Reaction Status Date / Time No Known Allergies Allergy Unverified 04/26/24 19:29 General Stated Complaint: Chest/Rib STEFFEN: 2 Exam Narrative Exam Narrative: Review of Systems: All systems reviewed & are unremarkable except as noted in HPI and below Well-developed, appears uncomfortable NCAT RRR, no murmur Unlabored respiratory effort, O2 sat on room air 87% Left posterior chest wall tender to palpation Nondistended abdomen , soft nontender Course Vital Signs Vital signs: Vital Signs Temperature 36.3 C L 04/26/24 19:24 Pulse 77 04/26/24 19:24 Respiratory Rate 18 04/26/24 19:24 Blood Pressure 167/81 H 04/26/24 19:24 Pulse Oximetry 90 L 04/26/24 19:24 Temperature 36.3 C L 04/26/24 19:24 Temperature Source Oral 04/26/24 19:24 Pulse 75 04/26/24 19:47 Pulse 81 04/26/24 19:47 Respiratory Rate 22 04/26/24 19:47 Blood Pressure 152/88 H 04/26/24 19:47 Blood Pressure Mean 105 04/26/24 19:47 Blood Pressure Position Sitting 04/26/24 19:24 Pulse Oximetry 92 04/26/24 19:59 Oxygen Delivery Method Room Air 04/26/24 19:24 Oxygen Flow Rate 0 04/26/24 19:24 Pain Level 9 04/26/24 19:24 Medical Decision Making Emergent evaluation of left chest wall trauma. Initial differential includes fracture, contusion, COPD exacerbation. Patient's O2 sat is below normal range, the patient does report that he is occasionally supposed to be using 2 L of oxygen. He is not have any wheezing on examination or signs of respiratory distress. I do not feel that this is a COPD exacerbation, he seems to be having some splinting and discomfort from the rib trauma. Will get CT imaging to evaluate for possible fracture or pulmonary contusion. He has been placed on 2 L of oxygen and is maintaining normal saturation for him. CT chest radiology report reviewed and noted 3 rib fractures 7-9 with atelectatis already noted. Given patient's comorbidities and 3 rib fractures, I did discuss with general surgery, the patient will be admitted to her service for further management. Quality:SDOH Health Related Social Needs: No Data to Display PFSH All Active Problems (Updated 04/26/24 @ 22:38 by Gage Merino MD) Hypoxia (Acute) Fracture, ribs (Acute) Atelectasis of left lung (Acute) Multiple fractures of ribs of left side (Acute) Lung contusion (Acute) Aortic aneurysm (Chronic) Atherosclerosis (Acute) PAD (peripheral artery disease) (Acute) Colon cancer (Chronic) Coronary artery calcification seen on CAT scan (Acute) Hyperlipemia (Acute) Personal history of nicotine dependence (Acute) Narrowing of airway (Acute) 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 (Acute) DVT prophylaxis (Acute) Hypertension (Chronic) COPD (chronic obstructive pulmonary disease) (Chronic) Medical History (Updated 04/26/24 @ 22:38 by Gage Merino MD) KAY (acute kidney injury) Hypotension Pulmonary nodule Surgical History (Updated 04/26/24 @ 22:05 by Brenda Padilla DO) S/P left colectomy 2009 for colon cancer Hx of radical prostatectomy 2018 prostate cancer Social History Smoking/Tobacco Use Status: Former Tobacco Use Smoking risk assessment performed?: Yes Alcohol Intake: never Drug use: Never Substance use type: does not use Do you feel safe at home: Yes Do you feel safe in your relationship?: Yes
--- NOTE | 2024-04-26 20:07 | DI.CT_ITS ---
Exam(s) CT CHEST WO EXAM: CT CHEST WO CLINICAL HISTORY: eval rib fx, left chest wall trauma TECHNIQUE: Imaging Protocol: Axial computed tomography images with coronal and sagittal reformatted images were created and reviewed CONTRAST MATERIAL: Intravenous: Omnipaque 350 Contrast volume:structured data ml. COMPARISON: CT CT CHEST W from 07/26/2023 CR,XR XR CHEST 2V PA LATERAL from 04/26/2024 FINDINGS: Pulmonary parenchyma: Complete atelectasis of the left lower lobe, unchanged from prior exams. No do minant measurable mass. Severe emphysematous changes in the upper lobes. Fibrotic changes, greater i n lower lobes. Stable small scattered small pulmonary nodules. No suspicious nodules. Tracheobronchial tree: Obstruction of left lower lobe bronchi. No discrete visible mass. Stable fro m prior. Mediastinum and Felicitas: No dominant adenopathy or fluid collection. Pleura: No effusion. No pneumothorax. Heart: The heart is not dilated. Severe coronary artery calcifications are seen. Aorta: Thoracic aorta non-dilated. Mild atherosclerotic changes. Pulmonary arteries: No gross evidence of emboli. Upper abdomen: No acute findings. Right renal cyst and liver cyst. Bones: Acute fractures of the the left 7th 8th and 9th ribs. Old left 8th and through 10th rib fra ctures. Old right 6th rib fracture. Old mild compression fractures of T2, T3 and T12.Degenerative c hanges in the spine. Soft tissues: Unremarkable. IMPRESSION: Acute left rib fractures. No evidence of pneumothorax or pleural effusion. Complete atelectasis of the left lower lobe is stable from prior exam. Patient has known history of lung CA. No evidence of metastatic disease. RADIATION DOSE DELIVERED: Total DLP DATA REPOSITORY: All CT scans at this facility are submitted to the National Radiology Data Registry (NRDR) Dose Index Registry (DIR) with the [employer] (ACR). RADIATION OPTIMIZATION: All CT scans at this facility use at least one of these dose optimization te chniques: automated exposure control; mA and/or kV adjustment per patient size (includes targeted exa ms where dose is matched to clinical indication); or iterative reconstruction.
[2024-04-26] MEDS: Acetaminophen 500 MG TAB 1000 MG PO (20:19)
[2024-04-26] MEDS: Lidocaine 5% Patch 1 PATCH TP (20:19)
--- NOTE | 2024-04-26 21:44 | DI.VRAD_ITS ---
PROCEDURE INFORMATION: Exam: CT Chest Without Contrast; Diagnostic Exam date and time: 04/26/2024 7:48 PM Age: 74 years old Clinical indication: Other: Eval rib FX, left chest wall trauma TECHNIQUE: Imaging protocol: Diagnostic computed tomography of the chest without contrast. 3D rendering (Not supervised by radiologist): MIP and/or 3D reconstructed images were created by the technologist. COMPARISON: CT CHEST W 07/26/2023 9:57 AM FINDINGS: Lungs: Severe diffuse emphysema. Complete atelectasis of the left lower lobe, also present on the comparison exam from July 26, 2023, etiology not demonstrated. Otherwise, no pulmonary consolidation. 5 mm right lower lobe pulmonary nodule on image 182 of series 2, also present on the comparison exam from July 26, 2023. Pleural spaces: No pleural effusion or pneumothorax. Heart: Normal-sized heart. Bulky coronary artery calcification. Lymph nodes: Scattered small mediastinal lymph nodes. Vasculature: No thoracic aortic aneurysm. Liver: 3 cm indeterminate hypoattenuating hepatic lesion measuring 12 Hounsfield units density on image 257 of series 2, likely a cyst. Kidneys: 3.8 cm partially visualized right renal cyst. Bones/joints: Acute fractures through the lateral aspect of the left 7th and posterolateral aspect of the left 8th and 9th ribs. Old fractures of the posterior aspect of the left 8th, 9th, and 10th ribs. Lower ribs partially excluded from view and incompletely evaluated. Otherwise, no additional acute fracture seen. Old superior endplate compression deformities at T2 and T3 with mild loss of central vertebral height. Old superior endplate compression fracture deformity at T12 with moderate loss of anterior vertebral height, also seen on the comparison exam from July 26, 2023. Soft tissues: No gross soft tissue mass or fluid collection seen in the chest wall. IMPRESSION: 1. Acute fractures through the lateral aspect of the left 7th rib and through the posterolateral aspect of the left 8th and 9th ribs. 2. No acute visceral injury seen in the chest. 3. Severe diffuse emphysema. 4. Complete atelectasis of the left lower lobe, also present on the comparison exam from July 26, 2023. Although the etiology of this finding is not demonstrated, further evaluation is recommended to exclude an obstructing endobronchial mass, nodule, polyp, or foreign body, particularly in presumed smoker. 5. 5 mm right lower lobe pulmonary nodule, also seen on the comparison exam from July 26, 2023. Dictated and Authenticated by: Dennis Everett MD. Ordering:HAYDE Veronica MD
--- NOTE | 2024-04-26 21:52 | HPE_ITS ---
Date of service: 04/27/24 Time of Service: 15:24 Assessment and Plan Assessment and plan (1) Hypertension: Status: Chronic Assessment and plan: Patient has not been taking the lisinopril and Hydrocort chlorothiazide. As previously ordered at home for BP. These medications are currently being held and we will monitor blood pressure (2) KAY (acute kidney injury): (3) 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: Status: Acute Assessment and plan: treated XRT in 2022 -Findings on CT that were done on 04/26, noted below, are similar to findings on the CT that he had in April 2023 following his radiation treatment for cancer at [facility]. He had a bronc and biopsies to evaluate the left lower lobe. 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 Further cancer follow-up has been done at [facility] and I do not have access to these records. There is no sign of recurrence of his cancer on CT today. I do not feel that this represents any change from prior CTs and should be followed up for continued cancer surveillance at the [facility]. CT . Complete atelectasis of the left lower lobe, also present on the comparison exam from July 26, 2023. Although the etiology of this finding is not demonstrated, further evaluation is recommended to exclude an obstructing endobronchial mass, nodule, polyp, or foreign body, particularly in presumed smoker. (4) COPD (chronic obstructive pulmonary disease): Status: Chronic Assessment and plan: The patient has a known history of severe COPD and is on 2 L of oxygen at home Qualifiers: COPD type: emphysema (5) Personal history of nicotine dependence: Status: Acute Assessment and plan: not smoking (6) Pulmonary nodule: (7) Hyperlipemia: Status: Acute (8) Coronary artery calcification seen on CAT scan: Status: Acute (9) Colon cancer: Status: Chronic Assessment and plan: For the follow-up was done at the [facility] Qualifiers: Colon location: sigmoid Qualified Code(s): C18.7 - Malignant neoplasm of sigmoid colon (10) S/P left colectomy: (11) Hx of radical prostatectomy: Assessment and plan: Further follow-up is done at the [facility] (12) PAD (peripheral artery disease): Status: Acute (13) Atherosclerosis: Status: Acute (14) Aortic aneurysm: Status: Chronic Assessment and plan: We discussed the importance of taking his blood pressure medication to prevent further growth of his aneurysm Qualifiers: Abdominal aorta location: infrarenal aorta Aortic location: abdominal aorta Presence of rupture: without rupture Qualified Code(s): I71.43 - Infrarenal abdominal aortic aneurysm, without rupture (15) Lung contusion: Status: Acute Qualifiers: Encounter type: initial encounter Laterality: left Qualified Code(s): S27.321A - Contusion of lung, unilateral, initial encounter (16) Multiple fractures of ribs of left side: Status: Acute Assessment and plan: IMPRESSION: 1. Acute fractures through the lateral aspect of the left 7th rib and through the posterolateral aspect of the left 8th and 9th ribs. Rib blocks done by anesthesia did provide significant pain relie Continue with multimodality pain medication regimen Continue to use Acapella. I did discuss with the patient that he is at high risk for pneumonia given his history of COPD/chronic changes from radiation and the new rib fractures. Encouraged him to be up walking and doing I-S regularly (17) Atelectasis of left lung: Status: Acute Assessment and plan: Patient has a known history of persistent atelectasis of the left lower lobe of the logs since his radiation treatment for non-small cell lung cancer. [facility] and [facility] have no records of this. His last CT was at [facility] and this was in April 2023. He had a [facility] done the left lower lobe, and the bronchoscopy showed only scarring and bronchial stenosis. This document was created with voice activated software and may contain errors. 25 mins spent in direct pt care and 35 in non face to face time I did discuss the case with nursing and with anesthesia. History of Present Illness History of Present Illness Chief Complaint: fallen over some equipment landing onto the left side of his chest. Narrative: Patient had a fall at home. He fell over his drill press in the garage. He denies any loss of consciousness. He did strike his head. He has complete memory of the event. He has a small area of ecchymosis on his left elbow. He has a small superficial abrasion on his left knee. And he has 3 rib fractures on the right. He did get rib blocks with anesthesia today. The patient stated is definitely made a decrease in the amount of pain that he has been having. He is able to cough and mobilize his secretions. He is currently on 4 L of oxygen. He does have a lot of rhonchorous breath sounds on the left side-but I believe this is longstanding in nature and due to the treatment from his non-small cell lung cancer with left to bronchial stenosis and some nonirrigated areas in the left lower lobe. This is similar to his last CAT scan done at [facility]. 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 He also has severe underlying COPD and is on 2 L of oxygen at home. He is currently on 4 L right now and is resting comfortably. Again he is able to mobilize secretions He also has a history of peripheral arterial disease and atherosclerosis from longstanding smoking. He does have a known history of a AAA that is 3.8 cm. We discussed that the best thing he can do for his AAA is to make sure that his blood pressure is under good control. Patient has stopped smoking. He has not been taking his blood pressure medication. I did review his [facility] chart. I did personally review all his films. Review of Systems All systems reviewed & are unremarkable except as noted in HPI and below Constitutional Comments: - Patient is hard of hearing He denies frequent falls He is a dentulous Eyes Eyes: Denies blurry vision, Denies change in vision, Denies diplopia and Denies other visual disturbances ENT Ears, Nose, Mouth, and Throat: Reports abnormal hearing, Denies dysphagia, Denies facial pain, Reports hearing loss, Denies hoarseness, Denies neck pain, Denies odynophagia and Reports disequilibrium Cardiovascular Cardiovascular: Reports dyspnea on exertion Comments: Patient was having some substernal chest pain earlier this morning. We did do a EKG and troponins that were negative. Respiratory Respiratory: Reports cough and Reports dyspnea on exertion Comments: Severe emphysema at baseline. He is on 2 L of oxygen at home Pain in anterior chest wall from rib fractures Gastrointestinal Gastrointestinal: Denies abdominal pain, Denies melena, Denies dysphagia, Denies odynophagia, Denies vomiting and Denies hematemesis Genitourinary Genitourinary: Denies hematuria Musculoskeletal Musculoskeletal: Denies neck pain Comments: The patient is able to move all joints as he was similar to prior to the accident. He has a left rotator cuff injury that he has been going to PT for. He has a ecchymotic area on his left elbow but has good range of motion for the left elbow. No pain in any of the other large or small joints. Integumentary/Breasts Comments: Ecchymosis left elbow and abrasion left knee Neurologic Neurologic: Reports abnormal hearing and Reports disequilibrium Comments: Patient denies frequent falls Patient denies loss of consciousness or loss of memory for the event [place] Coma Scale is 15 Hematologic/Lymphatic Comments: He is on baby aspirin daily PFSH All Active Problems Hypoxia (Acute) Fracture, ribs (Acute) Atelectasis of left lung (Acute) Multiple fractures of ribs of left side (Acute) Lung contusion (Acute) Aortic aneurysm (Chronic) Atherosclerosis (Acute) PAD (peripheral artery disease) (Acute) Colon cancer (Chronic) Coronary artery calcification seen on CAT scan (Acute) Hyperlipemia (Acute) Personal history of nicotine dependence (Acute) Narrowing of airway (Acute) 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 (Acute) DVT prophylaxis (Acute) Hypertension (Chronic) COPD (chronic obstructive pulmonary disease) (Chronic) Medical History KAY (acute kidney injury) Hypotension Pulmonary nodule Surgical History S/P left colectomy 2009 for colon cancer Hx of radical prostatectomy 2018 prostate cancer Social History Smoking/Tobacco Use Status: Former Tobacco Use Quit Date: 07/23/99 Tobacco: How many years used: 40 Smoking risk assessment performed?: Yes Alcohol Intake: never Drug use: Never Substance use type: does not use Housing: house Do you feel safe at home: Yes Do you feel safe in your relationship?: Yes Meds Allergies and Home Medications Allergies Allergy/AdvReac Type Severity Reaction Status Date / Time No Known Allergies Allergy Unverified 04/26/24 19:29 Home Medications ?Medication ?Instructions ?Recorded ?Confirmed ?Type atorvastatin 10 mg tablet 10 mg PO HS 05/03/18 04/26/24 History ergocalciferol (vitamin D2) 1,250 1 cap PO DIRECTED 05/03/18 04/26/24 History mcg (50,000 unit) capsule multivitamin with minerals 1 tab PO QAM 05/03/18 04/26/24 History tiotropium 2.5 mcg-olodaterol 2.5 1 puff inhalation BID 05/03/18 04/26/24 History mcg/actuation mist for inhalation (Stiolto Respimat) albuterol sulfate 90 mcg/actuation 2 inh inhalation Q4H PRN 12/30/20 04/26/24 History breath activated powder inhaler lisinopril 10 mg tablet 10 mg PO DAILY 12/30/20 04/26/24 History hydrochlorothiazide 25 mg tablet 25 mg PO DAILY 06/09/21 04/26/24 History aspirin 81 mg capsule 81 mg PO DAILY 04/26/24 04/26/24 History Exam Narrative Exam Narrative: Pain is better controlled with the rib blocks. He is able to cough and deep breathe to mobilize secretions [facility] Head: no palpable skull fracture, normocephalic, atraumatic, no abrasions, no Villarreal's sign, no hematomas, no lacerations, no scalp lesions and no scalp tenderness Ears: hearing grossly impaired (Normal for patient) General nose exam: external nose normal Face and sinus: normal facial exam, face symmetric, no abrasions, no crepitus, no ecchymosis, no erythema, no edema, no lacerations and no tenderness Mouth: oral mucosae normal, lip normal, tongue normal and No mouth trauma Teeth and gingiva: edentulous Eyes General: appearance normal, both eyes and all related structures Alignment and Position: alignment normal Eyelids: eyelids normal Pupils: PERRL EOM: EOM intact bilaterally Direct ophthalmoscopy: normal light reflex and no photophobia Neck Neck: normal visual inspection and full ROM Chest Chest: localized rib tenderness with anteroposterior compression (left mid ribs) Resp Effort & Inspection: normal respiratory effort and able to speak in complete sentences Auscultation: bronchial breath sounds, rhonchi left upper and left lower and wheezes Cardio Rate: regular rate Rhythm: regular rhythm GI Palpation: soft, nontender and No ascites Auscultation: normal bowel sounds Other: hip rock negative Back/Spine/Pelvis Back: no CVA tenderness Pelvis: no pain with anterior-posterior compression Skin Other: Lesions as previously noted on left elbow and left knee. Otherwise he is moving all joints as he had prior to the injury. He does have a left rotator cuff injury and did fall on this area. He was in PT previously for this Extrem General: normal to inspection (Except as where previously noted), full ROM (For the patient as before accident. Limitations on left shoulder similar t), no pedal edema and calf tenderness Psych Appearance: grossly normal Mental Status: mental status grossly normal Speech and Movement: speech and movement normal Mood: congruent mood Affect: normal affect Thought Process: normal Thought Content: normal Judgment: judgment good Results Labs 04/27/24 06:35 04/27/24 06:35 Last Vital Signs Temp 36.3 C L 04/26/24 19:24 Pulse 74 04/26/24 21:00 Resp 19 04/26/24 21:10 BP 156/79 H 04/26/24 21:00 Pulse Ox 93 04/26/24 21:10 Time Spent Time spent with Patient: 55-74 minutes Time was spent: preparing to see the patient(eg.review tests), obtaining and/or reviewing separately otained hiistory, ordering medications,tests, procedures, referring, communicating with other health patient care technician instructor, indepentently interpreting results, counseling the patient, care coordination and other
[2024-04-26] MEDS: Albuterol/Ipratropium 3 ML UPD VIAL UPD (21:56)
--- NOTE | 2024-04-26 22:31 | DI.RAD_ITS ---
Exam(s) XR CHEST 2V PA LATERAL EXAM: XR CHEST 2V PA LATERAL CLINICAL HISTORY: atelctasis and bronchiel plug truma TECHNIQUE: 2D digital imaging was performed. Two views. COMPARISON: CT CT CHEST W from 07/26/[address] CHEST WO from 04/26/2024 FINDINGS: Exam limited by poor penetration at the lung bases on the PA view. HEART: Normal size. Aorta: Not dilated. PULMONARY VASCULATURE: Normal. MEDIASTINUM: Unremarkable. LUNGS: Severe emphysematous changes noted in upper lobes. Fibrotic changes greater at lung bases. I ncreased density at left lower lobe consistent with chronic atelectasis of the left lower lobe seen o n CT examinations. PLEURAL SPACE: No pleural effusion or pneumothorax. BONE:Old right 5th rib fracture. Acute rib fractures are obscured.. SOFT TISSUES: Unremarkable. IMPRESSION: No evidence of pneumothorax. Chronic left lower lobe atelectasis. Emphysematous changes. DATA REPOSITORY: RADIATION DOSE DELIVERED:
--- NOTE | 2024-04-26 22:52 | DI.VRAD_ITS ---
PROCEDURE INFORMATION: Exam: XR Chest Exam date and time: 04/26/2024 10:29 PM Age: 74 years old Clinical indication: Other: Atelectasis and bronchial plug\T\ trauma TECHNIQUE: Imaging protocol: Radiologic exam of the chest. Views: 2 views. COMPARISON: CT CHEST WO 04/26/2024 7:48 PM FINDINGS: Lungs: Dependent atelectasis at the lung bases. Known complete atelectasis of the left lower lobe, better demonstrated by the comparison CT chest exam. Known emphysema, better demonstrated by the CT exam. Pleural spaces: No pleural effusion or pneumothorax demonstrated. Heart/Mediastinum: Normal-sized heart. Bones/joints: Old fracture through the posterolateral aspect of the right 5th rib. Known acute fractures through the left 7th-9th ribs, not well demonstrated. Old left-sided 8th rib fracture seen. Left 9th rib obscured. IMPRESSION: 1. Mild dependent atelectasis. Known complete atelectasis of the left lower lobe, better demonstrated by the comparison CT chest exam. 2. Known emphysema, better demonstrated by the comparison CT exam. Dictated and Authenticated by: Dennis Everett MD. Ordering:LAUREL Gutierrez MD
[2024-04-27] VITALS (30 sets, daily range): BP systolic 112–159; BP diastolic 59–90; PULSE 60–84; RESP 9–22; TEMP 36.6–37.2; O2SAT 89–96; BMI 28.3
[2024-04-27] MEDS: traMADol 50 MG TAB 100 MG PO (00:59)
--- NOTE | 2024-04-27 01:22 | W.PC.ACHO ---
Registration Status: Primary Language: Preferred Language: ED Information & Data Chief Complaint Chest/Rib 04/26/24 20:05 Triage Note Pt arrives to the ED c/o LT 04/26/24 19:24 sided rib pain s/p blunt trauma to LT chest. 90% O2 sat. Pt states he is occasionally on 2 L of O2 at home; has COPD. Bruise to LT elbow noted as well Medical / Surgical History (Last Updated 04/26/24 @ 22:04 by Brenda Padilla DO) KAY (acute kidney injury) Hypotension Pulmonary nodule (Last Updated 04/26/24 @ 22:05 by Brenda Padilla DO) S/P left colectomy Hx of radical prostatectomy Most Recent Vital Signs Temperature 36.3 C L 04/26/24 19:24 Temperature Source Oral 04/26/24 19:24 Pulse 78 04/26/24 23:30 Pulse 85 04/26/24 22:20 Respiratory Rate 22 04/26/24 22:20 Respiratory Effort Short of Breath 04/26/24 20:00 Respiratory Depth Normal 04/26/24 20:00 Respiratory Pattern Normal 04/26/24 20:00 Blood Pressure 142/64 H 04/26/24 23:30 Blood Pressure Mean 93 04/26/24 23:30 Blood Pressure Position Sitting 04/26/24 19:24 Pulse Oximetry 93 04/26/24 23:30 Oxygen Delivery Method Nasal Cannula 04/26/24 23:05 Oxygen Flow Rate 3 04/26/24 23:05 Pain Level 6 04/27/24 00:59 Allergies No Known Allergies Allergy (Unverified 04/26/24 19:29) Precautions Isolation Standard precaution 04/26/24 20:00 Active Medications Generic Name Dose Route Start Last Admin Trade Name Freq PRN Reason Stop Dose Admin Tramadol HCl 100 mg 04/26/24 22:08 04/27/24 00:59 Tramadol 50 Mg Tab PO 100 mg Q6H PRN PRN Administration Pain IV IV Catheter Type [Right Hand] Peripheral IV IV Catheter Gauge [Right Hand] 18 Diet Orders Category Date Time Status Regular/Normal [DIET] Nutrition 04/27/24 Breakfast Active Diagnostics 04/27/24 Range/Units 05:35 WBC Pending RBC Pending Hgb Pending Hct Pending MCV Pending MCH Pending MCHC Pending RDW Pending Plt Count Pending MPV Pending Immature Gran % Pending Neutrophils % Pending Lymphocytes % Pending Monocytes % Pending Eosinophils % Pending Basophils % Pending Absolute Neutrophils Pending Absolute Lymphocytes Pending Absolute Monocytes Pending Absolute Eosinophils Pending Absolute Basophils Pending Sodium Pending Potassium Pending Chloride Pending Carbon Dioxide Pending Anion Gap Pending BUN Pending Creatinine Pending Est GFR (CKD-EPI 2020) Pending Glucose Pending Calcium Pending Total Bilirubin Pending AST Pending ALT Pending Alkaline Phosphatase Pending Total Protein Pending Albumin Pending Intake and Output - 24 Hour Total 04/26/24 19:22 thru 04/27/24 00:35 Intake Total 10 Balance 10 Weight 90.265 kg Intake: IV 10 Other: Comment Prostate CA s/p TURP - pt states, they had to cut the nerve out too because of the cancer and he wears a pad in his underwear, states urology told him he would likely have to wear a pad for rest of his life. Falls Risk Assessment History of Falls No History 04/26/24 20:00 Contributing Factors No Factors 04/26/24 20:00 Ambulatory Aids Independent 04/26/24 20:00 Tubes/Lines None 04/26/24 20:00 Gait Evaluation No gait disturbance 04/26/24 20:00 Cognition No cognitive impairment 04/26/24 20:00 Fall Total Score 0 04/26/24 20:00 Level of Risk Standard/Low Risk 04/26/24 20:00 Problems (Last Updated 04/26/24 @ 22:04 by Brenda Padilla DO) Hypoxia (Acute) Fracture, ribs (Acute) Atelectasis of left lung (Acute) Multiple fractures of ribs of left side (Acute) Lung contusion (Acute) Aortic aneurysm (Chronic) Atherosclerosis (Acute) PAD (peripheral artery disease) (Acute) Colon cancer (Chronic) Coronary artery calcification seen on CAT scan (Acute) Hyperlipemia (Acute) Personal history of nicotine dependence (Acute) 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 (Acute) Hypertension (Chronic) COPD (chronic obstructive pulmonary disease) (Chronic) v v v v v v v v v Sending and/or Receiving Nurses: Please use comment section below to note any information pertinent to the patient hand-off not included above. Information / Comments: Report received from: BRAYDEN Lewis 04/26 @ [id number]
--- NOTE | 2024-04-27 03:15 | RT.EKG_ITS ---
APPROVED REPORT Exam: Resting ECG Reason for Exam: chest pain Patient Location: I HR:72 bpm ECG Measurements Heart Rate 72 AXIS MO 163 P 61 QRSd 107 QRS -1 QT 439 T 45 QTc 481 Conclusion Sinus rhythm...normal P axis, V-rate 50- 99 Normal Electrocardiogram
[2024-04-27 04:07] LABS: Troponin I 14 ng/L (<or=76)
[2024-04-27] MEDS: Acetaminophen 500 MG TAB 1000 MG PO ×4 (06:15→23:56)
--- NOTE | 2024-04-27 06:33 | DI.RAD_ITS ---
Exam(s) XR PORTABLE CHEST AP EXAM: XR PORTABLE CHEST AP CLINICAL HISTORY: chest pain TECHNIQUE: 2D digital imaging was performed. COMPARISON: CR,XR XR CHEST 2V PA LATERAL from 04/26/2024 FINDINGS: LUNGS: Small left pleural effusion. Increased densities again noted at left lung base, unchanged. S evere emphysematous changes. No pneumothorax. HEART: Normal size. AORTA: Normal diameter. BONES: Old bilateral rib fractures. Acute rib fractures are not visible. Spine with mainly obscured . Soft tissues: Unremarkable. IMPRESSION: Left basilar atelectasis. Small left pleural effusion now present. DATA REPOSITORY: RADIATION DOSE DELIVERED:
--- NOTE | 2024-04-27 06:47 | RESPIRATORY ---
Pt. stated that he uses 2LPM of O2 at baseline. DME is [employer].
[2024-04-27 06:52] LABS: Abs Immature Grans 0.03 10^3/uL (0.0-0.06); Absolute Basophil Count 0.03 10^3/uL (0.0-0.2); Absolute Eosinophil Count 0.19 10^3/uL (0.0-0.7); Absolute Lymphocyte Count 1.59 10^3/uL (1.2-3.4); Absolute Monocyte Count 0.94 10^3/uL (0.1-0.8); Absolute Neutrophil Count 7.71 10^3/uL (1.2-6.7); Basophils % 0.3 %; Eosinophils % 1.8 %; HCT 42.5 % (40.0-50.0); HGB 13.5 g/dL (13.5-17.5); Immature Grans % 0.3 %; Lymphocytes % 15.2 %; MCH 27.7 pg (27.0-33.0); MCHC 31.8 % (32.0-36.0); MCV 87 fL (80-95); MPV 10.9 fL (8.0-11.0); Neutrophils % 73.4 %; Platelet Count 286 10^3/uL (130-400); RBC 4.88 10^6/uL (4.36-5.78); RDW 15.9 % (11.8-14.1); RDW-SD 50.5 fL; WBC 10.49 10^3/uL (4.4-10.8)
[2024-04-27 07:13] LABS: ALT 23 U/L (16-63); AST 19 U/L (15-37); Albumin 3.4 g/dL (3.4-5.0); Alkaline Phosphatase 92 U/L (46-116); Anion Gap 6.7 mmol/L (3-11); BUN 17 mg/dL (7-18); Bilirubin, Total 0.45 mg/dL (0.2-1.0); CO2 27.3 mmol/L (21.0-32.0); CREATININE 1.2 mg/dL (0.70-1.30); Calcium 9.1 mg/dL (8.5-10.1); Chloride 107 mmol/L (98-107); Estimated GFR 63.46 (mL/min/1.73m2); Glucose 110 mg/dL (74-106); Potassium 3.9 mmol/L (3.5-5.1); Sodium 141 mmol/L (136-145); Total Protein 6.9 g/dL (6.4-8.2)
[2024-04-27 07:17] LABS: Troponin I 14 ng/L (<or=76)
--- NOTE | 2024-04-27 07:50 | DI.VRAD_ITS ---
PROCEDURE INFORMATION: Exam: XR Chest Exam date and time: 04/27/2024 6:27 AM Age: 74 years old Clinical indication: Other: Chest pain TECHNIQUE: Imaging protocol: Radiologic exam of the chest. Views: 1 view. COMPARISON: CR XR CHEST 2V PA LATERAL 04/26/2024 10:29 PM FINDINGS: Lungs: Bibasilar atelectasis and left lower lobe atelectasis again noted. Pleural spaces: Left pleural effusion. Heart/Mediastinum: No cardiomegaly. Bones/joints: Nonacute rib deformities. IMPRESSION: Left pleural effusion. No other significant interval change. Dictated and Authenticated by: Dinora Tam MD. Ordering:LAUREL Gutierrez MD
[2024-04-27] MEDS: Gabapentin 100 MG CAP PO ×3 (08:21→21:00)
[2024-04-27] MEDS: Polyethylene Glycol 3350 17 GM PACKET PO (08:21)
[2024-04-27] MEDS: Docusate Sodium 100 MG CAP PO ×3 (08:21→21:00)
[2024-04-27] MEDS: Normal Saline Flush 10 ML SYR IVP ×2 (08:22→21:14)
--- NOTE | 2024-04-27 09:08 | ANES.PREOP_ITS ---
General Info Date of Service Date Performed: 04/27/24 Height: 5 ft 10 in Weight: 89.4 kg Body Mass Index (BMI): 28.3 Meds Allergies and Home Medications Allergies Allergy/AdvReac Type Severity Reaction Status Date / Time No Known Allergies Allergy Unverified 04/26/24 19:29 Home Medication ?Medication ?Instructions ?Recorded atorvastatin 10 mg tablet 10 mg PO HS 05/03/18 ergocalciferol (vitamin D2) 1,250 1 cap PO DIRECTED 05/03/18 mcg (50,000 unit) capsule multivitamin with minerals 1 tab PO QAM 05/03/18 tiotropium 2.5 mcg-olodaterol 2.5 1 puff inhalation BID 05/03/18 mcg/actuation mist for inhalation (Stiolto Respimat) albuterol sulfate 90 mcg/actuation 2 inh inhalation Q4H PRN 12/30/20 breath activated powder inhaler lisinopril 10 mg tablet 10 mg PO DAILY 12/30/20 hydrochlorothiazide 25 mg tablet 25 mg PO DAILY 06/09/21 aspirin 81 mg capsule 81 mg PO DAILY 04/26/24 Current Visit Medications: Current Medications Generic Name Dose Route Start Last Admin Trade Name Freq PRN Reason Stop Dose Admin Acetaminophen 1,000 mg 04/27/24 06:00 04/27/24 06:15 Acetaminophen 500 Mg Tab PO 1,000 mg Q6H REY Administration Albuterol Sulfate 2.5 mg 04/26/24 22:08 Albuterol 2.5 Mg/3 Ml Inh Soln Vial UPD Q4H PRN PRN Albuterol Sulfate 2 puff 04/27/24 00:20 Albuterol Hfa 18 Gm 200 Puff Inh IH Q4H PRN PRN Device 1 each 04/26/24 23:00 Inhaler, Assist Device DIRECTED REY Docusate Sodium 100 mg 04/27/24 08:30 04/27/24 08:21 Docusate Sodium 100 Mg Cap PO 100 mg TID REY Administration Enoxaparin Sodium 40 mg 04/27/24 20:00 Enoxaparin 40 Mg/0.4 Ml Syr SC HS REY Gabapentin 100 mg 04/27/24 08:30 04/27/24 08:21 Gabapentin 100 Mg Cap PO 100 mg TID REY Administration IV Miscellaneous Supplies 1 each 04/26/24 22:15 Iv Access IV DIRECTED [facility] Lidocaine 1 patch 04/27/24 20:00 Lidocaine 5% Patch TP Q24H REY Metaxalone 800 mg 04/26/24 22:15 Metaxalone 800 Mg Tab PO TID PRN PRN Morphine Sulfate 2 mg 04/26/24 22:08 Morphine 2 Mg/Ml Syr IVP Q1H PRN PRN Ondansetron HCl 4 mg 04/26/24 22:08 Ondansetron 4 Mg/2 Ml Vial IVP Q4H PRN PRN Polyethylene Glycol 17 gm 04/27/24 08:30 04/27/24 08:21 Polyethylene Glycol 3350 17 Gm Packet PO 17 gm DAILY REY Administration Sodium Chloride 0 ml 04/26/24 22:08 Normal Saline Flush 10 Ml Syr IVP PRN PRN Sodium Chloride 0 ml 04/27/24 08:30 04/27/24 08:22 Normal Saline Flush 10 Ml Syr IVP 20 ml BID REY Administration Sodium Chloride 0 ml 04/26/24 22:08 Normal Saline 10 Ml Vial IJ DIRECTED PRN Tiotropium [place]/Olodaterol 2 puff 04/27/24 08:30 Tiotropium/Olodaterol 10 Puff Inhaler IH DAILY [facility] Tramadol HCl 100 mg 04/26/24 22:08 04/27/24 00:59 Tramadol 50 Mg Tab PO 100 mg Q6H PRN PRN Administration Pain PFSH Active Problems Active Problems: Problem Status Onset Code Hypoxia Acute R09.02 Fracture, ribs Acute S22.49XA Atelectasis of left lung Acute J98.11 Multiple fractures of ribs of left side Acute S22.42XA Lung contusion Acute S27.329A Aortic aneurysm Chronic I71.9 Atherosclerosis Acute I70.90 PAD (peripheral artery disease) Acute I73.9 Colon cancer Chronic C18.9 Coronary artery calcification seen on CAT scan Acute I25.10 Hyperlipemia Acute E78.5 Personal history of nicotine dependence Acute Z87.891 Narrowing of airway Acute J98.8 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 Acute C34.30 DVT prophylaxis Acute Hypertension Chronic I10 COPD (chronic obstructive pulmonary disease) Chronic J44.9 Medical History Medical History (Updated 04/26/24 @ 22:38 by Brenda Padilla DO) KAY (acute kidney injury) Hypotension Pulmonary nodule Surgical History Surgical History (Updated 04/26/24 @ 22:05 by Brenda Padilla DO) S/P left colectomy 2010 for colon cancer Hx of radical prostatectomy 2018 prostate cancer Tobacco Smoking/Tobacco Use Status: Former Tobacco Use Alcohol Alcohol Intake: never Substance Use Substance use: Never Substance use type: does not use Vital Signs and Lab Results Vital Signs Most Recent Vital Signs in EMR: Most Recent Vital Signs Temp Pulse Resp BP Pulse Ox 36.8 C 60 14 128/73 92 04/27/24 00:00 04/27/24 08:00 04/27/24 08:00 04/27/24 08:00 04/27/24 08:00 Lab Results 04/27/24 06:35 04/27/24 06:35 Blood Type / Crossmatch: 2 No Data to Display Complete Blood Count: 2 White Blood Count 10.49 10^3/uL (4.4-10.8) 04/27/24 06:35 Red Blood Count 4.88 10^6/uL (4.36-5.78) 04/27/24 06:35 Hemoglobin 13.5 g/dL (13.5-17.5) 04/27/24 06:35 Hematocrit 42.5 % (40.0-50.0) 04/27/24 06:35 Platelet Count 286 10^3/uL (130-400) 04/27/24 06:35 Complete Metabolic Panel: 2 Sodium 141 mmol/L (136-145) 04/27/24 06:35 Potassium 3.9 mmol/L (3.5-5.1) 04/27/24 06:35 Chloride 107 mmol/L (98-107) 04/27/24 06:35 Carbon Dioxide 27.3 mmol/L (21.0-32.0) 04/27/24 06:35 BUN 17 mg/dL (7-18) 04/27/24 06:35 Creatinine 1.2 mg/dL (0.70-1.30) 04/27/24 06:35 Est GFR (CKD-EPI 2020) 63.46 (mL/min/1.73m2) 04/27/24 06:35 Calcium 9.1 mg/dL (8.5-10.1) 04/27/24 06:35 Albumin 3.4 g/dL (3.4-5.0) 04/27/24 06:35 Glucose 110 mg/dL (74-106) H 04/27/24 06:35 Liver Function Panel: 2 Alanine Aminotransferase (ALT/SGPT) 23 U/L (16-63) 04/27/24 06: 35 Aspartate Amino Transf (AST/SGOT) 19 U/L (15-37) 04/27/24 06:35 Coagulation Panel: 2 No Data to Display Cardiac Panel: 2 Troponin I 14 ng/L (<or=76) 04/27/24 Arterial Blood Gas: 2 No Data to Display Venous Blood Gas: 2 No Data to Display Pancreas Panel: 2 No Data to Display Thyroid Panel: 2 No Data to Display Infectious Disease: 2 No Data to Display Blood Cultures: 2 No Data to Display Toxicology Panel: 2 No Data to Display Imaging and Studies Imaging and Studies Study information below may be from another EMR and interpreted by another provider. Please see original notes in EMR for more complete details. EKG Summary: Reviewed Stress Test Summary: STRESS TEST PATIENT NAME: JOE DOYLE UNIT #: [id number] ADMITTING PROVIDER: HERMAN BLANK, [facility] PRIMARY CARE PROVIDER: Beena Lovett DATE OF SERVICE: 05/09/18 : 1950 *[facility]* *[facility]* [address] [place] [address] Stress Electrocardiography Levi protocol Date of study: 05/09/2018 *PATIENT PRESENTATION* Height: 180.3cm (71in) Blood Pressure: Weight: 92.7kg (204lb) BSA: 2.17m^2 Ordering physician: Phi Terry Impressions: Abnormal study , ST depressions without angina. Summary: 1. Stress: The target heart rate was achieved. Recommendations: If high clinical suspicion for CAD suggest exercise perfusion study for further risk stratification. Indication: R94.32. History: Patient's presenting symptoms: asymptomatic. REASON FOR VISIT: PATIENT ADMITTED TO HOSPITAL 05/03/18 AFTER SYMPTOMATIC HYPOTENSIVE RESPONSE TO EXERCISE DURING PULMONARY REHABILITATION. BLOOD PRESSURE RESPONDED TO 2L FLUID BOLUS, NEGATIVE TROPONINS, AND SUBTLE ST CHANGES IN SCATTERED LEADS ON EKG. OUTPATIENT STRESS TEST ORDERED BY HOSPITALIST. 05/04/18 VENTILATION PERFUSION LUNG SCAN: INDETERMINATE STUDY. FINDINGS LIKELY DUE TO SEVERE COPD. 05/06/18 ECHOCARDIOGRAM: EJECTION FRACTION 55-60%. NORMAL STUDY. PAST MEDICAL HISTORY: COPD. HTN. HX PROSTATE AND COLON CANCER. FAMILY HISTORY: NONE. SMOKING STATUS: 40 YEAR SMOKING HISTORY, 1 07/24 PPD. QUIT IN 1999. EXERCISE ROUTINE: PULMONARY REHABILITATION 3X/WEEK. PMH: COPD. Risk factors: Current tobacco use. Hypertension. ALLERGIES: NO KNOWN ALLERGIES. MEDICATIONS: ATORVASTATIN 10MG, BEDTIME. ERGOCALCIFEROL 1 CAP, WEEKLY. HYDROCHLOROTHIAZIDE 25MG, DAILY. MULTIVITAMIN W/ MINERALS 1 TAB, DAILY. TIOTROPIUM-OLODATEROL 1 PUFF, BID. Protocol: Levi protocol. Baseline ECG: SINUS RHYTHM. HEART RATE 69 BPM. Stress protocol: + +---+ + !Stage !HR !BP (mmHg) ! + +---+ + !Baseline supine !69 !146/82 (103)! + +---+ + !Baseline standing !77 !144/90 (108)! + +---+ + !Stage I; 1.7mph, 10degrees; 3 min !109!122/70 (87) ! + +---+ + !Stage II; 2.5mph, 12degrees; 3 min!120!128/70 (89) ! + +---+ + !Recovery; 1 min !121!110/58 (75) ! + +---+ + !Recovery; 3 min !102!132/82 (99) ! + +---+ + !Recovery; 6 min !98 !140/74 (96) ! + +---+ + !Recovery; 9 min !97 !128/76 (93) ! + +---+ + * Stress results: Maximal heart rate during stress was 133bpm (88% of maximal predicted heart rate). The maximal predicted heart rate was 152bpm. The target heart rate was achieved. The rate-pressure product for the peak heart rate and blood pressure was 51950sd Hg/min. Stress ECG: TREADMILL PORTION OF EXERCISE STRESS TEST ENDED IN 7MIN 27SEC DUE TO PATIENT FATIGUE AND DYSPNEA. APPROPRIATE HEART RATE RESPONSE TO EXERCISE. HYPOTENSIVE RESPONSE TO EXERCISE, ASYMPTOMATIC. MAX HEART RATE 133 BPM, 87% OF TARGET. APPROXIMATE METS ACHIEVED 9.26. NO ANGINA REPORTED. NO ECTOPY NOTED. UPWARD SLOPING ST SEGMENT DEPRESSION NOTED IN LEADS V3 AND V4 DURING STAGE [address]. HORIZONTAL ST SEGMENT DEPRESSION NOTED IN LEADS V3, V4, AND V5 DURING IMMEDIATE RECOVERY PERIOD. CONTINUED HORIZONTAL ST SEGMENT DEPRESSION OF LEADS V3 AND V4 NOTED THROUGHOUT RECOVERY, RETURNING TO BASELINE IN MINUTE 9 OF RECOVERY PERIOD. AVERAGE FUNCTIONAL CAPCITY. Study data: Marta Rodriguez MD supervised and was readily available during the procedure. This study was interpreted by [facility]. Study status: Routine. Consent: The risks, benefits, and alternatives to the procedure were explained to the patient and informed consent was obtained. Procedure: Initial setup. A baseline ECG was recorded. Surface ECG leads and manual cuff blood pressure measurements were monitored. Heart sounds: Normal. Lung sounds: Normal. Supplemental oxygen. Oxygen, at an FIO2 of 92% was administered throughout the procedure. Treadmill exercise testing was performed using the Levi protocol. Study completion: The patient tolerated the procedure well and was discharged from the lab. Discharge: The patient left the laboratory in stable condition. Birthdate: Patient birthdate: 1950. Sex: Gender: male. Study date: Study date: 05/09/2018. Study time: 02:00 PM. Signature Documentation: The Stress ECG portion of this study was interpreted by Marta Rodriguez MD. Electronically signed by Marta Rodriguez 05/09/2018 15:53 - Dictated by: MARTA RODRIGUEZ MD Dictated:: 05/09/18 1430 05/09/18 1553 Transcribed Date: Transcribed Time: By: KAITLYNN This is privileged, confidential information, intended only for the provider named. Any use or distribution by any person other than this provider is strictly prohibited. If you receive this report in error, please notify us immediately at [phone] and return the original report to us at the address above. Thank you. Echocardiogram Summary: Patient Name: JOE DOYLE Unit #: [id number] Loc: DI Ordering Provider: Phi Terry M.D. Status: REG CLI Primary Care Provider: Beena Lovett Date of Exam: 05/06/18 Sex: M : 1950 Age: 68 Exam(s) a US:US echocardiogram *[facility]* *[facility]* [address] [place] [address] Date of study: 05/06/2018 Transthoracic Echocardiography M-mode, complete 2D, complete spectral Doppler, and color Doppler *STUDY CONCLUSIONS* Summary: 1. Left ventricle: Wall thickness was at the upper limits of normal. Systolic function was normal. The estimated ejection fraction was 55-60%. Diastolic parameters were normal for age. There was no evidence of elevated ventricular filling pressure by Doppler parameters. 2. Right ventricle: The cavity size was normal. Wall thickness was normal. Systolic function was normal. 3. Atrial septum: No defect or patent foramen ovale was identified. 4. Pulmonary arteries: Pulmonary systolic pressure was in the range of 35mm Hg to 45mm Hg. 5. Inferior vena cava: The vessel was patent and normal in size. The respirophasic diameter changes were in the normal range (greater than or equal to 50%), consistent with normal central venous pressure. *PATIENT PRESENTATION* Height: 180.3cm ((71in) ) S/D Pressure: 143 / 90 Weight: 92.5kg ((203.6lb) ) BSA: 2.17m^2 Test start time: 10:40 AM. Test stop time: 11:30 AM. PERFORMING Unknown ORDERING Phi Terry REFERRING Phi Terry PERFORMING [facility] DIRECTOR WOMEN RT Sukhi (R)(CT), RD REFERRING Beena Lovett *PROCEDURE DATA* Procedure information: The patient was identified by two identifiers. This study was interpreted by [facility]. Pertinent images and digital data are archived for permanent storage and are available for subsequent review. No prior study was available for comparison. Study status: Routine. Transthoracic echocardiography. M-mode, complete 2D, complete spectral Doppler, and color Doppler. A Transthoracic Echocardiogram was performed. Scanning was performed from the parasternal, apical, subcostal, and suprasternal notch acoustic windows. Images were obtained using an [id number] cardiac ultrasound machine. Image quality was adequate. Study completion: The patient tolerated the procedure well. History: PMH: Hypotension. Essential HTN, weakness, lightheaded, dizziness. *CARDIAC ANATOMY* Left ventricle: Wall thickness was at the upper limits of normal. Systolic function was normal. The estimated ejection fraction was 55-60%. Diastolic parameters were normal for age. There was no evidence of elevated ventricular filling pressure by Doppler parameters. Aortic valve: Doppler: VTI ratio of LVOT to aortic valve: 0.72. Valve area (VTI): 2.5cm^2. Indexed valve area (VTI): 1.1cm^2/m^2. Peak velocity ratio of LVOT to aortic valve: 0.73. Valve area (Vmax): 2.5cm^2. Indexed valve area (Vmax): 1.2cm^2/m^2. Mean velocity ratio of LVOT to aortic valve: 0.75. Valve area (Vmean): 2.6cm^2. Indexed valve area (Vmean): 1.2cm^2/m^2. Mean gradient (S): 2.8mm Hg. Peak gradient (S): 4.8mm Hg. Mitral valve: Doppler: There was no evidence for stenosis. There was no significant regurgitation. Valve area by pressure half-time: 2.2cm^2. Indexed valve area by pressure half-time: 1cm^2/m^2. Left atrium: The atrium was normal in size. Atrial septum: No defect or patent foramen ovale was identified. Right ventricle: The cavity size was normal. Wall thickness was normal. Systolic function was normal. Pulmonic valve: Doppler: There was no evidence for stenosis. There was no significant regurgitation. Tricuspid valve: Doppler: There was mild regurgitation. Pulmonary artery: Poorly visualized. Pulmonary systolic pressure was in the range of 35mm Hg to 45mm Hg. Right atrium: The atrium was normal in size. Pericardium: There was no pericardial effusion. Systemic veins: Inferior vena cava: Well visualized. The vessel was patent and normal in size. The respirophasic diameter changes were in the normal range (greater than or equal to 50%), consistent with normal central venous pressure. Baseline ECG: Normal sinus rhythm. Measurements Left ventricle Value Reference LV ID, ED, PLAX 4.2 cm 3.5 - 6.0 LV ID, ES, PLAX 3.0 cm 2.1 - 4.0 LV PW thickness, ED, PLAX 1.0 cm LV end-diastolic volume, 1-p A2C 43 ml LV ejection fraction, 1-p A2C 58 % LV end-diastolic volume, 1-p A4C 44 ml LV ejection fraction, 1-p A4C 54 % LV e', lateral 0.076 m/sec LV E/e', lateral 5 LV e', medial 0.077 m/sec LV E/e', medial 5 LV e', average 0.076 m/sec LV E/e', average 5 Ventricular septum Value Reference IVS thickness, ED, PLAX 1.1 cm LVOT Value Reference LVOT ID, A-P 2.1 cm LVOT area 3.5 cm^2 LVOT peak velocity, S 0.8 m/sec LVOT mean velocity, S 0.6 m/sec LVOT VTI, S 15.2 cm LVOT peak gradient, S 2.6 mm Hg LVOT mean gradient, S 1.6 mm Hg Stroke volume (SV), LVOT DP 52 ml Stroke index (SV/bsa), LVOT DP 24 ml/m^2 Aortic valve Value Reference Aortic valve peak velocity, S 1.1 m/sec Aortic valve mean velocity, S 0.8 m/sec Aortic valve VTI, S 21.0 cm Aortic mean gradient, S 2.8 mm Hg Aortic peak gradient, S 4.8 mm Hg VTI ratio, LVOT/AV 0.72 Aortic valve area, VTI 2.5 cm^2 Velocity ratio, peak, LVOT/AV 0.73 Aortic valve area, peak velocity 2.5 cm^2 Velocity ratio, mean, LVOT/AV 0.75 Aortic valve area, mean velocity 2.6 cm^2 Aortic valve area/bsa, mean velocity 1.2 cm^2/m^2 Aorta Value Reference Aortic root ID, ED 3.5 cm Ascending aorta ID, A-P, S 3.5 cm RVOT Value Reference RVOT VTI, S 9.8 cm Left atrium Value Reference LA ID, A-P, ES 3.5 cm LA ID/bsa, A-P 1.6 cm/m^2 <=2.2 LA area, ES, A4C Anesthesia Assessment and Plan Anesthesia History Personal History: No History of Anesthesia Complications Family History: No Family History of Anesthesia Complications Exercise Tolerance Exercise Tolerance: Metabolic Equivalents>4 Pertinent Negatives Pertinent Negatives: No Symptoms of GERD Cardiac & Pulmonary Exam Cardiac Exam: Normal S1/S2 Heart Sounds Pulmonary Exam: Clear Bilateral Breath Sounds Implantable Cardiac Device Does patient have a Pacemaker or an ICD?: No Airway Exam Known Difficult Airway: No Mallampati Class: 2 Mouth Opening: Normal (> 3cm) Thyromental Distance: Greater than 3 cm Neck Range of Motion: Full ROM Neck Circumference: Normal Teeth Condition: Edentulous ASA Classification ASA Score: ASA 3 Emergency Case?: No NPO Status NPO Status: NPO Clears >2 hours, Solids >8 hours Anesthesia Plan Resuscitation Status: Full Code Anesthesia Technique: Primary Nerve Block Airway Planned: Natural Airway Pain Management: Surgeon and patient request nerve block Monitors Used: Standard Monitors Preoperative Comments:: Left sided erector spinae requested for pain control.
[2024-04-27] MEDS: Tiotropium/Olodaterol 10 PUFF INHALER 2 PUFF IH (09:22)
--- NOTE | 2024-04-27 09:46 | W.ANESNERVE ---
Nerve Block Single Injection Procedure Date and Time Date Performed: 04/27/24 Procedure Start: 09:32 Location Where Procedure Performed Procedure Location: Intensive Care Unit Reason Performed: Acute Pain Management Pain Diagnosis: Rib Pain Requesting Provider: Brenda Padilla Timeout Performed Timeout Performed: Yes Monitoring Used ECG, Blood Pressure, SpO2 and ETCO2 Sterility Sterility: Hand Hygiene, Surgical Cap, Surgical Mask, Sterile Gloves and Chlorhexidine Sedation Given During Procedure Sedation Given (Indicate Dose Given): No Sedation given Patient Mental Status Patient Mental Status: Awake Nerve Block 1st Nerve Block: Laterality: Left Block Type: Erector Spinae (Upper) Ultrasound Image Saved?: Yes Needle / Catheter Used: 100mm SonoPlex II Local Anesthetic Bolus (Indicate Dose Given): Lidocaine used for local infiltration of skin, Injected in 3-5ml increments after negative blood aspiration, Bupivacaine 0.25% Dose:: 10 ml and Exparel Dose:: 10 ml Additives (Indicate Dose Given): None Ultrasound: Sterile probe cover and gel used Nerve Stimulator: Not Used Paresthesia: None Procedure Tolerated: No Complications and Patient tolerated well Procedure Outcome: Successful Performed By: Beka Smith
[2024-04-27] MEDS: Bupivacaine 0.25% Pres-Free 10 ML VIAL (11:03)
[2024-04-27] MEDS: Bupivacaine LIPOSOME/PF 133 MG/10 ML VIAL IJ (11:04)
--- NOTE | 2024-04-27 13:04 | PDOC.CMIN ---
Date of service: 04/27/24 Time of Service: 11:00 Care Management Initial Assmt Initial Assessment Reason for Hospitalization: s/p fall with blunt chest trauma/ Left rib fractures Functional Status/Living Situation Patient Presentation: Ed was working in his [employer] yesterday when he was trying to push a drill press to a different area of the room. He stated that his left arm gave out, and he fell on the press. He stated that he knew right away that he had broken some ribs, due to the sound when he fell, and the pain. He waited 1 hour for his to come home before going to the ER. Ed was in bed, with the head elevated, when CM met with him today. He was pleasant and agreeable to speaking. He said that he is feeling well, denied pain. He is on some nc O2, has home O2 for use PRN. Ed has [employer] insurance and [employer]. He stated his called the [facility] to notify them. He is closely followed by cardiology here at [facility]. Town of Residence: [facility] Resides with: Spouse (Lives with his , Merry and a son who is starting a horse farm on the property) Significant Other/Family: Local ( and son live with him. Another child in [place], and one in [place]. 4 grandchildren) Natural Supports: and son Employment Status: Retired (retired from the [employer] in 2016. 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 He works on various projects around the house. Medications Medication Management: No Issues/Barriers identified Advance Directives Advance Directives: Do you have an Advance Directive: Y 05/08/18 18:01 AD On File at [facility]: Y 05/08/18 18:01 Date Asked 01/20/24 01/20/24 18:42 AD Date Reviewed 07/23/23 07/24/23 10:01 COLST On File at [facility] COLST Date Scanned Code Status Resuscitation Status Full Code Insurance Coverage/Financial Issues Insurance: VA and A[employer] Financial Issues: denies Care Team Visit Care Team Role Provider Type Beena Lovett Primary Care Provider NON-[facility] STAFF PHYSICIAN Yadi Pereira Other Providers CAT CRACKER OPERATOR Kaci Cox Other Providers CAT CRACKER OPERATOR Mireya Mora Other Providers CAT CRACKER OPERATOR Cally Mancia RN Other Providers CAT CRACKER OPERATOR Maryanne Song Other Providers WEB MARKETING SPECIALIST Anesthesia Consult Other Providers OTHER Gage Merino MD Emergency Provider [facility] STAFF PHYSICIAN Brenda Padilla DO Admit Provider OSTEOPATHIC DOCTOR Attending Provider Discharge Potential Discharge Needs: PT Evaluation, PCP F/U Appt and Surgical F/U Appt Anticipated Barriers to Discharge: None Identified Patient/Family Education Needs: Review discharge instructions, discuss Ask Me Three Transportation: Private vehicle Plan: Anticipate that Ed will be discharged with no new services. He will f/u with his PCP and the surgeons and continue per the plan of care. He will transport with his . CM will continue to follow and update the plan as needed. PFSH All Active Problems (Updated 04/26/24 @ 22:38 by Brenda Padilla DO) Hypoxia (Acute) Fracture, ribs (Acute) Atelectasis of left lung (Acute) Multiple fractures of ribs of left side (Acute) Lung contusion (Acute) Aortic aneurysm (Chronic) Atherosclerosis (Acute) PAD (peripheral artery disease) (Acute) Colon cancer (Chronic) Coronary artery calcification seen on CAT scan (Acute) Hyperlipemia (Acute) Personal history of nicotine dependence (Acute) Narrowing of airway (Acute) 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 (Acute) DVT prophylaxis (Acute) Hypertension (Chronic) COPD (chronic obstructive pulmonary disease) (Chronic) Medical History (Updated 04/26/24 @ 22:38 by Brenda Padilla DO) KAY (acute kidney injury) Hypotension Pulmonary nodule Surgical History (Updated 04/26/24 @ 22:05 by Brenda Padilla DO) S/P left colectomy 2009 for colon cancer Hx of radical prostatectomy 2018 prostate cancer Social History Smoking/Tobacco Use Status: Former Tobacco Use Quit Date: 07/23/99 Tobacco: How many years used: 40 Smoking risk assessment performed?: Yes Alcohol Intake: never Drug use: Never Substance use type: does not use Housing: house Do you feel safe at home: Yes Do you feel safe in your relationship?: Yes Readmission Within the Past 30 Days Yes or No: No SDOH(Care Management) Screening Will the Patient Participate in the Screening?: Yes Do you worry about having a steady place to live?: no Problems where you live: no known problems In the past 12 months, have you had to go without electric, gas, oil or water in your home?: yes Have you or anyone in your house had to go without enough food to eat?: no Has lack of transportation kept you from medical appointments or from doing things needed for daily living?: no Has anyone in your support network made you feel unsafe for any reason?: no Social Determinants of Health Comments(SDOH Details): pt's solar panel was not working and he didn't know, so he didn't know he had used any kwh from the [employer]; [employer] shut power off, pt states not for very long. He believes the company now knows that they cannot turn his electric off because he has home O2, but states they did already know when they turned it off, so his called and spoke to them again. Health Related Social Needs Health related social needs: material hardship(utilities)(Z59.87)
--- NOTE | 2024-04-27 20:44 | W.PC.ACHO ---
Registration Status: Primary Language: Preferred Language: ED Information & Data Chief Complaint Chest/Rib 04/26/24 20:05 Triage Note Pt arrives to the ED c/o LT 04/26/24 19:24 sided rib pain s/p blunt trauma to LT chest. 90% O2 sat. Pt states he is occasionally on 2 L of O2 at home; has COPD. Bruise to LT elbow noted as well Medical / Surgical History (Last Reviewed 04/27/24 @ 15:28 by Brenda Padilla DO) KAY (acute kidney injury) Hypotension Pulmonary nodule (Last Reviewed 04/27/24 @ 15:28 by Brenda Padilla DO) S/P left colectomy Hx of radical prostatectomy Most Recent Vital Signs Temperature 37.2 C 04/27/24 14:02 Temperature Source Temporal Artery Scan 04/27/24 00:00 Pulse 70 04/27/24 18:02 Pulse 74 04/27/24 18:02 Respiratory Rate 21 04/27/24 18:02 Respiratory Effort Normal 04/27/24 00:00 Respiratory Depth Normal 04/27/24 00:00 Respiratory Pattern Normal 04/27/24 00:00 Blood Pressure 112/75 04/27/24 18:02 Blood Pressure Mean 89 04/27/24 18:02 Blood Pressure Position Supine 04/27/24 00:00 Pulse Oximetry 89 L 04/27/24 18:02 Oxygen Delivery Method Nasal Cannula 04/27/24 15:45 Oxygen Flow Rate 2 04/27/24 15:45 Pain Level 6 04/27/24 00:59 Allergies No Known Allergies Allergy (Unverified 04/26/24 19:29) Precautions Isolation Standard precaution 04/26/24 20:00 Active Medications Generic Name Dose Route Start Last Admin Trade Name Freq PRN Reason Stop Dose Admin Acetaminophen 1,000 mg 04/27/24 16:00 04/27/24 16:09 Acetaminophen 500 Mg Tab PO 1,000 mg Q8H REY Administration Docusate Sodium 100 mg 04/27/24 08:30 04/27/24 14:48 Docusate Sodium 100 Mg Cap PO 100 mg TID REY Administration Gabapentin 100 mg 04/27/24 08:30 04/27/24 14:48 Gabapentin 100 Mg Cap PO 100 mg TID REY Administration Polyethylene Glycol 17 gm 04/27/24 08:30 04/27/24 08:21 Polyethylene Glycol 3350 17 Gm Packet PO 17 gm DAILY REY Administration Sodium Chloride 0 ml 04/27/24 08:30 04/27/24 08:22 Normal Saline Flush 10 Ml Syr IVP 20 ml BID REY Administration Tiotropium [place]/Olodaterol 2 puff 04/27/24 08:30 04/27/24 09:22 Tiotropium/Olodaterol 10 Puff Inhaler IH 2 puff DAILY REY Administration Tramadol HCl 100 mg 04/26/24 22:08 04/27/24 00:59 Tramadol 50 Mg Tab PO 100 mg Q6H PRN PRN Administration Pain IV IV Catheter Type [Right Hand] Saline Lock IV Catheter Gauge [Right Hand] 18 Diagnostics 04/27/24 04/27/24 Range/Units 06:35 03:45 WBC 10.49 (4.4-10.8) 10^3/uL RBC 4.88 (4.36-5.78) 10^6/uL Hgb 13.5 (13.5-17.5) g/dL Hct 42.5 (40.0-50.0) % MCV 87 (80-95) fL MCH 27.7 (27.0-33.0) pg MCHC 31.8 L (32.0-36.0) % RDW 15.9 H (11.8-14.1) % Plt Count 286 (130-400) 10^3/uL MPV 10.9 (8.0-11.0) fL Immature Gran % 0.3 % Neutrophils % 73.4 % Lymphocytes % 15.2 % Monocytes % 9.0 % Eosinophils % 1.8 % Basophils % 0.3 % Nucleated RBC % 0.0 (0.0-0.3) % Absolute Neutrophils 7.71 H (1.2-6.7) 10^3/uL Absolute Lymphocytes 1.59 (1.2-3.4) 10^3/uL Absolute Monocytes 0.94 H (0.1-0.8) 10^3/uL Absolute Eosinophils 0.19 (0.0-0.7) 10^3/uL Absolute Basophils 0.03 (0.0-0.2) 10^3/uL Sodium 141 (136-145) mmol/L Potassium 3.9 (3.5-5.1) mmol/L Chloride 107 (98-107) mmol/L Carbon Dioxide 27.3 (21.0-32.0) mmol/L Anion Gap 6.7 (3-11) mmol/L BUN 17 (7-18) mg/dL Creatinine 1.2 (0.70-1.30) mg/dL Est GFR (CKD-EPI 2020) 63.46 (mL/min/1.73m2) Glucose 110 H (74-106) mg/dL Calcium 9.1 (8.5-10.1) mg/dL Total Bilirubin 0.45 (0.2-1.0) mg/dL AST 19 (15-37) U/L ALT 23 (16-63) U/L Alkaline Phosphatase 92 (46-116) U/L Troponin I 14 14 (<or=76) ng/L Total Protein 6.9 (6.4-8.2) g/dL Albumin 3.4 (3.4-5.0) g/dL Intake and Output - 24 Hour Total 04/26/24 19:22 thru 04/27/24 18:40 Intake Total 1110 Output Total 2375 Balance -1265 Weight 89.4 kg Intake: IV 10 Oral 1100 Output: Urine 2375 Other: Urine Color Yellow Urine Appearance Clear Urine Odor Normal Comment Prostate CA s/p TURP - pt states, they had to cut the nerve out too because of the cancer and he wears a pad in his underwear, states urology told him he would likely have to wear a pad for rest of his life. Voiding Methods Urinal Falls Risk Assessment History of Falls Admit Due to Fall 04/27/24 00:00 Contributing Factors Impairments,Incontinence, 04/27/24 00:00 Medications Ambulatory Aids Independent 04/27/24 00:00 Tubes/Lines With any additional score 04/27/24 00:00 Gait Evaluation No gait disturbance 04/27/24 00:00 Cognition No cognitive impairment 04/27/24 00:00 Fall Total Score 54 04/27/24 00:00 Level of Risk High Risk 04/27/24 00:00 Problems (Last Reviewed 04/27/24 @ 15:28 by Brenda Padilla DO) Hypoxia (Acute) Fracture, ribs (Acute) Atelectasis of left lung (Acute) Multiple fractures of ribs of left side (Acute) Lung contusion (Acute) Aortic aneurysm (Chronic) Atherosclerosis (Acute) PAD (peripheral artery disease) (Acute) Colon cancer (Chronic) Coronary artery calcification seen on CAT scan (Acute) Hyperlipemia (Acute) Personal history of nicotine dependence (Acute) 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 stated that he uses 2LPM of O2 at baseline. DME is [employer]. Initialized on 04/27/24 06:47 - END OF NOTE v v v v v v v v v Sending and/or Receiving Nurses: Please use comment section below to note any information pertinent to the patient hand-off not included above. Information / Comments: No questions. Report received from:Lorin Anne RN
[2024-04-27] MEDS: Enoxaparin 40 MG/0.4 ML SYR SC (21:01)
[2024-04-27] MEDS: Lidocaine 5% Patch 1 PATCH TP (21:02)
[2024-04-28 00:06] VITALS: BP 154/77; PULSE 70; RESP 22; TEMP 36.6; O2SAT 91
[2024-04-28 03:59] VITALS: BP 131/71; PULSE 75; RESP 18; TEMP 37.1; O2SAT 91
[2024-04-28] MEDS: Polyethylene Glycol 3350 17 GM PACKET PO (07:55)
[2024-04-28] MEDS: Docusate Sodium 100 MG CAP PO (07:56)
[2024-04-28] MEDS: Gabapentin 100 MG CAP PO (07:56)
[2024-04-28] MEDS: Acetaminophen 500 MG TAB 1000 MG PO (07:56)
[2024-04-28] MEDS: Normal Saline Flush 10 ML SYR IVP (07:57)
[2024-04-28 08:05] VITALS: BP 147/87; PULSE 88; RESP 18; TEMP 36.9; O2SAT 91
--- NOTE | 2024-04-28 08:29 | DI.RAD_ITS ---
Exam(s) XR CHEST 2V PA LATERAL EXAM: XR CHEST 2V PA LATERAL CLINICAL HISTORY: pleural eff/chest trauma/rib Fx. TECHNIQUE: 2D digital imaging was performed. COMPARISON: CT CT CHEST WO from 04/26/2024 CR,XR XR PORTABLE CHEST AP from 04/27/2024 FINDINGS: 2 views: Healed right-sided 5th rib fracture again noted. Also again noted are multiple left-sided rib fractu res. These have been shown to be acute fractures of the left 7th, 8th, and 9th ribs on recent CT sca n of 04/27/2024 and old left 8th through 10th rib fractures. Heart size is normal. The mediastinum is not widened. COPD emphysematous changes again noted. Left lower lobe atelectasis again noted as well as some blun ting of left costophrenic angle. No pneumothorax, given the recent acute left-sided rib fractures. IMPRESSION: As above. Persistent left lower lobe collapse and atelectasis and left-sided acute rib fractures [place] ntified. There is no pneumothorax. DATA REPOSITORY: RADIATION DOSE DELIVERED:
[2024-04-28 08:45] VITALS: O2SAT 93
[2024-04-28 08:48] VITALS: O2SAT 91
[2024-04-28] MEDS: Tiotropium/Olodaterol 10 PUFF INHALER 2 PUFF IH (08:48)
--- NOTE | 2024-04-28 10:04 | IN_ITS ---
PT Notes Visit Reasons: blunt chest trauma/left rib fractures Inpatient Physical Therapy Evaluation Date: 04-28-2024 Referring Doctor: Dr Padilla PT Orders: PT CONSULT: PT evaluation and treatment Precautions: No lifting >5#, Oxygen continuous 2L/Min via NC, telemetry, monitor oxygen saturation Patient Profile/Admitting Diagnosis: Pt is a 74 yo male presented to ER s/p fall while moving a drill press in his garage.He fell into the drill press and immediately hurt and felt his ribs breake. He waited one hour until his came home to go to the ED. Xrays revealed Acute fractures through the lateral aspect of the left 7th rib and through the posterolateral aspect of the left 8th and 9th ribs. Pt also sustained a lung contusion. (+) atelectasis. Pt with history of Non small cell cancer of lower lobes requiring home oxygen. Pt stabilized and transferred to ICU then med surg unit for PT consult prior to discharge to home. 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 Pt Independent ADLs, light outdoor chores.He has 3-5 steps wo enter with a rail. Equipment Owned/DME: FWW, cane, oxygen tanks and concentrator for indoor use. Subjective: He reports He wears his oxygen intermittently throughout the day despite MD recommendation to wear it continuously. He has 3-5 steps to enter with a rail. He states he spends most of his time in his garage/ man cave Objective: General Observation: Pt presents semireclined in bed with HOB to 60 degrees. Oxygen at 2L/M via NC and telemetry in place. Pt agreeable to participate Mental Status: A + Oriented x 4 , pleasant, cooperative, motivated to return home Pain: left ribs and shoulder: 09/29 Vital Signs: monitored via telemetry, sat pre: 93% during amb with stand rest 90% return to 94% within 1 min with PLB tech. cues. post ambulation 89% with return to 95% with sit rest and cues for PLB ROM: Right Upper Extremity: WNL Left Upper Extremity: Shoulder flexion and abduction 30 degrees AROM, ER 10 degrees, IR unable to reach behind back, Elbow and hand WNL Right Lower Extremity: hip extension 5degrees, hip abduction 15 degrees, hip flexion WNL knee WNL, ankle DF to neutral PF WNL Left Lower Extremity: hip extension 5 degrees, hip abduction 15 degrees, hip flexion WNL, knee WNL, ankle DF to neutral PF WNL Strength: Right Upper Extremity: 5/5 Left Upper Extremity: shoulder flexion 2+/5, abduction 2+/5, ER 2-/5, IR 2/5, elbow flexion 3/5 , extension 3-/5, wrist and hand 5/5 Right Lower Extremity: 5/5 Left Lower Extremity: 5/5 Sensation: intact Bed Mobility/Transfers: independent bed mobility with increased time. with HOB elevated by 3 pillows, Independent transfers without AD. Gait: pt ambulate without AD on 2L/Min oxygen via NC with supervision 400 feet with 3 stand rests to maintain oxygen saturation > 88%. Pt demonstrates wide TOMASZ with reciprocal pattern with early heel off B d/t impaired DF. Pt able to manage oxygen tank/cart . Pt requires cues to breathe in through nose and slowly exhale out his mouth. Stairs: supervision 5 steps with one rail assist to lift oxygen tank d/t lifting restriction. Balance: [] Static Sitting: normal Dynamic Sitting: good Static Standing: good+ Dynamic Standing: good Special Tests: Mobility Limitations Standardized Measure [facility] AM-PAC 6 clicks Basic Mobility Inpatient Short Form: Raw Score: 22 CMS Score: 20.91% Informed Consent/Education: Patient instructed in purpose of PT consult and plan of care. Assessment: Patient is a 74 year old male referred to physical therapy services with the diagnosis of left rib fractures. Pt also demonstrates limitations consistent with Left rotator cuff injury, with impairments as stated.(+) painful arc, (+) Story-Fritz, (+)Neer's Test. Patient presents with clinical signs and symptoms consistent with admitting diagnosis, as demonstrated by the following impairment level findings: 1. increased pain left lateral trunk/ribs 2. decreased ROM left shoulder 3. Impaired strength left shoulder 4. impaired standing tolerance/ functional activity tolerance 5. impaired oxygen saturation during functional tasks requiring supplemental oxygen Impairments are contributing to the following functional limitations: AMPAC score. 1. increased time to complete ADL / functional mobility. 2. reduced ability to perform stairs safely and independently 3. reduced pacing and breath control techniques to maintain oxygen saturation > 88% Patient is assessed as a Moderate [id number] complexity based on the following: History: 74 yo male with past medical history as stated above Examination: demonstrates impairment of strength and ROM left shoulder, impaired balance and mobility level with underlying impairments and functional limitations as exhibited above Presentation: stable Decision Making: moderate Pt is safe to return to home with and daughter providing assistance for oxygen tank on the stairs. Goals: NA discharge to home Plan of Care/Treatment Plan: NA discharge to home DISCHARGE RECOMMENDATIONS: [] [] Home with no services [] [] Home with services [specify] [X] Home and return to Pulmonary Rehab program 2x/week [] SNF for continued rehabilitation [] [] Prison Care [] [] SNF versus LTC based on ability to participate and progress [] TREATMENT CODE/TIME: 43655 x 20 mins for 1 unit , 97575 x 16 mins for 1 unit/ [id number] Please sign an return this page within 30 days if you agree with the above POC. Thank you! Physician Signature Date [facility]
[2024-04-28] MEDS: Lidocaine Patch Removal 1 EACH TP (10:18)
[2024-04-28 11:29] VITALS: BP 118/73; PULSE 79; RESP 17; TEMP 36.7; O2SAT 90
--- NOTE | 2024-04-28 12:40 | W.PM.DS.N ---
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: Status: Acute (4) COPD (chronic obstructive pulmonary disease): Status: Chronic (5) Personal history of nicotine dependence: Status: Acute (6) Pulmonary nodule: (7) Hyperlipemia: Status: Acute (8) Coronary artery calcification seen on CAT scan: Status: Acute (9) Colon cancer: Status: Chronic (10) S/P left colectomy: (11) Hx of radical prostatectomy: (12) PAD (peripheral artery disease): Status: Acute (13) Atherosclerosis: Status: Acute (14) Aortic aneurysm: Status: Chronic (15) Lung contusion: Status: Acute (16) Multiple fractures of ribs of left side: Status: Acute (17) Atelectasis of left lung: Status: Acute Discharge Plan Disposition Patient Disposition: Home Condition: Good Discharge Details Reason For Visit: blunt chest trauma/left rib fractures Admit Date/Time: 04/26/24 22:08 Admit Provider: Brenda Padilla Attending Provider: Brenda Padilla Primary Care Provider: Beena Lovett [facility] Hospital Course: Jose is 74 years old. He was trying to move his drill press, when he tripped and fell from a standing level height, striking the left side of his thorax. He came to the emergency department for evaluation of his pain was found to have left-sided rib fractures with some atelectasis on imaging. Past medical history is most significant for chronic obstructive pulmonary disease with some bronchial stenosis. While in the hospital, he was started on a multimodal regimen for pain. Ultrasound-guided nerve blocks with significant improvement of his pain. By the next hospital day, he was trying greater than 300 mL on the incentive spirometer with a strong cough. He had a mild oxygen requirement which is no different than home. He was discharged home with instructions for rib longterm Meds and New Rx's Prescriptions: New carisoprodol [Soma] 350 mg tablet 350 mg PO TID Qty: 15 0RF Rx Instructions: Take 1 tablet by mouth up to every 8 hours if needed for muscle spasm Continued atorvastatin 10 mg Tablet 10 mg PO HS Stiolto Respimat 2.5-2.5 mcg/actuation Mist 1 puff Inhalation BID ergocalciferol (vitamin D2) 50,000 unit Capsule 1 cap PO DIRECTED Rx Instructions: weekly multivitamin with minerals Tablet 1 tab PO QAM lisinopril 10 mg Tablet 10 mg PO DAILY albuterol sulfate 90 mcg/actuation Aerosol Powdr Breath Activated 2 inh INHALATION Q4H PRN hydrochlorothiazide 25 mg Tablet 25 mg PO DAILY aspirin 81 mg capsule 81 mg PO DAILY Discharge Instructions Instructions: Rib fractures in adults Additional Instructions: Jose, it was very nice meeting in the hospital, and am so sorry that you are suffering from some broken ribs. Like we talked about before your discharge, expect several weeks before you are back to normal. The most important thing that you can do in the meantime, is to slowly increase your activity each day, and focus on working on deep breathing exercises. I typically recommend that patients with rib fractures alternate [id number] Tylenol and ibuprofen every 6 hours for about 2 days. Then switch to using it as needed. I have added a prescription for a medication called carisprodol ( or Soma). To help with any muscle spasms that might occur in the days to come. It is important that you do not drive while using this medication. Before discharge, I also mention to the use of patches on your skin to help with pain. However, because of the type of rib block that you had performed, that will not be an option. You are welcome to use [id number] pain creams such as IcyHot. However, please be careful to make sure that the medications do not contain lidocaine. You should look for menthol or methyl salicylate based products. I would like you to continue using the incentive spirometer that you worked with when you were in the hospital. If you can remember to use it a few times each hour, that would be outstanding. If that is hard to remember, use it with your meals. Do a few deep breaths with breakfast, few deep breaths with lunch, and a few deep breaths with dinner. I have attached some instructions below regarding some breathing exercises that most of my rib fracture patients find helpful. I encourage you to schedule a follow-up visit with your primary care physician in the next 2 weeks. If you have any questions, or concerns prior to that, please do not hesitate to contact my office at [phone] Breathing Exercises: ? Breathing control is gentle breathing for 1 minute. Breathe in and out through the nose if you can. Feel your belly rise as you breathe in and sink as you breathe out. The breath should be gentle. ? Thoracic Expansions (Bigger breaths) Breath in and out through your nose - take a slow, large breath in, hold for the count of 3 if you can and breathe out gently. The cycle of breathing should be controlled, try to keep the noise of the air passing in and out silent. Repeat up to 3 times only. ? Forced Expiratory Technique It is know as a Ayon. Breathe in through your nose (as if smelling a vandana) then with your mouth open force the air out (as if trying to steam up a mirror). 2 slow, long huffs and then 2 fast short huffs. Before you get out of bed in the morning, do a short round of breathing exercises: Start with breathing control for 10 breaths. Then do thoracic expansion for 3 breath. Then breathing control for 10 breaths, followed by forced expiratory technique for 3 breaths, and finish with 10 more breathing control breaths. Repeat this before you go to sleep in the evening time. You can also do it throughout the course of the day if you find it helpful Some basic exercises include the following: ? Shoulder raises (upwards) Try moving your arms (together or separately) in front of your body, as if reaching up to your head. ? Side bends In sitting (or standing), gently allow your trunk to bend over to one side, return to the start position before bending to the other side. ? Shoulder raises (sideways) Try moving your arms (together or separately) out to the side, as if raising your arms up to your head. ? Coughing/clearing phlegm Place your arm around your body as if your were hugging yourself (see picture). This makes the action of coughing more comfortable. Try to avoid excessive coughing. ? Trunk rotations. In sitting, place your arms across your body and gently turn your upper body to one side, return to the start position and the turn to the other side. Activity:: Activity as Tolerated Equipment/Supplies:: Incentive spirometer Diet:: As Tolerated DS: Summary Time Spent with Patient providing and/or coordinating discharge services: Less than 30 minutes Status at Discharge Functional status at discharge: independent ambulation Overall status at discharge: patient is progressing back to baseline Mental Status: mental status grossly normal Speech and Movement: speech and movement normal Mood: congruent mood Affect: normal affect Quality:SDOH Health Related Social Needs: Health related social needs material hardship Exam Resp Other: He has some bronchial breath sounds that improved with coughing. He has excellent cough mechanics and pain control. He has minimal tenderness on the left flank with deep palpation Psych Mental Status: mental status grossly normal Speech and Movement: speech and movement normal Mood: congruent mood Affect: normal affect DS: Data Vitals/I&O Vitals and I&O: Vital Signs Temperature 98.1 F 04/28/24 11:29 Temperature Source Temporal Artery Scan 04/28/24 11:29 Pulse 79 04/28/24 11:29 Pulse 69 04/27/24 20:00 Respiratory Rate 17 04/28/24 11:29 Respiratory Effort Normal 04/27/24 00:00 Respiratory Depth Normal 04/27/24 00:00 Respiratory Pattern Normal 04/27/24 00:00 Blood Pressure 118/73 04/28/24 11:29 Blood Pressure Mean 96 04/27/24 19:09 Blood Pressure Position Supine 04/27/24 00:00 Pulse Oximetry 90 L 04/28/24 11:29 Oxygen Delivery Method Nasal Cannula 04/28/24 11:29 Oxygen Flow Rate 2 04/28/24 11:29 Pain Level 5 04/28/24 11:29 Comment RN Notified 04/28/24 03:59 Intake & Output 04/27/24 04/28/24 04/28/24 23:59 11:59 23:59 Intake Total 1410 / 1410 480 / 480 Output Total 1900 / 3375 1300 / 1300 Balance -490 / -1965 -820 / -820 Intake: IV Oral 1400 / 1400 480 / 480 Output: Urine 1900 / 3375 1300 / 1300 Other: Urine Color Yellow Yellow Urine Appearance Clear Clear Urine Odor None Normal Voiding Methods Urinal Urinal PFSH All Active Problems Hypoxia (Acute) Fracture, ribs (Acute) Atelectasis of left lung (Acute) Multiple fractures of ribs of left side (Acute) Lung contusion (Acute) Aortic aneurysm (Chronic) Atherosclerosis (Acute) PAD (peripheral artery disease) (Acute) Colon cancer (Chronic) Coronary artery calcification seen on CAT scan (Acute) Hyperlipemia (Acute) Personal history of nicotine dependence (Acute) Narrowing of airway (Acute) 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 (Acute) DVT prophylaxis (Acute) Hypertension (Chronic) COPD (chronic obstructive pulmonary disease) (Chronic) Medical History KAY (acute kidney injury) Hypotension Pulmonary nodule Surgical History S/P left colectomy 2009 for colon cancer Hx of radical prostatectomy 2018 prostate cancer Social History Smoking/Tobacco Use Status: Former Tobacco Use Quit Date: 07/23/99 Tobacco: How many years used: 40 Smoking risk assessment performed?: Yes Alcohol Intake: never Drug use: Never Substance use type: does not use Housing: house Do you feel safe at home: Yes Do you feel safe in your relationship?: Yes Time Spent with Patient Time Spent with Patient: <45 minutes Time was spent: preparing to see the patient(eg.review tests), indepentently interpreting results, counseling the patient and care coordination
--- NOTE | 2024-04-28 13:14 | PGE_ITS ---
Date of Service Date of service: 04/28/24 Time of Service: 13:17 Assessment and Plan Assessment and plan (1) Fracture, ribs: Status: Acute Assessment and plan: Jose seems to be doing very well after the nerve block. He has not required any kind of intravenous narcotics, and his pulmonary mechanics are excellent. With adequate pain control, and good ventilation and oxygenation, I think is reasonable to discharge him home, we reviewed some exercises to perform every day to help improve pulmonary mechanics. I explained that I will probably be several weeks before he gets back to feeling like his usual self. I am happy to see him again at any point in the upcoming days if he has any issues at all. Subjective Subjective Interval history since last seen: Jose looks very good. He sitting up in the chair and eating lunch. He is eager to get discharged home today. Exam Resp Other: Lungs are mostly clear, with a little bit of bronchial breath sounds. They i mprove with his cough. He has a forceful cough, and no signs of dyspnea. His pain seems very well-controlled, and is generating over 3000 mL on the incentive spirometer. I do not appreciate any crepitus on exam. Objective Last Vital Signs Temp 98.1 F 04/28/24 11:29 Pulse 79 04/28/24 11:29 Resp 17 04/28/24 11:29 BP 118/73 04/28/24 11:29 Pulse Ox 90 L 04/28/24 11:29 Time Spent with Patient Time Spent with Patient: <25 minutes Time was spent: preparing to see the patient(eg.review tests), indepentently interpreting results and counseling the patient
--- NOTE | 2024-04-28 15:36 | PDOC.CMDIS ---
Date of service: 04/28/24 Time of Service: 12:30 LACE Index Scoring Tool Questions: Length of Stay (in days): 2 Was the patient admitted via the E.D.?: Yes Comorbidities: Chronic Pulmonary Disease and Any Tumor E.D. Visits: 1 Answers: Total Score: 11 Risk of Readmission: High Risk Care Management Discharge Plan Reason for Hospitalization: rib fracture/hypoxia s/p fall Discharge Plan: Ed is discharged home with new orders for a muscle relaxer for pain control. He will f/u with his community provider and continue per the plan of care. Ed promises to be more careful and less hurried when trying to do work by himself. He will transport in a private vehicle with his . Patient/Family Education Needs: Review of d/c instructions, activity and limitations, f/u plan and discuss ask me 3. SDOH Health Related Social Needs: Health related social needs material hardship Health related social needs: material hardship(utilities)(Z59.87)
== END 2024-04-28 14:00 | disposition home or self-care (01) | DRG 184 ==
LOC: ER 22:38 → ICU 23:51 → MS 04-27 23:23
PROVIDERS: Admitting Provider Surgery; Emergency Provider Emergency Medicine; Visit Provider Surgery
DX: S22.42XA Multiple fractures of ribs, left side, initial encounter for closed fracture (principal); C34.32 Malignant neoplasm of lower lobe, left bronchus or lung; S27.321A Contusion of lung, unilateral, initial encounter; J98.11 Atelectasis; N17.9 Acute kidney failure, unspecified; I10 Essential (primary) hypertension; R91.1 Solitary pulmonary nodule; E78.5 Hyperlipidemia, unspecified; I25.10 Atherosclerotic heart disease of native coronary artery without angina pectoris; I71.43 Infrarenal abdominal aortic aneurysm, without rupture; I73.9 Peripheral vascular disease, unspecified; Z79.899 Other long term (current) drug therapy; Z99.81 Dependence on supplemental oxygen; W18.09XA Striking against other object with subsequent fall, initial encounter; Z87.891 Personal history of nicotine dependence; Z85.038 Personal history of other malignant neoplasm of large intestine; Z85.46 Personal history of malignant neoplasm of prostate; Z92.3 Personal history of irradiation; J98.09 Other diseases of bronchus, not elsewhere classified; Y84.2 Radiological procedure and radiotherapy as the cause of abnormal reaction of the patient, or of later complication, without mention of misadventure at the time of the procedure; J43.9 Emphysema, unspecified; Z90.49 Acquired absence of other specified parts of digestive tract; S50.02XA Contusion of left elbow, initial encounter; S80.02XA Contusion of left knee, initial encounter; I70.90 Unspecified atherosclerosis
CPT/HCPCS: 36415; 71250; 80053; 90656; 94640; 97162; 97530; 99285; J1650; 71045; 71046; 84484; 85025; 93005; 93010; 94664; 94668; 94760; C9290; J0665; J3490; J7620

== ENCOUNTER 2024-05-22 09:44 | Outpatient (RCR) | payer SELFPAY ==
[2024-04-22 13:18] VITALS: BP 152/81; PULSE 70
[2024-04-24 09:57] VITALS: BP 147/83; PULSE 77; O2SAT 91
[2024-05-13 10:12] VITALS: BP 149/84; PULSE 87; O2SAT 90
[2024-05-15 09:58] VITALS: BP 137/80; PULSE 84; O2SAT 92
[2024-05-20 10:13] VITALS: BP 138/82; PULSE 90; O2SAT 92
[2024-05-22 10:48] VITALS: BP 147/71; PULSE 85
== END 2024-05-22 23:59 | disposition home or self-care (01) ==
LOC: CR 09:44
PROVIDERS: Visit Provider Internal Medicine Cardiovascular Disease
DX: R69 Illness, unspecified (principal)

== ENCOUNTER 2024-06-12 10:04 | Outpatient (RCR) | payer SELFPAY ==
[2024-05-23 00:15] VITALS: BP 147/71; PULSE 85
[2024-05-27 10:09] VITALS: BP 135/77; PULSE 84; O2SAT 94
[2024-05-29 10:14] VITALS: BP 130/78; PULSE 87; O2SAT 91
[2024-06-03 09:53] VITALS: BP 124/75; PULSE 76; O2SAT 92
[2024-06-05 09:49] VITALS: BP 125/62; PULSE 75; O2SAT 92
[2024-06-10 10:07] VITALS: BP 127/75; O2SAT 93
[2024-06-12 10:05] VITALS: BP 134/78; PULSE 72; O2SAT 92
== END 2024-06-21 23:59 | disposition home or self-care (01) ==
LOC: CR 10:04
PROVIDERS: Visit Provider Internal Medicine Cardiovascular Disease
DX: R69 Illness, unspecified (principal)

== ENCOUNTER 2024-07-22 10:48 | Outpatient (RCR) | payer SELFPAY ==
[2024-06-22 00:06] VITALS: BP 147/71; PULSE 85
[2024-06-24 10:41] VITALS: BP 150/73; PULSE 75; O2SAT 92
[2024-06-26 09:50] VITALS: BP 130/74; PULSE 76; O2SAT 94
[2024-07-01 10:09] VITALS: BP 135/79; PULSE 86; O2SAT 92
[2024-07-03 09:58] VITALS: BP 135/68; PULSE 79; O2SAT 93
[2024-07-08 10:04] VITALS: BP 143/77; PULSE 85; O2SAT 90
[2024-07-10 10:22] VITALS: BP 119/72; PULSE 83
[2024-07-15 09:57] VITALS: BP 142/86; PULSE 95; O2SAT 96
[2024-07-17 09:54] VITALS: BP 135/81; PULSE 82; O2SAT 92
[2024-07-22 10:56] VITALS: BP 139/85; PULSE 81; O2SAT 91
== END 2024-07-22 23:59 | disposition home or self-care (01) ==
LOC: CR 10:48
PROVIDERS: Visit Provider Internal Medicine Cardiovascular Disease
DX: R69 Illness, unspecified (principal)

== ENCOUNTER 2024-08-19 10:13 | Outpatient (RCR) | payer SELFPAY ==
[2024-07-23 00:06] VITALS: BP 147/71; PULSE 85
[2024-07-24 10:19] VITALS: BP 136/82; PULSE 82; O2SAT 94
[2024-07-29 10:07] VITALS: BP 129/79; PULSE 98; O2SAT 90
[2024-07-31 10:38] VITALS: BP 166/83; PULSE 88; O2SAT 90
[2024-08-05 10:01] VITALS: BP 138/72; PULSE 76; O2SAT 90
[2024-08-07 10:07] VITALS: BP 143/86; PULSE 83; O2SAT 85
[2024-08-12 10:02] VITALS: BP 162/82; PULSE 66; O2SAT 90
[2024-08-14 10:22] VITALS: BP 151/81; PULSE 74; O2SAT 91
[2024-08-19 10:15] VITALS: BP 154/85; PULSE 82; O2SAT 91
== END 2024-08-22 23:59 | disposition home or self-care (01) ==
LOC: CR 10:13
PROVIDERS: Visit Provider Internal Medicine Cardiovascular Disease
DX: R69 Illness, unspecified (principal)

== ENCOUNTER 2024-09-18 11:09 | Outpatient (RCR) | payer SELFPAY ==
[2024-08-26 10:22] VITALS: BP 136/81; PULSE 80; O2SAT 90
[2024-09-02 10:43] VITALS: BP 138/77; PULSE 79; O2SAT 94
[2024-09-04 09:58] VITALS: BP 146/82; PULSE 79; O2SAT 91
[2024-09-09 10:21] VITALS: BP 135/76; PULSE 78; O2SAT 94
[2024-09-11 15:36] VITALS: BP 135/82; PULSE 85; O2SAT 92
[2024-09-16 10:18] VITALS: BP 151/78; PULSE 77; O2SAT 92
[2024-09-18 13:42] VITALS: BP 138/82; PULSE 85
== END 2024-09-19 23:59 | disposition home or self-care (01) ==
LOC: CR 11:09
PROVIDERS: Visit Provider Internal Medicine Cardiovascular Disease
DX: R69 Illness, unspecified (principal)

== ENCOUNTER 2024-10-16 09:51 | Outpatient (RCR) | payer SELFPAY ==
[2024-09-20 00:09] VITALS: BP 138/82; PULSE 85
[2024-09-23 14:36] VITALS: BP 131/77; PULSE 93; O2SAT 93
[2024-09-25 10:02] VITALS: BP 123/76; PULSE 75; O2SAT 90
[2024-09-30 10:09] VITALS: BP 137/81; PULSE 74; O2SAT 91
[2024-10-02 10:01] VITALS: BP 123/75; PULSE 79; O2SAT 93
[2024-10-07 10:05] VITALS: BP 128/81; PULSE 87; O2SAT 92
[2024-10-09 10:25] VITALS: BP 143/80; PULSE 78; O2SAT 93
[2024-10-14 10:47] VITALS: BP 137/7; PULSE 78; O2SAT 90
[2024-10-16 10:03] VITALS: BP 150/77; PULSE 76; O2SAT 93
== END 2024-10-20 23:59 | disposition home or self-care (01) ==
LOC: CR 09:51
PROVIDERS: Visit Provider Internal Medicine Cardiovascular Disease
DX: R69 Illness, unspecified (principal)

== ENCOUNTER 2024-11-18 10:26 | Outpatient (RCR) | payer SELFPAY ==
[2024-10-21 00:05] VITALS: BP 138/82; PULSE 85
[2024-10-21 11:03] VITALS: BP 132/89; PULSE 88; O2SAT 93
[2024-10-23 10:00] VITALS: BP 124/77; PULSE 81; O2SAT 88
[2024-10-28 10:40] VITALS: BP 143/82; PULSE 76; O2SAT 93
[2024-10-30 10:00] VITALS: BP 141/81; PULSE 78; O2SAT 90
[2024-11-04 10:50] VITALS: BP 148/79; PULSE 74; O2SAT 91
[2024-11-06 10:20] VITALS: BP 128/83; PULSE 83
[2024-11-11 12:30] VITALS: BP 131/83; PULSE 78; O2SAT 90
[2024-11-13 10:10] VITALS: BP 121/76; PULSE 86; O2SAT 94
[2024-11-18 10:28] VITALS: BP 135/83; PULSE 79; O2SAT 90
== END 2024-11-19 23:59 | disposition home or self-care (01) ==
LOC: CR 10:26
PROVIDERS: Visit Provider Internal Medicine Cardiovascular Disease
DX: R69 Illness, unspecified (principal)

== ENCOUNTER 2024-12-18 10:31 | Outpatient (RCR) | payer SELFPAY ==
[2024-11-20 00:16] VITALS: BP 138/82; PULSE 85
[2024-11-20 11:04] VITALS: BP 133/86; PULSE 75; O2SAT 94
[2024-11-25 10:22] VITALS: BP 133/80; PULSE 68; O2SAT 96
[2024-11-27 10:22] VITALS: BP 141/81; PULSE 73; O2SAT 94
[2024-12-02 12:00] VITALS: BP 119/69; PULSE 72; O2SAT 91
[2024-12-04 10:48] VITALS: BP 128/82; PULSE 71; O2SAT 93
[2024-12-09 10:15] VITALS: BP 139/75; PULSE 73; O2SAT 93
[2024-12-11 10:09] VITALS: BP 144/82; PULSE 91; O2SAT 91
[2024-12-18 10:54] VITALS: BP 141/87; PULSE 78; O2SAT 92
== END 2024-12-20 23:59 | disposition home or self-care (01) ==
LOC: CR 10:31
PROVIDERS: Visit Provider Internal Medicine Cardiovascular Disease
DX: R69 Illness, unspecified (principal)

== ENCOUNTER 2025-01-15 10:00 | Outpatient (RCR) | payer SELFPAY ==
[2024-12-21 00:09] VITALS: BP 138/82; PULSE 85
[2024-12-23 11:12] VITALS: BP 137/81; PULSE 71
[2024-12-25 10:14] VITALS: BP 131/77; PULSE 75; O2SAT 92
[2025-01-06 10:07] VITALS: BP 132/82; PULSE 77; O2SAT 90
[2025-01-08 10:39] VITALS: BP 137/79; PULSE 78
[2025-01-13 10:19] VITALS: BP 126/81; PULSE 80; O2SAT 92
[2025-01-15 10:00] VITALS: BP 123/81; PULSE 71; O2SAT 94
== END 2025-01-19 23:59 | disposition home or self-care (01) ==
LOC: CR 10:00
PROVIDERS: Visit Provider Internal Medicine Cardiovascular Disease
DX: R69 Illness, unspecified (principal)

== ENCOUNTER 2025-02-19 10:00 | Outpatient (RCR) | payer SELFPAY ==
[2025-01-20 10:13] VITALS: BP 134/82; PULSE 69; O2SAT 95
[2025-01-27 10:05] VITALS: BP 124/83; PULSE 74; O2SAT 93
[2025-02-03 10:42] VITALS: BP 139/82; PULSE 76; O2SAT 92
[2025-02-05 10:00] VITALS: BP 128/79; PULSE 78; O2SAT 93
[2025-02-10 10:19] VITALS: BP 153/87; PULSE 76; O2SAT 90
[2025-02-12 11:05] VITALS: BP 128/81; PULSE 81; O2SAT 93
[2025-02-17 10:28] VITALS: BP 123/86; PULSE 76; O2SAT 90
[2025-02-19 10:06] VITALS: BP 137/81; PULSE 78; O2SAT 92
== END 2025-02-19 23:59 | disposition home or self-care (01) ==
LOC: CR 10:00
PROVIDERS: Visit Provider Internal Medicine Cardiovascular Disease
DX: R69 Illness, unspecified (principal)

== ENCOUNTER 2025-03-19 10:00 | Outpatient (RCR) | payer SELFPAY ==
[2025-02-20 00:23] VITALS: BP 137/81; PULSE 78
[2025-03-03 10:00] VITALS: BP 129/74; PULSE 79; O2SAT 92
[2025-03-05 09:52] VITALS: BP 134/86; PULSE 79; O2SAT 88
[2025-03-10 11:22] VITALS: BP 144/84; PULSE 71
[2025-03-12 10:13] VITALS: BP 147/77; PULSE 73; O2SAT 95
[2025-03-17 10:10] VITALS: BP 146/79; PULSE 74; O2SAT 92
[2025-03-19 10:00] VITALS: BP 126/66; PULSE 75; O2SAT 91
== END 2025-03-22 23:59 | disposition home or self-care (01) ==
LOC: CR 10:00
PROVIDERS: Visit Provider Internal Medicine Cardiovascular Disease
DX: R69 Illness, unspecified (principal)

== ENCOUNTER 2025-04-21 10:00 | Outpatient (RCR) | payer SELFPAY ==
[2025-03-24 10:27] VITALS: BP 118/69; PULSE 72; O2SAT 92
[2025-03-26 10:23] VITALS: BP 124/72; PULSE 67; O2SAT 93
[2025-04-02 10:29] VITALS: BP 120/74; PULSE 76; O2SAT 92
[2025-04-07 10:40] VITALS: BP 138/77; PULSE 76; O2SAT 91
[2025-04-09 10:29] VITALS: BP 142/82; PULSE 68; O2SAT 95
[2025-04-14 10:06] VITALS: BP 160/74; PULSE 78; O2SAT 93
[2025-04-16 10:00] VITALS: BP 133/85; PULSE 75; O2SAT 91
[2025-04-16 10:05] VITALS: O2SAT 94
[2025-04-21 10:24] VITALS: BP 120/68; PULSE 77; O2SAT 92
== END 2025-04-21 23:59 | disposition home or self-care (01) ==
LOC: CR 10:00
PROVIDERS: Visit Provider Internal Medicine Cardiovascular Disease
DX: R69 Illness, unspecified (principal)

== ENCOUNTER 2025-05-21 10:00 | Outpatient (RCR) | payer SELFPAY ==
[2025-04-22 00:09] VITALS: BP 120/68; PULSE 77
[2025-04-28 10:09] VITALS: BP 128/79; PULSE 82; O2SAT 92
[2025-05-05 11:26] VITALS: BP 127/75; PULSE 79; O2SAT 91
[2025-05-07 10:16] VITALS: BP 124/82; PULSE 75
[2025-05-14 10:07] VITALS: BP 147/86; PULSE 71; O2SAT 90
[2025-05-19 10:25] VITALS: BP 113/72; PULSE 80; O2SAT 93
[2025-05-21 10:00] VITALS: BP 126/80; PULSE 79; O2SAT 88
== END 2025-05-22 23:59 | disposition home or self-care (01) ==
LOC: CR 10:00
PROVIDERS: Visit Provider Internal Medicine Cardiovascular Disease
DX: R69 Illness, unspecified (principal)

== ENCOUNTER 2025-06-16 10:00 | Outpatient (RCR) | payer SELFPAY ==
[2025-05-23 00:21] VITALS: BP 126/80; PULSE 79
[2025-05-26 10:26] VITALS: BP 138/82; PULSE 78; O2SAT 93
[2025-05-28 11:24] VITALS: BP 138/81; PULSE 71; O2SAT 92
[2025-06-02 10:20] VITALS: BP 135/84; PULSE 73
[2025-06-04 10:27] VITALS: BP 128/82; PULSE 83; O2SAT 92
[2025-06-09 10:26] VITALS: BP 132/83; PULSE 78; O2SAT 89
[2025-06-11 10:26] VITALS: BP 139/81; PULSE 71; O2SAT 91
[2025-06-16 10:14] VITALS: BP 141/84; PULSE 79; O2SAT 90
== END 2025-06-21 23:59 | disposition home or self-care (01) ==
LOC: CR 10:00
PROVIDERS: Visit Provider Internal Medicine Cardiovascular Disease
DX: R69 Illness, unspecified (principal)

== ENCOUNTER 2025-07-19 17:41 | Emergency (ER) | payer OTHER, SELFPAY ==
[2025-07-19 17:42] VITALS: BP 117/77; PULSE 107; RESP 22; TEMP 37; O2SAT 91
--- NOTE | 2025-07-19 17:45 | DI.RAD_ITS ---
Exam(s) XR CHEST 2V PA LATERAL EXAM: XR CHEST 2V PA LATERAL CLINICAL HISTORY: cough. TECHNIQUE: 2D digital imaging was performed. COMPARISON: CR XR CHEST 2V PA LATERAL from 04/28/2024 FINDINGS: 2 views: Heart size is normal. The mediastinum is not widened. COPD findings again noted. No evidence of infiltrate in the right lung. Healed right 5th rib fracture again noted. Increased markings in the left lung base are noted. No obvious pleural effusions. Compression fracture of a mid-lower thoracic vertebral body now evident. IMPRESSION: COPD. Left lung base infiltrate. No obvious pleural effusions. Session fracture of mid-lower thoracic vertebra noted. This was not evident on the lateral image of April 2024. DATA REPOSITORY: RADIATION DOSE DELIVERED:
[2025-07-19 18:54] VITALS: RESP 16
[2025-07-19] MEDS: Albuterol/Ipratropium 3 ML UPD VIAL UPD (18:54)
[2025-07-19 19:03] LABS: BE (Venous) 7 mmol/L (-2-3); HCO3 (Venous) 31 mmol/L (23-28); O2 Sat (Venous) 68 %; TCO2 (Venous) 28 mmol/L (24-29); pCO2 (Venous) 51 mmHg (41-51); pO2 (Venous) 36 mmHg
[2025-07-19 19:04] VITALS: RESP 18
[2025-07-19 19:05] LABS: Abs Immature Grans 0.05 10^3/uL (0.0-0.06); HCT 48.7 % (40.0-50.0); HGB 15.4 g/dL (13.5-17.5); Immature Grans % 0.4 %; MCH 27.7 pg (27.0-33.0); MCHC 31.6 % (32.0-36.0); MCV 88 fL (80-95); MPV 9.9 fL (8.0-11.0); Platelet Count 402 10^3/uL (130-400); RBC 5.56 10^6/uL (4.36-5.78); RDW 14.1 % (11.8-14.1); RDW-SD 45.3 fL; WBC 13.19 10^3/uL (4.4-10.8)
[2025-07-19 19:19] LABS: INR 1.0 (0.9-1.1); PTT Activated 24.6 sec (20.6-30.2); Prothrombin Time 9.9 sec (9.1-11.1)
[2025-07-19 19:25] LABS: Troponin I 9 ng/L (<54)
[2025-07-19 19:27] LABS: ALT 27 U/L (10-49); AST 23 U/L (<34); Albumin 4.3 g/dL (3.2-5.0); Alkaline Phosphatase 88 U/L (46-116); Anion Gap 6 mmol/L (3-11); BUN 24 mg/dL (9-23); Bilirubin, Total 0.6 mg/dL (0.2-1.2); CO2 31.0 mmol/L (20.0-31.0); Calcium 9.1 mg/dL (8.3-10.6); Chloride 101 mmol/L (98-107); Glucose 106 mg/dL (74-106); Magnesium 1.9 mg/dL (1.6-2.6); Potassium 4.3 mmol/L (3.5-5.1); Sodium 138 mmol/L (136-145); Total Protein 7.3 g/dL (5.7-8.2)
[2025-07-19 19:56] LABS: COVID-19 PCR Negative (Negative); RSV PCR Negative (Negative)
[2025-07-19 19:57] LABS: Glucose Negative (Negative)
[2025-07-19 20:33] LABS: Troponin I 8 ng/L (<54)
[2025-07-19] MEDS: cefTRIAXone 2 GM/50 ML BAG IVPB (20:34)
[2025-07-19] MEDS: Normal Saline 1,000 ML 1000 ML IV (20:34)
--- NOTE | 2025-07-19 21:27 | ED.GENADUL_ITS ---
Discharge Plan Disposition Patient Disposition: Home Discharge Details Clinical Impression: Pneumonia, Hx of gout Primary Care Provider: Richard Jones ED Provider: Shahid Pozo Home Meds and New Rx's Prescriptions: New doxycycline monohydrate 100 mg capsule 100 mg PO BID 7 Days Qty: 14 0RF amoxicillin-pot clavulanate 875-125 mg tablet 1 tab PO BID Qty: 14 0RF No Action atorvastatin 10 mg Tablet 10 mg PO HS Stiolto Respimat 2.5-2.5 mcg/actuation Mist 1 puff Inhalation BID ergocalciferol (vitamin D2) 50,000 unit Capsule 1 cap PO DIRECTED Rx Instructions: weekly multivitamin with minerals Tablet 1 tab PO QAM lisinopril 10 mg Tablet 10 mg PO DAILY albuterol sulfate 90 mcg/actuation Aerosol Powdr Breath Activated 2 inh INHALATION Q4H PRN hydrochlorothiazide 25 mg Tablet 25 mg PO DAILY aspirin 81 mg capsule 81 mg PO DAILY carisoprodol [Soma] 350 mg tablet 350 mg PO TID Qty: 15 0RF Rx Instructions: Take 1 tablet by mouth up to every 8 hours if needed for muscle spasm Discharge Instructions Instructions: Community-acquired pneumonia in adults Additional Instructions: As discussed, you received your first dose of IV antibiotics today, given the inclement weather, we will provide you with 2 doses of both Augmentin and doxycycline to take tomorrow should you have difficulty going outside. 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 Please complete the medications as directed. It was unclear as to the cause of your foot pain today although did respond to the treatment as I would expect gout to respond to as such I would recommend continuing use of Tylenol ibuprofen at home, and you received one-time dose of steroids here which should help as well. Please return emergency department for new or worsening symptoms such as fever, chills, pain or any other new or concerning symptoms. Stand Alone Forms: Portal Information HPI General Date/Time Provider Initiated Documentation: 07/19/25 17:41 . HPI Narrative: MDM/Narrative: 75-year-old male with past medical history of gout, COPD, presents for evaluation of multiple complaints. Patient's right foot pain is of unclear etiology, although the foot is displaying increased talar acts compared to the left, patient has no obvious swelling or erythema to suggest gout. No pain with axial loading of any joints of the foot or ankle, no evidence of cellulitis. Suspect that this could be a very early gouty arthritis, and a lack of trauma I have a low suspicion for acute bony injury. Will treat patient with a V Toradol, as well as IV steroids. Secondly, patient notes a new cough, which is productive of sputum. In the setting of his obvious tachycardia, and decreased pulse ox, I am concerned for possible COPD exacerbation as well as possible pneumonia or viral infection. Will obtain screening labs and chest x-ray to further elucidate. ED course: Lab workup was notable for leukocytosis, chest x-ray shows a left lung base infiltrate. Will start patient on ceftriaxone and azithromycin. Given the area is expecting an [place] weather this evening, will transition patient to p.o. CAP coverage with are availabl medications for discharge which will be Augmentin and doxycycline. Instructed to return to the emergency department for new or worsening symptoms. Disposition: Home HPI: 75-year-old male with past medical history of gout, COPD, diabetes, presents for evaluation of multiple complaints. Patient notes he developed atraumatic right foot pain 2 days ago which has been worsening. He notes the pain feels similar to prior episodes of gout. Denies any associated fever chills. He also reports change in his chronic cough, now productive of yellow sputum for 2 days. Denies associated fever, chills, hemoptysis, chest pain or any other new or concerning symptoms. ROS: Negative besides as mentioned above Exam: Gen: A&O NAD HEENT: NCAT, EOMI, not icteric. External ears normal. No rhinorrhea. Moist mucous membranes. Neck: Supple, full range of motion, no observable masses, No meningeal sign. Lungs: No Respiratory distress. CV: RRR, no edema. Abdomen: Soft, nondistended, No rebound tenderness. MSK: No joint swelling, no redness. The right foot has increased calor as compared to the left, there is mild tenderness to the right midfoot with palpation. Skin: No rashes, petechiae, lesions. Normal color per patient. Neuro: Normal Gait, Grossly intact. Psych: Appropriate for situation. Labs: Laboratory Tests Range/Units 07/19/25 07/19/25 07/19/25 18:25 18:55 19:05 WBC Cancelled 13.19 H RBC Cancelled 5.56 Hgb Cancelled 15.4 Hct Cancelled 48.7 MCV Cancelled 88 MCH Cancelled 27.7 MCHC Cancelled 31.6 L RDW Cancelled 14.1 Plt Count Cancelled 402 H MPV Cancelled 9.9 Immature Gran % Cancelled 0.4 Neutrophils % Cancelled 79.4 Band Neutrophils % Cancelled Lymphocytes % Cancelled 8.1 Atypical Lymphs % Cancelled Monocytes % Cancelled 9.2 Eosinophils % Cancelled 2.4 Basophils % Cancelled 0.5 Metamyelocytes % Cancelled Myelocytes % Cancelled Promyelocytes % Cancelled Other Cells % Cancelled Nucleated RBC % Cancelled 0.0 Absolute Neutrophils Cancelled 10.47 H Absolute Lymphocytes Cancelled 1.07 L Absolute Monocytes Cancelled 1.21 H Absolute Eosinophils Cancelled 0.32 Absolute Basophils Cancelled 0.07 RBC Morphology Cancelled Polychromasia Cancelled Hypochromasia Cancelled Poikilocytosis Cancelled Basophilic Stippling Cancelled Anisocytosis Cancelled Microcytosis Cancelled Macrocytosis Cancelled Spherocytes Cancelled Tear Drop Cells Cancelled Ovalocytes Cancelled Stomatocytes Cancelled [employer] Bodies Cancelled Haylee Cells/Echinocytes Cancelled Acanthocytes (Spur) Cancelled Schistocytes Cancelled PT Cancelled 9.9 INR Cancelled 1.0 APTT Cancelled 24.6 VBG pH Cancelled 7.40 VBG pCO2 Cancelled 51 VBG pO2 Cancelled 36 VBG HCO3 Cancelled 31 H VBG Total CO2 Cancelled 28 VBG O2 Saturation Cancelled 68 VBG Base Excess Cancelled 7 H VBG Lactate Cancelled 1.6 Sodium Cancelled 138 Potassium Cancelled 4.3 Chloride Cancelled 101 Carbon Dioxide Cancelled 31.0 Anion Gap Cancelled 6 BUN Cancelled 24 H Creatinine Cancelled 1.20 H Est GFR (CKD-EPI 2020) Cancelled 58.96 Glucose Cancelled 106 Calcium Cancelled 9.1 Magnesium Cancelled 1.9 Total Bilirubin Cancelled 0.6 AST Cancelled 23 ALT Cancelled 27 Alkaline Phosphatase Cancelled 88 Troponin I Cancelled 9 NT-Pro-B Natriuret Pep Cancelled 188 Total Protein Cancelled 7.3 Albumin Cancelled 4.3 Urine Color (Yellow) Urine Clarity (Clear) Urine pH (5-8) Ur Specific [place] (1.005-1.025) Urine Protein (Neg-Trace) mg/dL Urine Ketones (Negative) mg/dL Urine Blood (Negative) Urine Nitrite (Negative) Urine Bilirubin (Negative) Urine Urobilinogen (Up to 0.2) mg/dL Ur Leukocyte Esterase (Negative) Urine Glucose (Negative) mg/dL COVID-19 Source Nasopharynx SARS-CoV-2 (PCR) (Negative) Negative Influenza Type A (PCR) (Negative) Negative Influenza Type B (PCR) (Negative) Negative RSV (PCR) (Negative) Negative Range/Units 07/19/25 07/19/25 19:44 20:06 WBC RBC Hgb Hct MCV MCH MCHC RDW Plt Count MPV Immature Gran % Neutrophils % Band Neutrophils % Lymphocytes % Atypical Lymphs % Monocytes % Eosinophils % Basophils % Metamyelocytes % Myelocytes % Promyelocytes % Other Cells % Nucleated RBC % Absolute Neutrophils Absolute Lymphocytes Absolute Monocytes Absolute Eosinophils Absolute Basophils RBC Morphology Polychromasia Hypochromasia Poikilocytosis Basophilic Stippling Anisocytosis Microcytosis Macrocytosis Spherocytes Tear Drop Cells Ovalocytes Stomatocytes [employer] Bodies Haylee Cells/Echinocytes Acanthocytes (Spur) Schistocytes PT INR APTT VBG pH VBG pCO2 VBG pO2 VBG HCO3 VBG Total CO2 VBG O2 Saturation VBG Base Excess VBG Lactate Sodium Potassium Chloride Carbon Dioxide Anion Gap BUN Creatinine Est GFR (CKD-EPI 2020) Glucose Calcium Magnesium Total Bilirubin AST ALT Alkaline Phosphatase Troponin I 8 NT-Pro-B Natriuret Pep Total Protein Albumin Urine Color (Yellow) Yellow Urine Clarity (Clear) Clear Urine pH (5-8) 6.0 Ur Specific [place] (1.005-1.025) 1.025 Urine Protein (Neg-Trace) mg/dL Negative Urine Ketones (Negative) mg/dL Negative Urine Blood (Negative) Negative Urine Nitrite (Negative) Negative Urine Bilirubin (Negative) Negative Urine Urobilinogen (Up to 0.2) mg/dL 0.2 Ur Leukocyte Esterase (Negative) Negative Urine Glucose (Negative) mg/dL Negative COVID-19 Source SARS-CoV-2 (PCR) (Negative) Influenza Type A (PCR) (Negative) Influenza Type B (PCR) (Negative) RSV (PCR) (Negative) Radiology: Accession No. 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 TECHNIQUE: 2D digital imaging was performed. COMPARISON: CR XR CHEST 2V PA LATERAL from 04/28/2024 FINDINGS: 2 views: Heart size is normal. The mediastinum is not widened. COPD findings again noted. No evidence of infiltrate in the right lung. Healed right 5th rib fracture again noted. Increased markings in the left lung base are noted. No obvious pleural effusions. Compression fracture of a mid-lower thoracic vertebral body now evident. IMPRESSION: COPD. Left lung base infiltrate. No obvious pleural effusions. Session fracture of mid-lower thoracic vertebra noted. This was not evident on the lateral image of April 2024. DATA REPOSITORY: RADIATION DOSE DELIVERED: Related Data Home Medications ?Medication ?Instructions ?Recorded ?Confirmed atorvastatin 10 mg tablet 10 mg PO HS 05/03/18 5 ergocalciferol (vitamin D2) 1,250 1 cap PO DIRECTED 05/03/18 07/19/25 mcg (50,000 unit) capsule multivitamin with minerals 1 tab PO QAM 05/03/1807/19 tiotropium 2.5 mcg-olodaterol 2.5 1 puff inhalation BI D 05/03/18 07/19/25 mcg/actuation mist for inhalation (Stiolto Respimat) albuterol sulfate 90 mcg/actuation 2 inh inhalation Q4 H PRN 12/30/20 07/19/25 breath activated powder inhaler lisinopril 10 mg tablet 10 mg PO DAILY 12/30/2006/23 hydrochlorothiazide 25 mg tablet 25 mg PO DAILY 07/19/25 aspirin 81 mg capsule 81 mg PO DAILY 04/26/2406/23 carisoprodol 350 mg tablet (Soma) 350 mg PO TID #15 ta bs 04/28/24 07/19/25 amoxicillin 875 mg-potassium 1 tab PO BID #14 tabs clavulanate 125 mg tablet doxycycline monohydrate 100 mg 100 mg PO BID 7 days #1 4 caps 07/19/25 capsule Previous Rx's ?Medication ?Instructions ?Recorded carisoprodol 350 mg tablet (Soma) 350 mg PO TID #15 ta bs 04/28/24 amoxicillin 875 mg-potassium 1 tab PO BID #14 tabs clavulanate 125 mg tablet doxycycline monohydrate 100 mg 100 mg PO BID 7 days #1 4 caps 07/19/25 capsule Allergies Allergy/AdvReac Type Severity Reaction Status Date / Time No Known Allergies Allergy Unverified 07/19/25 17:49 General Stated Complaint: Vascular STEFFEN: 3 Course Vital Signs Vital signs: Vital Signs Temperature 37.0 C 07/19/25 17:42 Pulse 107 H 07/19/25 17:42 Respiratory Rate 22 07/19/25 17:42 Blood Pressure 117/77 07/19/25 17:42 Pulse Oximetry 91 L 07/19/25 17:42 Temperature 37.0 C 07/19/25 17:42 Pulse 107 H 07/19/25 17:42 Respiratory Rate 18 07/19/25 19:04 Respiratory Effort Normal 07/19/25 19:04 Respiratory Depth Normal 07/19/25 19:04 Respiratory Pattern Normal 07/19/25 19:04 Blood Pressure 117/77 07/19/25 17:42 Blood Pressure Position Sitting 07/19/25 17:42 Pulse Oximetry 91 L 07/19/25 17:42 Oxygen Delivery Method Room Air 07/19/25 17:42 Oxygen Flow Rate 0 07/19/25 17:42 Pain Level 5 07/19/25 17:42 Comment 5/10 without activities worsened when standing 07/19/25 17:42 Lab/Test Results Lab/Test Results: Laboratory Tests Range/Units 07/19/25 07/19/25 07/19/25 18:25 18:55 19:05 WBC Cancelled 13.19 H RBC Cancelled 5.56 Hgb Cancelled 15.4 Hct Cancelled 48.7 MCV Cancelled 88 MCH Cancelled 27.7 MCHC Cancelled 31.6 L RDW Cancelled 14.1 Plt Count Cancelled 402 H MPV Cancelled 9.9 Immature Gran % Cancelled 0.4 Neutrophils % Cancelled 79.4 Band Neutrophils % Cancelled Lymphocytes % Cancelled 8.1 Atypical Lymphs % Cancelled Monocytes % Cancelled 9.2 Eosinophils % Cancelled 2.4 Basophils % Cancelled 0.5 Metamyelocytes % Cancelled Myelocytes % Cancelled Promyelocytes % Cancelled Other Cells % Cancelled Nucleated RBC % Cancelled 0.0 Absolute Neutrophils Cancelled 10.47 H Absolute Lymphocytes Cancelled 1.07 L Absolute Monocytes Cancelled 1.21 H Absolute Eosinophils Cancelled 0.32 Absolute Basophils Cancelled 0.07 RBC Morphology Cancelled Polychromasia Cancelled Hypochromasia Cancelled Poikilocytosis Cancelled Basophilic Stippling Cancelled Anisocytosis Cancelled Microcytosis Cancelled Macrocytosis Cancelled Spherocytes Cancelled Tear Drop Cells Cancelled Ovalocytes Cancelled Stomatocytes Cancelled [employer] Bodies Cancelled Haylee Cells/Echinocytes Cancelled Acanthocytes (Spur) Cancelled Schistocytes Cancelled PT Cancelled 9.9 INR Cancelled 1.0 APTT Cancelled 24.6 VBG pH Cancelled 7.40 VBG pCO2 Cancelled 51 VBG pO2 Cancelled 36 VBG HCO3 Cancelled 31 H VBG Total CO2 Cancelled 28 VBG O2 Saturation Cancelled 68 VBG Base Excess Cancelled 7 H VBG Lactate Cancelled 1.6 Sodium Cancelled 138 Potassium Cancelled 4.3 Chloride Cancelled 101 Carbon Dioxide Cancelled 31.0 Anion Gap Cancelled 6 BUN Cancelled 24 H Creatinine Cancelled 1.20 H Est GFR (CKD-EPI 2020) Cancelled 58.96 Glucose Cancelled 106 Calcium Cancelled 9.1 Magnesium Cancelled 1.9 Total Bilirubin Cancelled 0.6 AST Cancelled 23 ALT Cancelled 27 Alkaline Phosphatase Cancelled 88 Troponin I Cancelled 9 NT-Pro-B Natriuret Pep Cancelled 188 Total Protein Cancelled 7.3 Albumin Cancelled 4.3 Urine Color (Yellow) Urine Clarity (Clear) Urine pH (5-8) Ur Specific [place] (1.005-1.025) Urine Protein (Neg-Trace) mg/dL Urine Ketones (Negative) mg/dL Urine Blood (Negative) Urine Nitrite (Negative) Urine Bilirubin (Negative) Urine Urobilinogen (Up to 0.2) mg/dL Ur Leukocyte Esterase (Negative) Urine Glucose (Negative) mg/dL COVID-19 Source Nasopharynx SARS-CoV-2 (PCR) (Negative) Negative Influenza Type A (PCR) (Negative) Negative Influenza Type B (PCR) (Negative) Negative RSV (PCR) (Negative) Negative Range/Units 07/19/25 07/19/25 19:44 20:06 WBC RBC Hgb Hct MCV MCH MCHC RDW Plt Count MPV Immature Gran % Neutrophils % Band Neutrophils % Lymphocytes % Atypical Lymphs % Monocytes % Eosinophils % Basophils % Metamyelocytes % Myelocytes % Promyelocytes % Other Cells % Nucleated RBC % Absolute Neutrophils Absolute Lymphocytes Absolute Monocytes Absolute Eosinophils Absolute Basophils RBC Morphology Polychromasia Hypochromasia Poikilocytosis Basophilic Stippling Anisocytosis Microcytosis Macrocytosis Spherocytes Tear Drop Cells Ovalocytes Stomatocytes [employer] Bodies [place] Cells/Echinocytes Acanthocytes (Spur) Schistocytes PT INR APTT VBG pH VBG pCO2 VBG pO2 VBG HCO3 VBG Total CO2 VBG O2 Saturation VBG Base Excess VBG Lactate Sodium Potassium Chloride Carbon Dioxide Anion Gap BUN Creatinine Est GFR (CKD-EPI 2020) Glucose Calcium Magnesium Total Bilirubin AST ALT Alkaline Phosphatase Troponin I 8 NT-Pro-B Natriuret Pep Total Protein Albumin Urine Color (Yellow) Yellow Urine Clarity (Clear) Clear Urine pH (5-8) 6.0 Ur Specific [place] (1.005-1.025) 1.025 Urine Protein (Neg-Trace) mg/dL Negative Urine Ketones (Negative) mg/dL Negative Urine Blood (Negative) Negative Urine Nitrite (Negative) Negative Urine Bilirubin (Negative) Negative Urine Urobilinogen (Up to 0.2) mg/dL 0.2 Ur Leukocyte Esterase (Negative) Negative Urine Glucose (Negative) mg/dL Negative COVID-19 Source SARS-CoV-2 (PCR) (Negative) Influenza Type A (PCR) (Negative) Influenza Type B (PCR) (Negative) RSV (PCR) (Negative) PFSH All Active Problems (Updated 07/19/25 @ 21:28 by Shahid Pozo MD) Hx of gout (Acute) Pneumonia (Acute) Hypoxia (Acute) Fracture, ribs (Acute) Atelectasis of left lung (Acute) Multiple fractures of ribs of left side (Acute) Lung contusion (Acute) Aortic aneurysm (Chronic) Atherosclerosis (Acute) PAD (peripheral artery disease) (Acute) Colon cancer (Chronic) Coronary artery calcification seen on CAT scan (Acute) Hyperlipemia (Acute) Personal history of nicotine dependence (Acute) Narrowing of airway (Acute) 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 (Acute) DVT prophylaxis (Acute) Hypertension (Chronic) COPD (chronic obstructive pulmonary disease) (Chronic) Medical History KAY (acute kidney injury) Hypotension Pulmonary nodule Surgical History S/P left colectomy 2009 for colon cancer Hx of radical prostatectomy 2018 prostate cancer Social History Smoking/Tobacco Use Status: Former Tobacco Use Quit Date: 07/23/99 Tobacco: How many years used: 40 Smoking risk assessment performed?: Yes Alcohol Intake: never Drug use: Never Substance use type: does not use Housing: house Do you feel safe at home: Yes Do you feel safe in your relationship?: Yes
[2025-07-19] MEDS: ACETAMINOPHEN 1,000 MG/100 ML BAG 400 MG IVPB (21:31)
[2025-07-19] MEDS: methylPREDNISolone SUCC 125 MG VIAL IVP (21:32)
[2025-07-19] MEDS: Ketorolac 15 MG/ML VIAL IVP (21:32)
[2025-07-19] MEDS: AZITHROMYCIN 500 MG in Normal Saline 250 ML 250 MG IVPB (21:33)
[2025-07-19] MEDS: Doxycycline Hyclate 100 MG, 2 CAPS/BTL PO (22:09)
[2025-07-19 22:10] VITALS: BP 119/70; PULSE 94; RESP 22; TEMP 36.6; O2SAT 92
[2025-07-19] MEDS: Amox. 875/Clav. 125, 2 TABS/BTL 1 TAB PO (22:10)
== END 2025-07-19 22:12 | disposition home or self-care (01) ==
PROVIDERS: Emergency Provider General Practice; PCP Family Medicine
DX: J18.9 Pneumonia, unspecified organism (principal); M79.671 Pain in right foot; Z87.39 Personal history of other diseases of the musculoskeletal system and connective tissue; Z87.09 Personal history of other diseases of the respiratory system
CPT/HCPCS: 36415; 80053; 82805; 87637; 94640; 96365; 96367; 96368; 96375; 99284; 71046; 81003; 83605; 83735; 83880; 84484; 85025; 85610; 85730; J0131; J0456; J0696; J1885; J2919; J7620

== ENCOUNTER 2025-07-21 10:00 | Outpatient (RCR) | payer SELFPAY ==
[2025-06-22 00:18] VITALS: BP 141/84; PULSE 79
[2025-06-25 10:23] VITALS: BP 121/70; PULSE 82; O2SAT 92
[2025-06-30 10:32] VITALS: BP 137/78; PULSE 97; O2SAT 92
[2025-07-07 10:55] VITALS: BP 139/79; PULSE 79; O2SAT 91
[2025-07-09 11:21] VITALS: BP 119/70; PULSE 76; O2SAT 93
[2025-07-14 09:56] VITALS: BP 115/69; PULSE 85; O2SAT 92
[2025-07-21 11:39] VITALS: BP 131/73; PULSE 83; O2SAT 92
== END 2025-07-22 23:59 | disposition home or self-care (01) ==
LOC: CR 10:00
PROVIDERS: Visit Provider Internal Medicine Cardiovascular Disease
DX: R69 Illness, unspecified (principal)